=== PATIENT | male | born 1950 | race African-American/Black ===

== ENCOUNTER 2017-03-10 16:21 | Emergency (ER) | payer MEDICARE, MEDICAID ==
[~2017-03-10] VITALS: Ht 172.7 cm; Wt 135.0 kg
[~2017-03-10 16:21] MED LIST: AMLO10TA4 PO; ASPI-1159 PO; ATOR80TA PO; BUDE6HFA IH; CLOP75TA33 PO; EZET10TA PO; FOLI-43 PO; GLIM1TAB2 PO; GLIM2TAB2 PO; GLYB2.5T4 PO; INSU100C11 SQ; INSU3INS6 SUBCUT; METF500T4 PO; METO-293 PO; OLOP2.5D OP; OMEP20TA80 PO; POTA20PA15 PO; SITA100T6 PO; TRAM50TA3 PO; TRAV5DRO4 OP
[2017-03-10 18:30] LABS: CARBON DIOXIDE 23 mEq/L (21-32); CHLORIDE 111 mEq/L (98-107); TROPONIN I 0.05 ng/mL (0.00-0.04)
[2017-03-10] MEDS ORDERED: MORPHINE SULFATE 10 MG/ML CPJ IM ONE (18:30)
[2017-03-10] MEDS ORDERED: ONDANSETRON 4MG ODT PO ONE (18:30)
[2017-03-10 18:45] LABS: BASOPHILS % 0.5 % (0.0-2.0); EOSINOPHILS % 3.5 % (0.0-5.0); HEMATOCRIT. 33.6 % (42.0-52.0); HEMOGLOBIN. 11.3 g/dL (14.0-18.0); MEAN CORPUSCULAR HEMOGLOBIN 29.5 pg (28.0-32.0); MEAN CORPUSCULAR VOLUME 87.7 fL (80.0-94.0); MEAN PLATELET VOLUME 8.5 fl (7.4-10.4); MONOCYTES % 7.2 % (2.0-8.0); NEUTROPHILS % 51.8 % (40.0-76.0); PLATELET 159 x1000/uL (130-400); RED BLOOD CELL COUNT 3.84 mill/uL (4.7-6.1); RED CELL DISTRIBUTION WIDTH 13.9 % (11.6-14.6)
[2017-03-10 18:47] LABS: INR 1.1; PARTIAL THROMBOPLASTIN TIME 27.8 sec (23.4-31.0); PROTHROMBIN TIME 11.1 sec (9.4-11.6)
[2017-03-10] MEDS ORDERED: SODIUM CHLORIDE 0.9% 1,000 ML IV ONE (19:02)
[2017-03-10 22:31] LABS: CLARITY URINE CLEAR (CLEAR); COLOR URINE YELLOW (YELLOW); GLUCOSE URINE NEGATIVE (NEGATIVE); KETONES URINE NEGATIVE (NEGATIVE); LEUKOCYTE ESTERASE URINE NEGATIVE (NEGATIVE); NITRITE URINE NEGATIVE (NEGATIVE); OCCULT BLOOD URINE NEGATIVE (NEGATIVE); PH URINE 5.5 (4.5-8.0); PROTEIN URINE NEGATIVE (NEGATIVE); SPECIFIC GRAVITY URINE 1.015 (1.005-1.030); UROBILINOGEN URINE 0.2 E.U./dL (0.2-1.0)
[2017-03-11 04:40] VITALS: BP 116/66
== END 2017-03-11 04:48 | disposition home or self-care (01) ==
LOC: ER 16:21
DX: R10.9 Unspecified abdominal pain (principal); F17.200 Nicotine dependence, unspecified, uncomplicated; F11.10 Opioid abuse, uncomplicated; J44.9 Chronic obstructive pulmonary disease, unspecified; I10 Essential (primary) hypertension; E11.9 Type 2 diabetes mellitus without complications; H40.9 Unspecified glaucoma; E78.00 Pure hypercholesterolemia, unspecified; Z95.1 Presence of aortocoronary bypass graft; Z95.0 Presence of cardiac pacemaker; Z79.4 Long term (current) use of insulin; Z79.82 Long term (current) use of aspirin
CPT/HCPCS: 36415; 71010; 74176; 80048; 80053; 81003; 82962; 83605; 83690; 84484; 85025; 85610; 85730; 93005; 96360; 96361; 96372; 99285; J2270; J7030; Q0162

== ENCOUNTER 2017-12-28 21:02 | Emergency (ER) | payer MEDICARE, MEDICAID ==
[~2017-12-28] VITALS: Ht 172.7 cm; Wt 140.0 kg
[~2017-12-28 21:02] MED LIST changes: -EZET10TA PO; -METF500T4 PO; +METF500T6 PO; +OMEP20TA2 PO; -OMEP20TA80 PO; +SITA100T11 PO; -SITA100T6 PO; +ZET10 PO
[2017-12-29] MEDS ORDERED: MORPHINE SULFATE 4 MG/ML CPJ (NOT FOR IM USE) IV ONE (01:00)
[2017-12-29 02:14] LABS: CHLORIDE 103 mEq/L (98-107)
[2017-12-29 02:18] LABS: BASOPHILS % 0.6 % (0.0-2.0); EOSINOPHILS % 4.4 % (0.0-5.0); HEMATOCRIT. 38.7 % (42.0-52.0); LYMPHOCYTES % 39.5 % (20.0-50.0); MEAN CORPUSCULAR HEMOGLOBIN 29.9 pg (28.0-32.0); MEAN PLATELET VOLUME 8.8 fl (7.4-10.4); MONOCYTES % 9.1 % (2.0-8.0); NEUTROPHILS % 46.4 % (40.0-76.0); PLATELET 181 x1000/uL (130-400); RED BLOOD CELL COUNT 4.35 mill/uL (4.7-6.1); RED CELL DISTRIBUTION WIDTH 14.3 % (11.6-14.6)
[2017-12-29 02:25] LABS: BETA HYDROXYBUTYRATE 0.1 mMol/L (0.0-0.3)
[2017-12-29 06:52] VITALS: BP 155/69
== END 2017-12-29 06:53 | disposition home or self-care (01) ==
LOC: ER 12-29 02:44
DX: M54.5 Low back pain (principal); E11.65 Type 2 diabetes mellitus with hyperglycemia; F17.210 Nicotine dependence, cigarettes, uncomplicated; Z79.84 Long term (current) use of oral hypoglycemic drugs; Z79.4 Long term (current) use of insulin
CPT/HCPCS: 36415; 80053; 82010; 82962; 85025; 93005; 96374; 99285; J2270

== ENCOUNTER 2018-03-19 06:00 | Inpatient (IN) | payer MEDICARE, MEDICAID ==
[~2018-03-19] VITALS: Ht 172.7 cm; Wt 120.2 kg
[2018-03-19 08:02] LABS: BASOPHILS % 0.6 % (0.0-2.0); CHLORIDE 111 mEq/L (98-107); EOSINOPHILS % 4.4 % (0.0-5.0); HEMATOCRIT. 36.8 % (42.0-52.0); HEMOGLOBIN. 12.5 g/dL (14.0-18.0); LYMPHOCYTES % 29.7 % (20.0-50.0); MEAN CORPUSCULAR HEMOGLOBIN 30.2 pg (28.0-32.0); MEAN CORPUSCULAR VOLUME 88.7 fL (80.0-94.0); MEAN PLATELET VOLUME 8.1 fl (7.4-10.4); MONOCYTES % 8.8 % (2.0-8.0); NEUTROPHILS % 56.5 % (40.0-76.0); PLATELET 201 x1000/uL (130-400); RED BLOOD CELL COUNT 4.15 mill/uL (4.7-6.1); RED CELL DISTRIBUTION WIDTH 14.5 % (11.6-14.6)
[2018-03-19 08:05] LABS: PROTHROMBIN TIME 10.5 sec (9.1-11.1)
[2018-03-19] MEDS ORDERED: ONDANSETRON HCL 4MG/2ML VIAL IV ONE (08:15)
[2018-03-19] MEDS ORDERED: MORPHINE SULFATE 4 MG/ML CPJ (NOT FOR IM USE) IV ONE (08:15)
[2018-03-19] MEDS ORDERED: DIPHENHYDRAMINE 50MG/ML VIAL IV ONE (09:45)
[2018-03-19] MEDS ORDERED: FUROSEMIDE 20MG/2ML VIAL IVP ONE (10:00)
[2018-03-19 11:57] LABS: CLARITY URINE CLEAR (CLEAR); COLOR URINE YELLOW (YELLOW); KETONES URINE NEGATIVE (NEGATIVE); LEUKOCYTE ESTERASE URINE NEGATIVE (NEGATIVE); NITRITE URINE NEGATIVE (NEGATIVE); OCCULT BLOOD URINE NEGATIVE (NEGATIVE); PH URINE 5.5 (4.5-8.0); PROTEIN URINE NEGATIVE (NEGATIVE); SPECIFIC GRAVITY URINE 1.017 (1.005-1.030); UROBILINOGEN URINE 0.2 E.U./dL (0.2-1.0)
[2018-03-19 15:17] VITALS: BP 145/70
[2018-03-19 15:31] VITALS: BP 145/71
[2018-03-19] MEDS ORDERED: DEXTROSE 50% WATER 50ML SYRINGE IV PRN (15:45)
[2018-03-19] MEDS ORDERED: MORPHINE SULFATE 4 MG/ML CPJ (NOT FOR IM USE) IV PRN (15:45)
[2018-03-19] MEDS ORDERED: ONDANSETRON HCL 4MG/2ML VIAL IV PRN (15:45)
[2018-03-19] MEDS ORDERED: HYDROCODONE/ACETAMINOPHEN 5/325MG TABLET PO PRN (15:45)
[2018-03-19] MEDS ORDERED: CETI10CA8 PO (15:46)
[2018-03-19] MEDS ORDERED: PENT400T11 PO (15:46)
[2018-03-19] MEDS: BLOOD SUGAR DIAGNOSTIC STRIP TEST SCH ×2 (16:14→21:31)
[2018-03-19] MEDS ORDERED: ONDANSETRON 4MG ODT PO PRN (16:15)
[2018-03-19] MEDS: INSULIN LISPRO 100 UNITS/ML SUBCUT SCH ×2 (16:59→21:31)
[2018-03-19 20:00] VITALS: BP 110/51
[2018-03-19] MEDS ORDERED: ATORVASTATIN CALCIUM 40MG TABLET PO SCH (21:00)
[2018-03-19] MEDS: ENOXAPARIN 40MG/0.4ML SYR SUBCUT SCH (21:22)
[2018-03-20] VITALS: BP 113/53
[2018-03-20 04:00] VITALS: BP 137/62
[2018-03-20] MEDS: BLOOD SUGAR DIAGNOSTIC STRIP TEST SCH ×2 (06:23→11:33)
[2018-03-20] MEDS: INSULIN LISPRO 100 UNITS/ML SUBCUT SCH ×2 (06:23→13:00)
[2018-03-20 07:30] LABS: BASOPHILS % 0.3 % (0.0-2.0); EOSINOPHILS % 4.7 % (0.0-5.0); HEMATOCRIT. 35.4 % (42.0-52.0); HEMOGLOBIN. 11.8 g/dL (14.0-18.0); LYMPHOCYTES % 42.3 % (20.0-50.0); MEAN CORPUSCULAR HEMOGLOBIN 29.6 pg (28.0-32.0); MEAN CORPUSCULAR VOLUME 88.6 fL (80.0-94.0); MEAN PLATELET VOLUME 8.4 fl (7.4-10.4); MONOCYTES % 10.3 % (2.0-8.0); NEUTROPHILS % 42.4 % (40.0-76.0); PLATELET 188 x1000/uL (130-400); RED BLOOD CELL COUNT 3.99 mill/uL (4.7-6.1); RED CELL DISTRIBUTION WIDTH 14.4 % (11.6-14.6)
[2018-03-20 08:00] VITALS: BP 140/68
[2018-03-20] MEDS: ENOXAPARIN 40MG/0.4ML SYR SUBCUT SCH (08:25)
[2018-03-20] MEDS ORDERED: CLOPIDOGREL 75MG TABLET PO SCH (09:00)
[2018-03-20] MEDS ORDERED: ASPIRIN 81MG TABLET PO SCH (09:00)
[2018-03-20 09:15] LABS: CHLORIDE 108 mEq/L (98-107)
[2018-03-20 12:00] VITALS: BP 130/65
[2018-03-20 14:04] VITALS: BP 121/61
[2018-03-20] MEDS ORDERED: AMLODIPINE 2.5MG TABLET PO SCH (21:00)
== END 2018-03-20 15:45 | disposition home or self-care (01) | DRG 291 ==
LOC: ER 06:00 → EDBEDREQ 09:58 → 8WST 13:11 → EDBEDREQ 13:12 → ENRESERV 14:01 → 8WST 15:11
PROVIDERS: ADMIT Family Medicine; ATTEND Internal Medicine
PROC: 5A09357 Assistance with Respiratory Ventilation, Less than 24 Consecutive Hours, Continuous Positive Airway Pressure (ICD-10-PCS; principal; 2018-03-20)
DX: I13.0 Hypertensive heart and chronic kidney disease with heart failure and stage 1 through stage 4 chronic kidney disease, or unspecified chronic kidney disease (principal); I50.41 Acute combined systolic (congestive) and diastolic (congestive) heart failure; Z68.41 Body mass index [BMI] 40.0-44.9, adult; E11.51 Type 2 diabetes mellitus with diabetic peripheral angiopathy without gangrene; E78.00 Pure hypercholesterolemia, unspecified; E78.5 Hyperlipidemia, unspecified; F17.210 Nicotine dependence, cigarettes, uncomplicated; G47.33 Obstructive sleep apnea (adult) (pediatric); H40.9 Unspecified glaucoma; J44.9 Chronic obstructive pulmonary disease, unspecified; I49.5 Sick sinus syndrome; M19.90 Unspecified osteoarthritis, unspecified site; N18.9 Chronic kidney disease, unspecified; E66.01 Morbid (severe) obesity due to excess calories; D64.9 Anemia, unspecified; I70.201 Unspecified atherosclerosis of native arteries of extremities, right leg; E11.22 Type 2 diabetes mellitus with diabetic chronic kidney disease; E87.8 Other disorders of electrolyte and fluid balance, not elsewhere classified; Z96.649 Presence of unspecified artificial hip joint; Z96.659 Presence of unspecified artificial knee joint; Z79.84 Long term (current) use of oral hypoglycemic drugs; Z79.82 Long term (current) use of aspirin; Z79.4 Long term (current) use of insulin; Z79.899 Other long term (current) drug therapy; Z95.820 Peripheral vascular angioplasty status with implants and grafts; Z95.0 Presence of cardiac pacemaker; Z79.02 Long term (current) use of antithrombotics/antiplatelets; Z91.048 Other nonmedicinal substance allergy status
CPT/HCPCS: 36415; 71045; 80048; 80053; 81003; 82962; 83880; 84484; 85025; 85610; 85730; 93005; 93306; 93923; 93970; 96374; 96375; 99285; J1200; J1650; J1815; J1940; J2270; J2405

== ENCOUNTER 2018-04-26 10:24 | Day surgery (SDC) | payer MEDICARE, MEDICAID ==
[~2018-04-26 10:24] MED LIST changes: +CETI10CA8 PO; +METF-414 PO; -METF500T6 PO; +PENT400T11 PO
[2018-04-26 12:35] LABS: CHLORIDE 110 mEq/L (98-107)
[2018-04-26] MEDS ORDERED: LIDOCAINE HCL 1% 20ML VIAL (Pyxis) INJ ONE (12:50)
[2018-04-26] MEDS ORDERED: IODIXANOL 320MG/ML 100 ML BOTTLE IV ONE (12:50)
[2018-04-26] MEDS ORDERED: HEPARIN SODIUM 1,000 UNIT/1ML VIAL IV ONE (13:02)
[2018-04-26] MEDS ORDERED: MIDAZOLAM HCL 2 MG/2 ML VIAL ONE (13:08)
[2018-04-26] MEDS ORDERED: FENTANYL CITRATE/PF 50MCG/ML 2ML VIAL ONE (13:08)
[2018-04-26] MEDS ORDERED: ACETAMINOPHEN 325MG TABLET PO PRN (13:45)
[2018-04-26] MEDS ORDERED: ONDANSETRON HCL 4MG/2ML INJ IV PRN (13:45)
== END 2018-04-26 17:00 | disposition home or self-care (01) ==
LOC: CARD 10:24
PROVIDERS: ATTEND Specialist
DX: I25.10 Atherosclerotic heart disease of native coronary artery without angina pectoris (principal); J44.9 Chronic obstructive pulmonary disease, unspecified; E78.5 Hyperlipidemia, unspecified; E66.01 Morbid (severe) obesity due to excess calories; F17.210 Nicotine dependence, cigarettes, uncomplicated; G47.33 Obstructive sleep apnea (adult) (pediatric); I13.0 Hypertensive heart and chronic kidney disease with heart failure and stage 1 through stage 4 chronic kidney disease, or unspecified chronic kidney disease; M19.90 Unspecified osteoarthritis, unspecified site; E11.22 Type 2 diabetes mellitus with diabetic chronic kidney disease; N18.9 Chronic kidney disease, unspecified; I50.9 Heart failure, unspecified; Z68.41 Body mass index [BMI] 40.0-44.9, adult; Z91.048 Other nonmedicinal substance allergy status; Z95.0 Presence of cardiac pacemaker; Z96.659 Presence of unspecified artificial knee joint; Z79.899 Other long term (current) drug therapy; Z79.4 Long term (current) use of insulin; Z79.02 Long term (current) use of antithrombotics/antiplatelets; Z79.84 Long term (current) use of oral hypoglycemic drugs; Z79.82 Long term (current) use of aspirin; Z96.649 Presence of unspecified artificial hip joint
CPT/HCPCS: 36415; 80048; 93458; 99152; 99153; C1769; C1893; J1644; J2250; J3010; J3490; Q9967

== ENCOUNTER 2018-05-14 10:11 | Inpatient (IN) | payer MEDICARE, MEDICAID ==
[~2018-05-14] VITALS: Ht 172.7 cm; Wt 139.7 kg
[2018-05-14] MEDS ORDERED: ONDANSETRON HCL 4MG/2ML INJ IV STA (10:33)
[2018-05-14] MEDS ORDERED: MORPHINE SULFATE 4 MG/ML CPJ (NOT FOR IM USE) IV STA (10:33)
[2018-05-14] MEDS ORDERED: ASPIRIN 81MG TABLET PO ONE (10:45)
[2018-05-14] MEDS ORDERED: NITROGLYCERIN OINT 1GM/INCH UDPKT TD ONE (10:45)
[2018-05-14 10:53] LABS: BASOPHILS % 0.5 % (0.0-2.0); HEMATOCRIT. 38.3 % (42.0-52.0); HEMOGLOBIN. 12.5 g/dL (14.0-18.0); LYMPHOCYTES % 24.7 % (20.0-50.0); MEAN CORPUSCULAR HEMOGLOBIN 29.3 pg (28.0-32.0); MEAN CORPUSCULAR VOLUME 89.2 fL (80.0-94.0); MEAN PLATELET VOLUME 7.5 fl (7.4-10.4); MONOCYTES % 7.5 % (2.0-8.0); NEUTROPHILS % 63.3 % (40.0-76.0); PLATELET 175 x1000/uL (130-400); RED BLOOD CELL COUNT 4.29 mill/uL (4.7-6.1); RED CELL DISTRIBUTION WIDTH 14.8 % (11.6-14.6)
[2018-05-14 11:03] LABS: CHLORIDE 108 mEq/L (98-107)
[2018-05-14 11:12] LABS: D-DIMER 15.31 mg/L FEU (<0.50); PARTIAL THROMBOPLASTIN TIME 27.2 sec (23.4-31.0); PROTHROMBIN TIME 10.5 sec (9.1-11.1)
[2018-05-14 14:11] LABS: CLARITY URINE CLEAR (CLEAR); COLOR URINE YELLOW (YELLOW); KETONES URINE NEGATIVE (NEGATIVE); LEUKOCYTE ESTERASE URINE NEGATIVE (NEGATIVE); NITRITE URINE NEGATIVE (NEGATIVE); OCCULT BLOOD URINE NEGATIVE (NEGATIVE); PROTEIN URINE NEGATIVE (NEGATIVE); SPECIFIC GRAVITY URINE 1.009 (1.005-1.030); UROBILINOGEN URINE 0.2 E.U./dL (0.2-1.0)
[2018-05-14 14:29] LABS: *AMPHETAMINES SCREEN URINE NEGATIVE (NEGATIVE); *BARBITURATES SCREEN URINE NEGATIVE (NEGATIVE); *BENZODIAZEPINES SCREEN URINE NEGATIVE (NEGATIVE); *COCAINE SCREEN URINE PRESUMTIVE POSITIVE (NEGATIVE); CANNABINOID URINE SCREEN NEGATIVE (NEGATIVE); METHADONE URINE SCREEN NEGATIVE (NEGATIVE); OPIATES URINE SCREEN PRESUMTIVE POSITIVE (NEGATIVE); PHENCYCLIDINE URINE SCREEN NEGATIVE (NEGATIVE)
[2018-05-14] MEDS: MORPHINE SULFATE 4 MG/ML CPJ (NOT FOR IM USE) IV PRN ×2 (16:05→21:10)
[2018-05-14] MEDS ORDERED: DEXTROSE 50% WATER 50ML SYRINGE IV PRN (16:15)
[2018-05-14] MEDS ORDERED: ONDANSETRON HCL 4MG/2ML INJ IV PRN (16:15)
[2018-05-14] MEDS ORDERED: CLONIDINE 0.1MG TABLET PO PRN (16:15)
[2018-05-14 17:43] LABS: CREATINE KINASE 120 IU/L (39-308); HDL CHOLESTEROL 45 mg/dL (40-59); LDL CHOLESTEROL 154 mg/dL (5-100)
[2018-05-14 17:48] LABS: CREATINE KINASE MB FRACTION 1.4 ng/mL (0.5-3.6)
[2018-05-14 20:00] VITALS: BP 121/81
[2018-05-14 22:00] VITALS: BP 121/81
[2018-05-14] MEDS: BLOOD SUGAR DIAGNOSTIC STRIP TEST SCH (22:00)
[2018-05-14] MEDS: NITROGLYCERIN OINT 1GM/INCH UDPKT TD SCH (22:19)
[2018-05-15] VITALS: BP 122/61
[2018-05-15] MEDS: ENOXAPARIN 150MG/ML SYR SUBCUT SCH ×3 (00:19→20:58)
[2018-05-15] MEDS: ATORVASTATIN CALCIUM 40MG TABLET PO SCH ×2 (00:21→20:57)
[2018-05-15] MEDS: INSULIN LISPRO 100 UNITS/ML SUBCUT SCH ×5 (00:42→21:04)
[2018-05-15] MEDS: CLOPIDOGREL 75MG TABLET PO SCH ×2 (00:48→08:16)
[2018-05-15] MEDS: MORPHINE SULFATE 4 MG/ML CPJ (NOT FOR IM USE) IV PRN ×4 (01:29→20:06)
[2018-05-15] MEDS ORDERED: SACU1TAB7 MT (01:36)
[2018-05-15] MEDS ORDERED: UMEC62.5 INH (01:36)
[2018-05-15] MEDS ORDERED: ALBU18HF2 IH (01:36)
[2018-05-15] MEDS ORDERED: CARV6.2548 MT (01:36)
[2018-05-15] MEDS ORDERED: FURO40TA5 MT (01:36)
[2018-05-15] MEDS ORDERED: FLUT15.88 BOTHNSTRLS (01:36)
[2018-05-15] MEDS ORDERED: IPRATROPIUM/ALBUTEROL 0.5-3(2.5)MG/3ML NEB HHN PRN (02:00)
[2018-05-15 04:00] VITALS: BP 108/71
[2018-05-15] MEDS: NITROGLYCERIN OINT 1GM/INCH UDPKT TD SCH ×3 (05:14→20:57)
[2018-05-15] MEDS: BLOOD SUGAR DIAGNOSTIC STRIP TEST SCH ×4 (05:20→20:58)
[2018-05-15 07:04] LABS: BASOPHILS % 0.4 % (0.0-2.0); EOSINOPHILS % 2.5 % (0.0-5.0); HEMATOCRIT. 35.3 % (42.0-52.0); HEMOGLOBIN. 11.6 g/dL (14.0-18.0); LYMPHOCYTES % 26.6 % (20.0-50.0); MEAN CORPUSCULAR HEMOGLOBIN 28.8 pg (28.0-32.0); MEAN CORPUSCULAR VOLUME 88.1 fL (80.0-94.0); MEAN PLATELET VOLUME 8.5 fl (7.4-10.4); MONOCYTES % 9.5 % (2.0-8.0); PLATELET 180 x1000/uL (130-400); RED BLOOD CELL COUNT 4.01 mill/uL (4.7-6.1); RED CELL DISTRIBUTION WIDTH 14.5 % (11.6-14.6)
[2018-05-15 08:00] VITALS: BP 103/58
[2018-05-15] MEDS: ASPIRIN 81MG TABLET PO SCH (08:16)
[2018-05-15] MEDS: HYDROCODONE/ACETAMINOPHEN 5/325MG TABLET PO PRN (08:18)
[2018-05-15 12:00] VITALS: BP 99/55
[2018-05-15 16:00] VITALS: BP 117/70
[2018-05-15 20:00] VITALS: BP 117/75
[2018-05-16] VITALS: BP 135/74
[2018-05-16] MEDS: MORPHINE SULFATE 4 MG/ML CPJ (NOT FOR IM USE) IV PRN (01:13)
[2018-05-16 04:00] VITALS: BP 111/69
[2018-05-16] MEDS: BLOOD SUGAR DIAGNOSTIC STRIP TEST SCH ×2 (05:56→12:46)
[2018-05-16] MEDS: NITROGLYCERIN OINT 1GM/INCH UDPKT TD SCH ×2 (05:57→14:52)
[2018-05-16] MEDS: INSULIN LISPRO 100 UNITS/ML SUBCUT SCH ×2 (05:57→12:59)
[2018-05-16 06:57] LABS: BASOPHILS % 0.3 % (0.0-2.0); EOSINOPHILS % 2.7 % (0.0-5.0); HEMATOCRIT. 35.6 % (42.0-52.0); HEMOGLOBIN. 11.9 g/dL (14.0-18.0); LYMPHOCYTES % 28.8 % (20.0-50.0); MEAN CORPUSCULAR HEMOGLOBIN 29.4 pg (28.0-32.0); MEAN CORPUSCULAR VOLUME 88.1 fL (80.0-94.0); MEAN PLATELET VOLUME 8.4 fl (7.4-10.4); MONOCYTES % 11.8 % (2.0-8.0); NEUTROPHILS % 56.4 % (40.0-76.0); PLATELET 191 x1000/uL (130-400); RED BLOOD CELL COUNT 4.04 mill/uL (4.7-6.1); RED CELL DISTRIBUTION WIDTH 14.4 % (11.6-14.6)
[2018-05-16 07:12] LABS: CHLORIDE 105 mEq/L (98-107)
[2018-05-16 08:00] VITALS: BP_SYST 125; BP_SYST 128; BP_DIAS 64; BP_DIAS 74
[2018-05-16] MEDS: CLOPIDOGREL 75MG TABLET PO SCH (10:24)
[2018-05-16] MEDS: ASPIRIN 81MG TABLET PO SCH (10:24)
[2018-05-16] MEDS: ENOXAPARIN 150MG/ML SYR SUBCUT SCH (10:26)
[2018-05-16] MEDS: HYDROCODONE/ACETAMINOPHEN 5/325MG TABLET PO PRN (10:35)
[2018-05-16 15:36] VITALS: BP 125/64
== END 2018-05-16 16:30 | disposition home or self-care (01) | DRG 206 ==
LOC: ER 10:54 → 5WST 12:37 → EDBEDREQ 14:56 → ENRESERV 21:04 → EDBEDREQ 21:56
PROVIDERS: ADMIT Internal Medicine; ATTEND Internal Medicine
DX: M94.0 Chondrocostal junction syndrome [Tietze] (principal); I82.431 Acute embolism and thrombosis of right popliteal vein; I13.0 Hypertensive heart and chronic kidney disease with heart failure and stage 1 through stage 4 chronic kidney disease, or unspecified chronic kidney disease; E44.1 Mild protein-calorie malnutrition; Z68.42 Body mass index [BMI] 45.0-49.9, adult; I42.9 Cardiomyopathy, unspecified; I50.22 Chronic systolic (congestive) heart failure; I82.411 Acute embolism and thrombosis of right femoral vein; E11.22 Type 2 diabetes mellitus with diabetic chronic kidney disease; E11.51 Type 2 diabetes mellitus with diabetic peripheral angiopathy without gangrene; E66.09 Other obesity due to excess calories; E78.00 Pure hypercholesterolemia, unspecified; E78.5 Hyperlipidemia, unspecified; F14.90 Cocaine use, unspecified, uncomplicated; F17.210 Nicotine dependence, cigarettes, uncomplicated; H40.9 Unspecified glaucoma; I25.10 Atherosclerotic heart disease of native coronary artery without angina pectoris; I27.20 Pulmonary hypertension, unspecified; Z96.649 Presence of unspecified artificial hip joint; Z96.659 Presence of unspecified artificial knee joint; J44.9 Chronic obstructive pulmonary disease, unspecified; E87.8 Other disorders of electrolyte and fluid balance, not elsewhere classified; N18.3 Chronic kidney disease, stage 3 (moderate); Z79.02 Long term (current) use of antithrombotics/antiplatelets; Z79.4 Long term (current) use of insulin; Z95.0 Presence of cardiac pacemaker; Z98.49 Cataract extraction status, unspecified eye; Z79.899 Other long term (current) drug therapy; Z79.82 Long term (current) use of aspirin; Z91.048 Other nonmedicinal substance allergy status
CPT/HCPCS: 36415; 71045; 78580; 80048; 80061; 80305; 82550; 82553; 82962; 83880; 84443; 84484; 85379; 93005; 93306; 93970; 94640; 96374; 96375; 99285; J1650; J1815; J2270; J2405; J7620

== ENCOUNTER 2018-07-17 08:52 | Emergency (ER) | payer MEDICARE, MEDICAID ==
[~2018-07-17] VITALS: Ht 172.7 cm; Wt 150.0 kg
[~2018-07-17 08:52] MED LIST changes: +ALBU18HF2 IH; +CARV6.2548 MT; +FLUT15.88 BOTHNSTRLS; +FURO40TA5 MT; -GLIM1TAB2 PO; -METF-414 PO; +SACU1TAB7 MT; +UMEC62.5 INH
[2018-07-17] MEDS ORDERED: IBUPROFEN 400MG TABLET PO ONE (09:45)
[2018-07-17 10:41] LABS: BASOPHILS % 0.4 % (0.0-2.0); EOSINOPHILS % 1.5 % (0.0-5.0); HEMATOCRIT. 36.2 % (42.0-52.0); HEMOGLOBIN. 11.8 g/dL (14.0-18.0); MEAN CORPUSCULAR HEMOGLOBIN 28.1 pg (28.0-32.0); MEAN CORPUSCULAR VOLUME 86.3 fL (80.0-94.0); MONOCYTES % 8.5 % (2.0-8.0); NEUTROPHILS % 68.6 % (40.0-76.0); PLATELET 316 x1000/uL (130-400); RED BLOOD CELL COUNT 4.19 mill/uL (4.7-6.1); RED CELL DISTRIBUTION WIDTH 15.9 % (11.6-14.6)
[2018-07-17 10:45] LABS: CLARITY URINE CLOUDY (CLEAR); COLOR URINE YELLOW (YELLOW); KETONES URINE NEGATIVE (NEGATIVE); LEUKOCYTE ESTERASE URINE 3+ (NEGATIVE); NITRITE URINE POSITIVE (NEGATIVE); OCCULT BLOOD URINE 2+ (NEGATIVE); PROTEIN URINE NEGATIVE (NEGATIVE); SPECIFIC GRAVITY URINE 1.008 (1.005-1.030); UROBILINOGEN URINE 0.2 E.U./dL (0.2-1.0)
[2018-07-17 10:46] LABS: CHLORIDE 107 mEq/L (98-107)
[2018-07-17] MEDS ORDERED: VISCOUS LIDOCAINE 2% 15 ML UDC PO STA (11:11)
[2018-07-17] MEDS ORDERED: MAGNESIUM/ALUMINUM HYDROXIDE/SIMETHICONE 30ML UDC PO STA (11:11)
[2018-07-17] MEDS ORDERED: CEFTRIAXONE 1 G PREMIX 50 ML IV ONE (11:15)
[2018-07-17 11:48] VITALS: BP 94/57
== END 2018-07-17 12:00 | disposition home or self-care (01) ==
LOC: ER 09:51
DX: N45.3 Epididymo-orchitis (principal); N30.90 Cystitis, unspecified without hematuria; D29.32 Benign neoplasm of left epididymis; N28.9 Disorder of kidney and ureter, unspecified; E87.70 Fluid overload, unspecified; D64.9 Anemia, unspecified; Z95.0 Presence of cardiac pacemaker
CPT/HCPCS: 36415; 71045; 76870; 80053; 81003; 83880; 84484; 85025; 87077; 87086; 87186; 87804; 93976; 96365; 99284; J0696

== ENCOUNTER 2018-07-19 15:20 | Inpatient (IN) | payer MEDICARE, MEDICAID ==
[~2018-07-19] VITALS: Ht 172.7 cm; Wt 131.1 kg
[2018-07-19] VITALS: BP 109/61
[2018-07-19] MEDS ORDERED: ACETAMINOPHEN 325MG TABLET PO PRN (16:00)
[2018-07-19] MEDS ORDERED: DEXTROSE 50% WATER 50ML SYRINGE IV PRN ×2 (16:00→18:00)
[2018-07-19] MEDS ORDERED: TRAMADOL 50MG TABLET PO PRN (16:00)
[2018-07-19 16:46] VITALS: BP 139/79
[2018-07-19 16:51] LABS: CLARITY URINE CLOUDY (CLEAR); COLOR URINE YELLOW (YELLOW); KETONES URINE NEGATIVE (NEGATIVE); LEUKOCYTE ESTERASE URINE 2+ (NEGATIVE); NITRITE URINE NEGATIVE (NEGATIVE); OCCULT BLOOD URINE 1+ (NEGATIVE); PH URINE 5.5 (4.5-8.0); PROTEIN URINE NEGATIVE (NEGATIVE); SPECIFIC GRAVITY URINE 1.014 (1.005-1.030); UROBILINOGEN URINE 0.2 E.U./dL (0.2-1.0)
[2018-07-19] MEDS ORDERED: INSULIN LISPRO 100 UNITS/ML SUBCUT SCH ×2 (17:40→18:15)
[2018-07-19] MEDS: BLOOD SUGAR DIAGNOSTIC STRIP TEST SCH ×2 (18:08→20:40)
[2018-07-19] MEDS: GLYBURIDE 2.5MG TABLET PO SCH (18:11)
[2018-07-19] MEDS ORDERED: LEVOFLOXACIN 500MG PREMIX 100 ML IV NR (18:30)
[2018-07-19] MEDS ORDERED: INFLUENZA VIRUS VACCINE(AFLURIA) 0.5ML SYR IM ONE (18:30)
[2018-07-19] MEDS: HYDROCODONE/ACETAMINOPHEN 5/325MG TABLET PO PRN (19:05)
[2018-07-19 20:00] VITALS: BP 129/68
[2018-07-19] MEDS ORDERED: BLOOD SUGAR DIAGNOSTIC STRIP TEST SCH (21:00)
[2018-07-19 21:11] LABS: BASOPHILS % 0.6 % (0.0-2.0); EOSINOPHILS % 1.8 % (0.0-5.0); HEMATOCRIT. 35.6 % (42.0-52.0); HEMOGLOBIN. 11.6 g/dL (14.0-18.0); LYMPHOCYTES % 25.2 % (20.0-50.0); MEAN CORPUSCULAR HEMOGLOBIN 28.4 pg (28.0-32.0); MEAN CORPUSCULAR VOLUME 87.2 fL (80.0-94.0); MEAN PLATELET VOLUME 7.8 fl (7.4-10.4); MONOCYTES % 10.9 % (2.0-8.0); NEUTROPHILS % 61.5 % (40.0-76.0); PLATELET 316 x1000/uL (130-400); RED BLOOD CELL COUNT 4.09 mill/uL (4.7-6.1); RED CELL DISTRIBUTION WIDTH 16.2 % (11.6-14.6)
[2018-07-19 21:14] LABS: CHLORIDE 100 mEq/L (98-107)
[2018-07-19 21:16] LABS: INR 1.3; PARTIAL THROMBOPLASTIN TIME 37.3 sec (23.4-31.0); PROTHROMBIN TIME 12.7 sec (9.1-11.1)
[2018-07-19] MEDS: INSULIN LISPRO 100 UNITS/ML SUBCUT SCH (21:37)
[2018-07-19] MEDS: ATORVASTATIN CALCIUM 40MG TABLET PO SCH (21:38)
[2018-07-19] MEDS ORDERED: SODIUM POLYSTYRENE SULFONATE 15 G/60 ML BOT PO NR (23:00)
[2018-07-19] MEDS: ENOXAPARIN 40MG/0.4ML SYR SUBCUT SCH (23:33)
[2018-07-20] VITALS: BP 109/61
[2018-07-20 04:00] VITALS: BP 108/55
[2018-07-20] MEDS: BLOOD SUGAR DIAGNOSTIC STRIP TEST SCH ×4 (05:42→20:46)
[2018-07-20] MEDS: INSULIN LISPRO 100 UNITS/ML SUBCUT SCH ×5 (06:33→20:52)
[2018-07-20] MEDS: ASPIRIN 81MG EC TABLET PO SCH (10:30)
[2018-07-20] MEDS: GLYBURIDE 2.5MG TABLET PO SCH ×2 (10:30→17:44)
[2018-07-20] MEDS: ENOXAPARIN 40MG/0.4ML SYR SUBCUT SCH (10:31)
[2018-07-20] MEDS: CLOPIDOGREL 75MG TABLET PO SCH (10:31)
[2018-07-20 12:28] LABS: BASOPHILS % 0.7 % (0.0-2.0); HEMATOCRIT. 34.1 % (42.0-52.0); HEMOGLOBIN. 11.3 g/dL (14.0-18.0); LYMPHOCYTES % 26.1 % (20.0-50.0); MEAN CORPUSCULAR HEMOGLOBIN 28.6 pg (28.0-32.0); MEAN PLATELET VOLUME 8.2 fl (7.4-10.4); MONOCYTES % 7.8 % (2.0-8.0); NEUTROPHILS % 63.4 % (40.0-76.0); PLATELET 324 x1000/uL (130-400); RED BLOOD CELL COUNT 3.96 mill/uL (4.7-6.1); RED CELL DISTRIBUTION WIDTH 16.2 % (11.6-14.6)
[2018-07-20 12:44] LABS: CHLORIDE 102 mEq/L (98-107)
[2018-07-20] MEDS ORDERED: ENOXAPARIN 100MG/ML SYR SUBCUT NR (13:00)
[2018-07-20] MEDS: PANTOPRAZOLE SODIUM 40 MG/VIAL IV SCH (13:16)
[2018-07-20] MEDS: METOCLOPRAMIDE HCL 10MG/2ML VIAL IV SCH ×3 (13:16→23:10)
[2018-07-20] MEDS: HYDROCODONE/ACETAMINOPHEN 5/325MG TABLET PO PRN (13:33)
[2018-07-20 16:00] VITALS: BP 108/55
[2018-07-20 16:35] LABS: T4 FREE 1.33 ng/dL (0.76-1.46)
[2018-07-20] MEDS: METHIMAZOLE 5MG TABLET PO SCH (17:44)
[2018-07-20 18:00] VITALS: BP 108/55
[2018-07-20] MEDS ORDERED: LEVOFLOXACIN 500MG PREMIX 100 ML IV SCH (18:00)
[2018-07-20] MEDS ORDERED: LEVOFLOXACIN 250MG PREMIX 50 ML IV SCH (18:00)
[2018-07-20 20:00] VITALS: BP 114/66
[2018-07-20] MEDS: ATORVASTATIN CALCIUM 40MG TABLET PO SCH (20:47)
[2018-07-20] MEDS ORDERED: INSULIN GLARGINE UD 100 UNITS/ML SYR SUBCUT SCH (22:00)
[2018-07-20] MEDS: ENOXAPARIN 150MG/ML SYR SUBCUT SCH (23:10)
[2018-07-21] VITALS: BP 144/52
[2018-07-21] MEDS: HYDROCODONE/ACETAMINOPHEN 5/325MG TABLET PO PRN ×2 (03:54→09:37)
[2018-07-21 03:55] VITALS: BP 139/79
[2018-07-21] MEDS: BLOOD SUGAR DIAGNOSTIC STRIP TEST SCH ×4 (06:16→21:00)
[2018-07-21] MEDS: METOCLOPRAMIDE HCL 10MG/2ML VIAL IV SCH ×3 (06:23→17:41)
[2018-07-21 06:25] LABS: BASOPHILS % 0.3 % (0.0-2.0); EOSINOPHILS % 2.4 % (0.0-5.0); HEMOGLOBIN. 10.7 g/dL (14.0-18.0); LYMPHOCYTES % 30.7 % (20.0-50.0); MEAN CORPUSCULAR HEMOGLOBIN 28.5 pg (28.0-32.0); MEAN CORPUSCULAR VOLUME 85.2 fL (80.0-94.0); MEAN PLATELET VOLUME 7.9 fl (7.4-10.4); MONOCYTES % 8.1 % (2.0-8.0); NEUTROPHILS % 58.5 % (40.0-76.0); PLATELET 306 x1000/uL (130-400); RED BLOOD CELL COUNT 3.76 mill/uL (4.7-6.1); RED CELL DISTRIBUTION WIDTH 15.9 % (11.6-14.6)
[2018-07-21] MEDS: INSULIN LISPRO 100 UNITS/ML SUBCUT SCH ×7 (06:26→22:08)
[2018-07-21 08:00] VITALS: BP 128/68
[2018-07-21] MEDS: CLOPIDOGREL 75MG TABLET PO SCH (09:35)
[2018-07-21] MEDS: GLYBURIDE 2.5MG TABLET PO SCH (09:35)
[2018-07-21] MEDS: PANTOPRAZOLE SODIUM 40 MG/VIAL IV SCH (09:35)
[2018-07-21] MEDS: ASPIRIN 81MG EC TABLET PO SCH (09:36)
[2018-07-21] MEDS: METHIMAZOLE 5MG TABLET PO SCH ×2 (09:36→17:40)
[2018-07-21] MEDS: SULFAMETHOXAZOLE/TRIMETHOPRIM 800/160MG TABLET PO SCH ×2 (09:36→22:04)
[2018-07-21 12:00] VITALS: BP 134/69
[2018-07-21] MEDS: ENOXAPARIN 150MG/ML SYR SUBCUT SCH (12:31)
[2018-07-21] MEDS: UMECLIDINIUM BROMIDE 1 INH BLST.W.DEV IH SCH (14:39)
[2018-07-21] MEDS: FLUTICASONE/VILANTEROL 200-25 BLST.W.DEV ORI SCH (14:41)
[2018-07-21 16:00] VITALS: BP 128/69
[2018-07-21] MEDS: GLIMEPIRIDE 2MG TABLET PO SCH (17:41)
[2018-07-21] MEDS: ZOLPIDEM TARTRATE 5MG TABLET PO PRN (22:05)
[2018-07-21] MEDS: ATORVASTATIN CALCIUM 40MG TABLET PO SCH (22:05)
[2018-07-21] MEDS: INSULIN GLARGINE UD 100 UNITS/ML SYR SUBCUT SCH (22:09)
[2018-07-22] VITALS: BP 110/54
[2018-07-22] MEDS: METOCLOPRAMIDE HCL 10MG/2ML VIAL IV SCH ×4 (00:11→17:47)
[2018-07-22] MEDS: ENOXAPARIN 150MG/ML SYR SUBCUT SCH ×2 (00:12→12:31)
[2018-07-22 04:00] VITALS: BP 110/56
[2018-07-22] MEDS: INSULIN LISPRO 100 UNITS/ML SUBCUT SCH ×7 (06:19→20:56)
[2018-07-22] MEDS: BLOOD SUGAR DIAGNOSTIC STRIP TEST SCH ×4 (06:24→20:44)
[2018-07-22 07:13] LABS: BASOPHILS % 0.4 % (0.0-2.0); EOSINOPHILS % 3.3 % (0.0-5.0); HEMATOCRIT. 31.5 % (42.0-52.0); HEMOGLOBIN. 10.5 g/dL (14.0-18.0); LYMPHOCYTES % 31.9 % (20.0-50.0); MEAN CORPUSCULAR HEMOGLOBIN 28.7 pg (28.0-32.0); MEAN CORPUSCULAR VOLUME 85.8 fL (80.0-94.0); MEAN PLATELET VOLUME 7.9 fl (7.4-10.4); MONOCYTES % 9.6 % (2.0-8.0); NEUTROPHILS % 54.8 % (40.0-76.0); PLATELET 332 x1000/uL (130-400); RED BLOOD CELL COUNT 3.67 mill/uL (4.7-6.1); RED CELL DISTRIBUTION WIDTH 16.1 % (11.6-14.6)
[2018-07-22 08:00] VITALS: BP 117/70
[2018-07-22] MEDS: GLIMEPIRIDE 2MG TABLET PO SCH ×2 (08:13→17:47)
[2018-07-22] MEDS: METHIMAZOLE 5MG TABLET PO SCH ×2 (08:43→17:47)
[2018-07-22] MEDS: CLOPIDOGREL 75MG TABLET PO SCH (08:43)
[2018-07-22] MEDS: SULFAMETHOXAZOLE/TRIMETHOPRIM 800/160MG TABLET PO SCH ×2 (08:43→20:54)
[2018-07-22] MEDS: ASPIRIN 81MG EC TABLET PO SCH (08:43)
[2018-07-22] MEDS: FAMOTIDINE 20MG/2ML VIAL IV SCH ×2 (08:43→20:54)
[2018-07-22] MEDS: UMECLIDINIUM BROMIDE 1 INH BLST.W.DEV IH SCH (08:48)
[2018-07-22] MEDS: FLUTICASONE/VILANTEROL 200-25 BLST.W.DEV ORI SCH (08:49)
[2018-07-22] MEDS: ONDANSETRON 4MG ODT PO PRN (12:30)
[2018-07-22] MEDS: IBUPROFEN 800MG TABLET PO SCH ×2 (14:49→20:00)
[2018-07-22 20:00] VITALS: BP 97/66
[2018-07-22] MEDS: ATORVASTATIN CALCIUM 40MG TABLET PO SCH (20:54)
[2018-07-22] MEDS: HYDROCODONE/ACETAMINOPHEN 5/325MG TABLET PO PRN (20:55)
[2018-07-22] MEDS: INSULIN GLARGINE UD 100 UNITS/ML SYR SUBCUT SCH (20:56)
[2018-07-23] VITALS: BP 117/62
[2018-07-23] MEDS: METOCLOPRAMIDE HCL 10MG/2ML VIAL IV SCH ×4 (00:48→18:00)
[2018-07-23] MEDS: ENOXAPARIN 150MG/ML SYR SUBCUT SCH ×2 (00:48→12:45)
[2018-07-23] MEDS: IBUPROFEN 800MG TABLET PO SCH ×2 (00:49→08:00)
[2018-07-23] MEDS: ONDANSETRON 4MG ODT PO PRN ×2 (00:52→14:41)
[2018-07-23 04:00] VITALS: BP 112/64
[2018-07-23] MEDS: BLOOD SUGAR DIAGNOSTIC STRIP TEST SCH ×4 (06:16→21:15)
[2018-07-23] MEDS: INSULIN LISPRO 100 UNITS/ML SUBCUT SCH ×6 (06:29→21:33)
[2018-07-23 08:00] VITALS: BP 111/70
[2018-07-23] MEDS: GLIMEPIRIDE 2MG TABLET PO SCH ×2 (08:25→17:43)
[2018-07-23] MEDS: METHIMAZOLE 5MG TABLET PO SCH ×2 (08:26→17:43)
[2018-07-23] MEDS: FAMOTIDINE 20MG/2ML VIAL IV SCH (08:26)
[2018-07-23] MEDS: ASPIRIN 81MG EC TABLET PO SCH (08:26)
[2018-07-23] MEDS: SULFAMETHOXAZOLE/TRIMETHOPRIM 800/160MG TABLET PO SCH ×2 (08:26→21:31)
[2018-07-23] MEDS: FLUTICASONE/VILANTEROL 200-25 BLST.W.DEV ORI SCH (08:26)
[2018-07-23] MEDS: CLOPIDOGREL 75MG TABLET PO SCH (08:26)
[2018-07-23] MEDS: UMECLIDINIUM BROMIDE 1 INH BLST.W.DEV IH SCH (08:27)
[2018-07-23 08:44] LABS: BASOPHILS % 0.5 % (0.0-2.0); EOSINOPHILS % 3.4 % (0.0-5.0); HEMATOCRIT. 32.8 % (42.0-52.0); HEMOGLOBIN. 10.9 g/dL (14.0-18.0); LYMPHOCYTES % 44.3 % (20.0-50.0); MEAN CORPUSCULAR HEMOGLOBIN 28.4 pg (28.0-32.0); MEAN CORPUSCULAR VOLUME 85.4 fL (80.0-94.0); MEAN PLATELET VOLUME 7.8 fl (7.4-10.4); MONOCYTES % 7.8 % (2.0-8.0); PLATELET 321 x1000/uL (130-400); RED BLOOD CELL COUNT 3.84 mill/uL (4.7-6.1); RED CELL DISTRIBUTION WIDTH 15.7 % (11.6-14.6)
[2018-07-23 12:00] VITALS: BP 136/73
[2018-07-23] MEDS: TAMSULOSIN HCL 0.4MG SR CAPSULE PO SCH (12:42)
[2018-07-23] MEDS: CARVEDILOL 6.25 MG TABLET PO SCH ×2 (12:43→21:00)
[2018-07-23 16:00] VITALS: BP 110/63
[2018-07-23 20:00] VITALS: BP 104/60
[2018-07-23 21:23] LABS: CLARITY URINE CLOUDY (CLEAR); COLOR URINE YELLOW (YELLOW); KETONES URINE NEGATIVE (NEGATIVE); LEUKOCYTE ESTERASE URINE 3+ (NEGATIVE); NITRITE URINE NEGATIVE (NEGATIVE); OCCULT BLOOD URINE TRACE (NEGATIVE); PH URINE 5.5 (4.5-8.0); PROTEIN URINE NEGATIVE (NEGATIVE); UROBILINOGEN URINE 0.2 E.U./dL (0.2-1.0)
[2018-07-23] MEDS: ATORVASTATIN CALCIUM 40MG TABLET PO SCH (21:31)
[2018-07-23] MEDS: ZOLPIDEM TARTRATE 5MG TABLET PO PRN (21:31)
[2018-07-23] MEDS: INSULIN GLARGINE UD 100 UNITS/ML SYR SUBCUT SCH (21:33)
[2018-07-24] VITALS: BP 114/66
[2018-07-24 04:00] VITALS: BP 122/58
[2018-07-24] MEDS ORDERED: ENOXAPARIN 120MG/0.8ML SYR SUBCUT SCH (06:00)
[2018-07-24] MEDS: METOCLOPRAMIDE HCL 10MG/2ML VIAL IV SCH ×3 (06:00→12:00)
[2018-07-24] MEDS: INSULIN LISPRO 100 UNITS/ML SUBCUT SCH ×4 (06:35→12:40)
[2018-07-24 07:29] LABS: BASOPHILS % 0.5 % (0.0-2.0); EOSINOPHILS % 3.3 % (0.0-5.0); HEMATOCRIT. 32.7 % (42.0-52.0); HEMOGLOBIN. 10.7 g/dL (14.0-18.0); LYMPHOCYTES % 32.3 % (20.0-50.0); MEAN CORPUSCULAR VOLUME 85.7 fL (80.0-94.0); MEAN PLATELET VOLUME 7.9 fl (7.4-10.4); MONOCYTES % 8.6 % (2.0-8.0); NEUTROPHILS % 55.3 % (40.0-76.0); PLATELET 324 x1000/uL (130-400); RED BLOOD CELL COUNT 3.81 mill/uL (4.7-6.1); RED CELL DISTRIBUTION WIDTH 15.7 % (11.6-14.6)
[2018-07-24 08:00] VITALS: BP 98/54
[2018-07-24] MEDS: CLOPIDOGREL 75MG TABLET PO SCH (08:29)
[2018-07-24] MEDS: SULFAMETHOXAZOLE/TRIMETHOPRIM 800/160MG TABLET PO SCH (08:29)
[2018-07-24] MEDS: GLIMEPIRIDE 2MG TABLET PO SCH (08:29)
[2018-07-24] MEDS: ASPIRIN 81MG EC TABLET PO SCH (08:29)
[2018-07-24] MEDS: METHIMAZOLE 5MG TABLET PO SCH (08:29)
[2018-07-24] MEDS: TAMSULOSIN HCL 0.4MG SR CAPSULE PO SCH (08:29)
[2018-07-24] MEDS: CARVEDILOL 6.25 MG TABLET PO SCH (08:30)
[2018-07-24] MEDS: FLUTICASONE/VILANTEROL 200-25 BLST.W.DEV ORI SCH (08:30)
[2018-07-24] MEDS: UMECLIDINIUM BROMIDE 1 INH BLST.W.DEV IH SCH (08:30)
[2018-07-24] MEDS ORDERED: FAMOTIDINE 20MG/2ML VIAL IV SCH (09:00)
[2018-07-24 09:25] LABS: PHOSPHORUS 4.6 mg/dL (2.5-4.9)
[2018-07-24 12:00] VITALS: BP 106/70
[2018-07-24] MEDS: BLOOD SUGAR DIAGNOSTIC STRIP TEST SCH (12:10)
[2018-07-24 13:38] VITALS: BP 106/70
== END 2018-07-24 15:30 | disposition home health service (06) | DRG 314 ==
LOC: 8WST 15:20
PROVIDERS: ADMIT Specialist; ATTEND Specialist
DX: I95.9 Hypotension, unspecified (principal); I26.99 Other pulmonary embolism without acute cor pulmonale; N17.9 Acute kidney failure, unspecified; N39.0 Urinary tract infection, site not specified; I82.431 Acute embolism and thrombosis of right popliteal vein; E66.2 Morbid (severe) obesity with alveolar hypoventilation; I42.9 Cardiomyopathy, unspecified; N13.8 Other obstructive and reflux uropathy; Z68.41 Body mass index [BMI] 40.0-44.9, adult; I13.0 Hypertensive heart and chronic kidney disease with heart failure and stage 1 through stage 4 chronic kidney disease, or unspecified chronic kidney disease; N45.3 Epididymo-orchitis; N50.89 Other specified disorders of the male genital organs; B35.9 Dermatophytosis, unspecified; B96.20 Unspecified Escherichia coli [E. coli] as the cause of diseases classified elsewhere; D64.9 Anemia, unspecified; E05.90 Thyrotoxicosis, unspecified without thyrotoxic crisis or storm; E11.22 Type 2 diabetes mellitus with diabetic chronic kidney disease; E11.43 Type 2 diabetes mellitus with diabetic autonomic (poly)neuropathy; E11.51 Type 2 diabetes mellitus with diabetic peripheral angiopathy without gangrene; E11.65 Type 2 diabetes mellitus with hyperglycemia; E78.5 Hyperlipidemia, unspecified; E87.5 Hyperkalemia; E88.81 Metabolic syndrome and other insulin resistance; I25.10 Atherosclerotic heart disease of native coronary artery without angina pectoris; I27.20 Pulmonary hypertension, unspecified; J44.9 Chronic obstructive pulmonary disease, unspecified; K21.9 Gastro-esophageal reflux disease without esophagitis; K31.84 Gastroparesis; K76.0 Fatty (change of) liver, not elsewhere classified; N18.3 Chronic kidney disease, stage 3 (moderate); N40.1 Benign prostatic hyperplasia with lower urinary tract symptoms; I50.9 Heart failure, unspecified; Z78.9 Other specified health status; Z79.01 Long term (current) use of anticoagulants; Z79.4 Long term (current) use of insulin; Z82.49 Family history of ischemic heart disease and other diseases of the circulatory system; Z83.3 Family history of diabetes mellitus; Z86.711 Personal history of pulmonary embolism; Z86.718 Personal history of other venous thrombosis and embolism; Z95.0 Presence of cardiac pacemaker; Z91.048 Other nonmedicinal substance allergy status; Z79.899 Other long term (current) drug therapy; Z79.82 Long term (current) use of aspirin
CPT/HCPCS: 36415; 71045; 76770; 76870; 78582; 80048; 80076; 82962; 83036; 83735; 83880; 84100; 84153; 84439; 84443; 84484; 87077; 87186; 87804; 93005; 93970; 93976; 96365; 99284; A9558; C9113; J0696; J1650; J1815; J1956; J2765; J3490; Q0162; G0103

== ENCOUNTER 2018-09-22 18:52 | Inpatient (IN) | payer MEDICARE, OTHER ==
[~2018-09-22] VITALS: Ht 172.7 cm; Wt 129.7 kg
[2018-09-23 01:22] LABS: BASOPHILS % 0.6 % (0.0-2.0); EOSINOPHILS % 3.4 % (0.0-5.0); HEMATOCRIT. 33.1 % (42.0-52.0); HEMOGLOBIN. 11.1 g/dL (14.0-18.0); LYMPHOCYTES % 31.9 % (20.0-50.0); MEAN CORPUSCULAR HEMOGLOBIN 29.4 pg (28.0-32.0); MEAN CORPUSCULAR VOLUME 87.5 fL (80.0-94.0); MEAN PLATELET VOLUME 7.2 fl (7.4-10.4); MONOCYTES % 9.7 % (2.0-8.0); NEUTROPHILS % 54.4 % (40.0-76.0); PLATELET 300 x1000/uL (130-400); RED BLOOD CELL COUNT 3.78 mill/uL (4.7-6.1); RED CELL DISTRIBUTION WIDTH 15.9 % (11.6-14.6)
[2018-09-23 01:30] LABS: CHLORIDE 111 mEq/L (98-107)
[2018-09-23 01:34] LABS: ETHANOL BLOOD < 10 mg/dL
[2018-09-23] MEDS ORDERED: FUROSEMIDE 20MG/2ML VIAL IVP ONE (02:00)
[2018-09-23 06:32] LABS: CLARITY URINE CLOUDY (CLEAR); COLOR URINE YELLOW (YELLOW); KETONES URINE NEGATIVE (NEGATIVE); LEUKOCYTE ESTERASE URINE 3+ (NEGATIVE); NITRITE URINE POSITIVE (NEGATIVE); OCCULT BLOOD URINE 1+ (NEGATIVE); PROTEIN URINE NEGATIVE (NEGATIVE); SPECIFIC GRAVITY URINE 1.007 (1.005-1.030); UROBILINOGEN URINE 0.2 E.U./dL (0.2-1.0)
[2018-09-23 06:50] LABS: *AMPHETAMINES SCREEN URINE NEGATIVE (NEGATIVE); *BARBITURATES SCREEN URINE NEGATIVE (NEGATIVE); *BENZODIAZEPINES SCREEN URINE NEGATIVE (NEGATIVE); *COCAINE SCREEN URINE PRESUMTIVE POSITIVE (NEGATIVE); METHADONE URINE SCREEN NEGATIVE (NEGATIVE); OPIATES URINE SCREEN NEGATIVE (NEGATIVE)
[2018-09-23 06:51] LABS: CANNABINOID URINE SCREEN NEGATIVE (NEGATIVE); PHENCYCLIDINE URINE SCREEN NEGATIVE (NEGATIVE)
[2018-09-23] MEDS ORDERED: GUAIFENESIN 200MG/10ML SUGAR FREE UDC PO PRN (08:00)
[2018-09-23] MEDS ORDERED: ACETAMINOPHEN 650MG/20.3ML UDC GT PRN (08:00)
[2018-09-23] MEDS ORDERED: DEXTROSE 50% WATER 50ML SYRINGE IV PRN (08:00)
[2018-09-23] MEDS ORDERED: NA PHOS,M-B/NA PHOS,DI-BA ENEMA 118ML PR PRN (08:00)
[2018-09-23] MEDS ORDERED: HYDROCODONE/ACETAMINOPHEN 10/325MG TABLET PO PRN (08:00)
[2018-09-23] MEDS ORDERED: ENOXAPARIN 40MG/0.4ML SYR SUBCUT SCH (08:00)
[2018-09-23] MEDS ORDERED: ONDANSETRON HCL 4MG/2ML INJ IV PRN (08:00)
[2018-09-23] MEDS ORDERED: CLONIDINE 0.1MG TABLET PO PRN (08:00)
[2018-09-23] MEDS ORDERED: ACETAMINOPHEN 325MG TABLET PO PRN (08:00)
[2018-09-23] MEDS ORDERED: MAGNESIUM/ALUMINUM HYDROXIDE/SIMETHICONE 30ML UDC PO PRN (08:00)
[2018-09-23] MEDS ORDERED: DOCUSATE SODIUM 100MG CAPSULE PO PRN (08:00)
[2018-09-23] MEDS ORDERED: IPRATROPIUM/ALBUTEROL 0.5-3(2.5)MG/3ML NEB INH PRN (08:00)
[2018-09-23] MEDS ORDERED: ACETAMINOPHEN 650MG SUPP PR PRN (08:00)
[2018-09-23] MEDS: BLOOD SUGAR DIAGNOSTIC STRIP TEST SCH ×4 (08:34→22:08)
[2018-09-23] MEDS: HYDROCODONE/ACETAMINOPHEN 5/325MG TABLET PO PRN ×2 (08:36→19:16)
[2018-09-23 12:00] VITALS: BP 115/50
[2018-09-23] MEDS: ENOXAPARIN 40MG/0.4ML SYR SUBCUT SCH ×2 (12:31→22:07)
[2018-09-23 12:33] VITALS: BP 133/58
[2018-09-23] MEDS: INSULIN LISPRO 100 UNITS/ML SUBCUT SCH ×3 (13:58→22:45)
[2018-09-23] MEDS: SODIUM CHLORIDE 0.9% INJ 3ML FLUSH IVF SCH ×2 (14:00→22:08)
[2018-09-23] MEDS: CARVEDILOL 6.25 MG TABLET PO SCH ×2 (14:01→23:00)
[2018-09-23] MEDS: ASPIRIN 81MG TABLET PO SCH (14:01)
[2018-09-23] MEDS ORDERED: ZET10 MT (14:07)
[2018-09-23 16:00] VITALS: BP 132/73
[2018-09-23 16:39] LABS: CREATINE KINASE MB FRACTION 1.6 ng/mL (0.5-3.6)
[2018-09-23] MEDS: FUROSEMIDE 40MG/4ML VIAL IVP SCH (17:55)
[2018-09-23 20:00] VITALS: BP 109/40
[2018-09-24] VITALS: BP 98/45
[2018-09-24 00:37] LABS: CREATINE KINASE 149 IU/L (39-308)
[2018-09-24 00:39] LABS: CREATINE KINASE MB FRACTION 1.1 ng/mL (0.5-3.6)
[2018-09-24] MEDS: DIPHENHYDRAMINE 50MG/ML VIAL IV PRN (05:25)
[2018-09-24] MEDS: BLOOD SUGAR DIAGNOSTIC STRIP TEST SCH ×4 (06:45→20:30)
[2018-09-24] MEDS: SODIUM CHLORIDE 0.9% INJ 3ML FLUSH IVF SCH ×3 (06:46→21:10)
[2018-09-24 07:01] LABS: BASOPHILS % 0.5 % (0.0-2.0); HEMATOCRIT. 31.8 % (42.0-52.0); HEMOGLOBIN. 10.4 g/dL (14.0-18.0); LYMPHOCYTES % 32.5 % (20.0-50.0); MEAN CORPUSCULAR HEMOGLOBIN 28.9 pg (28.0-32.0); MEAN PLATELET VOLUME 7.5 fl (7.4-10.4); MONOCYTES % 11.2 % (2.0-8.0); NEUTROPHILS % 52.8 % (40.0-76.0); PLATELET 270 x1000/uL (130-400); RED BLOOD CELL COUNT 3.61 mill/uL (4.7-6.1)
[2018-09-24 07:37] LABS: CHLORIDE 110 mEq/L (98-107)
[2018-09-24 07:46] LABS: LDL CHOLESTEROL 126 mg/dL (5-100)
[2018-09-24 07:49] LABS: HDL CHOLESTEROL 30 mg/dL (40-59)
[2018-09-24 08:00] VITALS: BP 122/68
[2018-09-24] MEDS: FUROSEMIDE 40MG/4ML VIAL IVP SCH ×2 (09:11→17:16)
[2018-09-24] MEDS: ASPIRIN 81MG TABLET PO SCH (09:11)
[2018-09-24] MEDS: INSULIN LISPRO 100 UNITS/ML SUBCUT SCH ×4 (09:12→21:09)
[2018-09-24] MEDS: CARVEDILOL 6.25 MG TABLET PO SCH ×2 (09:13→21:10)
[2018-09-24] MEDS: ENOXAPARIN 40MG/0.4ML SYR SUBCUT SCH (09:14)
[2018-09-24] MEDS: HYDROCODONE/ACETAMINOPHEN 5/325MG TABLET PO PRN (09:44)
[2018-09-24 12:00] VITALS: BP 99/39
[2018-09-24] MEDS ORDERED: CEFTRIAXONE 1 G PREMIX 50 ML IV SCH (13:00)
[2018-09-24] MEDS ORDERED: MEDICATION NOT ON FORMULARY EA (Aspirin (Aspirin Low Dose) 81 TAB) PO SCH (13:00)
[2018-09-24] MEDS ORDERED: GLIMEPIRIDE 2MG TABLET PO SCH (13:00)
[2018-09-24] MEDS ORDERED: MEDICATION NOT ON FORMULARY EA (Atorvastatin Calcium (Lipitor) 1 TAB) PO SCH (13:00)
[2018-09-24] MEDS: EZETIMIBE 10MG TABLET PO SCH (14:20)
[2018-09-24] MEDS: CEFTRIAXONE 1,000 MG in DEXTROSE 5% WATER 50 ML IV SCH (14:21)
[2018-09-24 16:00] VITALS: BP 110/74
[2018-09-24] MEDS: GLYBURIDE 2.5MG TABLET PO SCH (18:03)
[2018-09-24 20:00] VITALS: BP 138/65
[2018-09-24] MEDS: ENOXAPARIN 30MG/0.3ML SYR SUBCUT SCH (21:10)
[2018-09-24] MEDS: ATORVASTATIN CALCIUM 40MG TABLET PO SCH (21:10)
[2018-09-25] VITALS: BP 127/62
[2018-09-25 04:00] VITALS: BP 129/64
[2018-09-25] MEDS: BLOOD SUGAR DIAGNOSTIC STRIP TEST SCH ×4 (06:32→21:21)
[2018-09-25] MEDS: SODIUM CHLORIDE 0.9% INJ 3ML FLUSH IVF SCH ×3 (06:32→21:31)
[2018-09-25 08:00] VITALS: BP 131/51
[2018-09-25] MEDS: ASPIRIN 81MG TABLET PO SCH (08:35)
[2018-09-25] MEDS: ENOXAPARIN 30MG/0.3ML SYR SUBCUT SCH ×2 (08:35→21:26)
[2018-09-25] MEDS: EZETIMIBE 10MG TABLET PO SCH (08:35)
[2018-09-25] MEDS: FUROSEMIDE 40MG/4ML VIAL IVP SCH ×2 (08:36→17:21)
[2018-09-25] MEDS: CARVEDILOL 6.25 MG TABLET PO SCH ×2 (08:36→21:26)
[2018-09-25] MEDS: GLYBURIDE 2.5MG TABLET PO SCH ×2 (08:36→17:34)
[2018-09-25] MEDS: INSULIN LISPRO 100 UNITS/ML SUBCUT SCH ×4 (08:42→21:31)
[2018-09-25] MEDS: UMECLIDINIUM BROMIDE 1 INH BLST.W.DEV IH SCH (09:45)
[2018-09-25] MEDS ORDERED: ALBUTEROL (0.083%) 2.5MG/3ML NEB HHN PRN (09:45)
[2018-09-25] MEDS: FLUTICASONE/VILANTEROL 200-25 BLST.W.DEV ORI SCH (09:45)
[2018-09-25 12:00] VITALS: BP 101/47
[2018-09-25] MEDS: CEFTRIAXONE 1,000 MG in DEXTROSE 5% WATER 50 ML IV SCH (14:03)
[2018-09-25 16:00] VITALS: BP 108/45
[2018-09-25 20:00] VITALS: BP 128/54
[2018-09-25] MEDS: ATORVASTATIN CALCIUM 40MG TABLET PO SCH (21:26)
[2018-09-26] VITALS: BP 116/55
[2018-09-26 04:00] VITALS: BP 100/49
[2018-09-26 05:50] LABS: BASOPHILS % 0.8 % (0.0-2.0); EOSINOPHILS % 4.2 % (0.0-5.0); HEMATOCRIT. 32.7 % (42.0-52.0); HEMOGLOBIN. 11.1 g/dL (14.0-18.0); LYMPHOCYTES % 33.6 % (20.0-50.0); MEAN CORPUSCULAR HEMOGLOBIN 29.4 pg (28.0-32.0); MEAN PLATELET VOLUME 7.4 fl (7.4-10.4); MONOCYTES % 9.6 % (2.0-8.0); NEUTROPHILS % 51.8 % (40.0-76.0); PLATELET 297 x1000/uL (130-400); RED BLOOD CELL COUNT 3.76 mill/uL (4.7-6.1); RED CELL DISTRIBUTION WIDTH 15.3 % (11.6-14.6)
[2018-09-26] MEDS: SODIUM CHLORIDE 0.9% INJ 3ML FLUSH IVF SCH ×2 (06:59→14:16)
[2018-09-26] MEDS: BLOOD SUGAR DIAGNOSTIC STRIP TEST SCH ×2 (06:59→12:39)
[2018-09-26 08:00] VITALS: BP 140/76
[2018-09-26] MEDS: GLYBURIDE 2.5MG TABLET PO SCH (08:12)
[2018-09-26] MEDS: FUROSEMIDE 40MG/4ML VIAL IVP SCH (08:13)
[2018-09-26] MEDS: EZETIMIBE 10MG TABLET PO SCH (08:13)
[2018-09-26] MEDS: ENOXAPARIN 30MG/0.3ML SYR SUBCUT SCH (08:13)
[2018-09-26] MEDS: CARVEDILOL 6.25 MG TABLET PO SCH (08:14)
[2018-09-26] MEDS: FLUTICASONE/VILANTEROL 200-25 BLST.W.DEV ORI SCH (08:14)
[2018-09-26] MEDS: DIPHENHYDRAMINE 50MG/ML VIAL IV PRN (08:14)
[2018-09-26] MEDS: ASPIRIN 81MG TABLET PO SCH (08:14)
[2018-09-26] MEDS: INSULIN LISPRO 100 UNITS/ML SUBCUT SCH ×2 (08:22→12:44)
[2018-09-26] MEDS: UMECLIDINIUM BROMIDE 1 INH BLST.W.DEV IH SCH (09:00)
[2018-09-26] MEDS ORDERED: UMECLIDINIUM BROMIDE 1 INH BLST.W.DEV IH SCH (09:00)
[2018-09-26 09:07] LABS: CHLORIDE 104 mEq/L (98-107)
[2018-09-26 12:00] VITALS: BP 108/47
[2018-09-26] MEDS: CEFTRIAXONE 1,000 MG in DEXTROSE 5% WATER 50 ML IV SCH (14:16)
[2018-09-26 14:18] VITALS: BP 117/57
== END 2018-09-26 16:55 | disposition home or self-care (01) | DRG 682 ==
LOC: ER 18:52 → 7WST 09-23 03:05 → EDBEDREQ 09-23 03:43 → EDBEDREQTM 09-23 03:43 → ENRESERV 09-23 07:07
PROVIDERS: ADMIT Family Medicine; ATTEND Family Medicine
PROC: 4B02XSZ Measurement of Cardiac Pacemaker, External Approach (ICD-10-PCS; principal; 2018-09-25)
DX: N17.9 Acute kidney failure, unspecified (principal); J96.01 Acute respiratory failure with hypoxia; I50.23 Acute on chronic systolic (congestive) heart failure; J44.1 Chronic obstructive pulmonary disease with (acute) exacerbation; E44.1 Mild protein-calorie malnutrition; Z68.41 Body mass index [BMI] 40.0-44.9, adult; I42.0 Dilated cardiomyopathy; I11.0 Hypertensive heart disease with heart failure; E78.5 Hyperlipidemia, unspecified; E66.9 Obesity, unspecified; E11.51 Type 2 diabetes mellitus with diabetic peripheral angiopathy without gangrene; E78.00 Pure hypercholesterolemia, unspecified; F17.200 Nicotine dependence, unspecified, uncomplicated; F41.9 Anxiety disorder, unspecified; G47.33 Obstructive sleep apnea (adult) (pediatric); H40.9 Unspecified glaucoma; I25.10 Atherosclerotic heart disease of native coronary artery without angina pectoris; M19.90 Unspecified osteoarthritis, unspecified site; F14.10 Cocaine abuse, uncomplicated; Z96.641 Presence of right artificial hip joint; Z96.659 Presence of unspecified artificial knee joint; Z79.4 Long term (current) use of insulin; Z91.14 Patient's other noncompliance with medication regimen; Z95.0 Presence of cardiac pacemaker
CPT/HCPCS: 36415; 71045; 73502; 80048; 80061; 80305; 80320; 82550; 82553; 82962; 83880; 84484; 87077; 87186; 93005; 96374; 99285; J0696; J1200; J1650; J1815; J1940; J7050; J7060; G0480

== ENCOUNTER 2018-12-13 19:55 | Inpatient (IN) | payer MEDICARE, MEDICAID ==
[~2018-12-13] VITALS: Ht 175.3 cm; Wt 131.5 kg
[2018-12-13 19:55] VITALS: BP 136/60
[~2018-12-13 19:55] MED LIST changes: +APIX2.5T PO; -ATOR80TA PO; -CETI10CA8 PO; -CLOP75TA33 PO; +DEXL60CA3 PO; +DOCU-150 MT; +EZET10TA26 PO; -GLYB2.5T4 PO; +INSNOV SUBCUT; -INSU3INS6 SUBCUT; +LIRA0.6P2 SQ; -METO-293 PO; +NEPA1.7D BOTHEYE; -OLOP2.5D OP; -OMEP20TA2 PO; -PENT400T11 PO; +POTA10CA42 MT; -POTA20PA15 PO; +TAMS0.4C31 PO; +TAP5 PO; -TRAM50TA3 PO; -TRAV5DRO4 OP; -UMEC62.5 INH; -ZET10 PO
[2018-12-13 20:00] VITALS: BP 136/60
[2018-12-13] MEDS ORDERED: DIPHENHYDRAMINE 50MG/ML VIAL IV PRN (22:15)
[2018-12-13] MEDS ORDERED: ACETAMINOPHEN 650MG SUPP PR PRN (22:15)
[2018-12-13] MEDS ORDERED: DOCUSATE SODIUM 100MG CAPSULE PO PRN (22:15)
[2018-12-13] MEDS ORDERED: CLONIDINE 0.1MG TABLET PO PRN (22:15)
[2018-12-13] MEDS ORDERED: INSULIN GLARGINE UD 100 UNITS/ML SYR SUBCUT SCH (22:15)
[2018-12-13] MEDS ORDERED: GUAIFENESIN 200MG/10ML SUGAR FREE UDC PO PRN (22:15)
[2018-12-13] MEDS ORDERED: IPRATROPIUM/ALBUTEROL 0.5-3(2.5)MG/3ML NEB HHN PRN (22:15)
[2018-12-13] MEDS ORDERED: DEXTROSE 50% WATER 50ML SYRINGE IV PRN (22:15)
[2018-12-13] MEDS ORDERED: ONDANSETRON HCL 4MG/2ML INJ IV PRN (22:15)
[2018-12-13] MEDS: GABAPENTIN 100MG CAPSULE PO SCH (23:04)
[2018-12-13] MEDS: BLOOD SUGAR DIAGNOSTIC STRIP TEST SCH (23:07)
[2018-12-13] MEDS: INSULIN LISPRO 100 UNITS/ML SUBCUT SCH (23:32)
[2018-12-14] MEDS: INSULIN GLARGINE UD 100 UNITS/ML SYR SUBCUT SCH ×3 (00:03→23:19)
[2018-12-14] MEDS: GABAPENTIN 100MG CAPSULE PO SCH ×3 (06:12→23:15)
[2018-12-14] MEDS: BLOOD SUGAR DIAGNOSTIC STRIP TEST SCH ×4 (06:14→21:00)
[2018-12-14] MEDS: INSULIN LISPRO 100 UNITS/ML SUBCUT SCH ×7 (06:30→20:41)
[2018-12-14] MEDS ORDERED: OMEPRAZOLE 20MG CAPSULE EXTENDED RELEASE PO SCH (07:00)
[2018-12-14 07:21] LABS: BASOPHILS % 0.7 % (0.0-2.0); EOSINOPHILS % 1.8 % (0.0-5.0); HEMATOCRIT. 25.7 % (42.0-52.0); HEMOGLOBIN. 8.6 g/dL (14.0-18.0); LYMPHOCYTES % 21.7 % (20.0-50.0); MEAN CORPUSCULAR HEMOGLOBIN 28.1 pg (28.0-32.0); MEAN CORPUSCULAR VOLUME 83.9 fL (80.0-94.0); MEAN PLATELET VOLUME 8.3 fl (7.4-10.4); MONOCYTES % 12.4 % (2.0-8.0); NEUTROPHILS % 63.4 % (40.0-76.0); PLATELET 358 x1000/uL (130-400); RED BLOOD CELL COUNT 3.06 mill/uL (4.7-6.1); RED CELL DISTRIBUTION WIDTH 15.5 % (11.6-14.6)
[2018-12-14 08:00] VITALS: BP 119/64
[2018-12-14 08:08] LABS: CHLORIDE 114 mEq/L (98-107)
[2018-12-14] MEDS: TAMSULOSIN HCL 0.4MG SR CAPSULE PO SCH (08:42)
[2018-12-14] MEDS: MIDODRINE HCL 5MG TABLET PO SCH ×3 (08:42→17:50)
[2018-12-14] MEDS: LEVOFLOXACIN 250MG TABLET PO SCH (10:26)
[2018-12-14] MEDS: METOCLOPRAMIDE HCL 5MG TABLET PO SCH ×3 (11:48→23:15)
[2018-12-14] MEDS: OMEPRAZOLE 20MG CAPSULE EXTENDED RELEASE PO SCH (17:44)
[2018-12-14] MEDS: ACETAMINOPHEN 325MG TABLET PO PRN (18:04)
[2018-12-14 20:00] VITALS: BP 142/62
[2018-12-15] MEDS: GABAPENTIN 100MG CAPSULE PO SCH ×3 (06:29→21:58)
[2018-12-15] MEDS: METOCLOPRAMIDE HCL 5MG TABLET PO SCH ×4 (06:29→23:08)
[2018-12-15] MEDS: BLOOD SUGAR DIAGNOSTIC STRIP TEST SCH ×4 (06:30→21:35)
[2018-12-15] MEDS: INSULIN LISPRO 100 UNITS/ML SUBCUT SCH ×7 (06:36→21:58)
[2018-12-15 08:00] VITALS: BP 131/70
[2018-12-15] MEDS: TAMSULOSIN HCL 0.4MG SR CAPSULE PO SCH (09:07)
[2018-12-15] MEDS: OMEPRAZOLE 20MG CAPSULE EXTENDED RELEASE PO SCH ×2 (09:07→17:00)
[2018-12-15] MEDS: MIDODRINE HCL 5MG TABLET PO SCH ×3 (09:07→17:00)
[2018-12-15] MEDS: LEVOFLOXACIN 250MG TABLET PO SCH (10:35)
[2018-12-15] MEDS: INSULIN GLARGINE UD 100 UNITS/ML SYR SUBCUT SCH ×2 (11:08→21:57)
[2018-12-15] MEDS ORDERED: BISACODYL 5MG TABLET PO PRN (13:15)
[2018-12-15 16:19] LABS: CLARITY URINE CLOUDY (CLEAR); COLOR URINE YELLOW (YELLOW); KETONES URINE NEGATIVE (NEGATIVE); LEUKOCYTE ESTERASE URINE 2+ (NEGATIVE); NITRITE URINE NEGATIVE (NEGATIVE); OCCULT BLOOD URINE 1+ (NEGATIVE); PH URINE 5.5 (4.5-8.0); PROTEIN URINE TRACE (NEGATIVE); SPECIFIC GRAVITY URINE 1.013 (1.005-1.030); UROBILINOGEN URINE 0.2 E.U./dL (0.2-1.0)
[2018-12-15 20:00] VITALS: BP 123/58
[2018-12-15] MEDS ORDERED: LACTULOSE 20G/30ML UDC PO PRN (21:00)
[2018-12-15 21:43] LABS: BASOPHILS % 0.6 % (0.0-2.0); EOSINOPHILS % 1.2 % (0.0-5.0); HEMATOCRIT. 24.5 % (42.0-52.0); HEMOGLOBIN. 8.3 g/dL (14.0-18.0); LYMPHOCYTES % 22.6 % (20.0-50.0); MEAN CORPUSCULAR HEMOGLOBIN 28.7 pg (28.0-32.0); MEAN CORPUSCULAR VOLUME 84.9 fL (80.0-94.0); MEAN PLATELET VOLUME 7.6 fl (7.4-10.4); MONOCYTES % 9.2 % (2.0-8.0); NEUTROPHILS % 66.4 % (40.0-76.0); PLATELET 346 x1000/uL (130-400); RED BLOOD CELL COUNT 2.89 mill/uL (4.7-6.1); RED CELL DISTRIBUTION WIDTH 15.8 % (11.6-14.6)
[2018-12-15 21:45] LABS: CHLORIDE 109 mEq/L (98-107)
[2018-12-16] MEDS: BLOOD SUGAR DIAGNOSTIC STRIP TEST SCH ×4 (06:38→21:08)
[2018-12-16] MEDS: GABAPENTIN 100MG CAPSULE PO SCH ×3 (06:38→21:08)
[2018-12-16] MEDS: METOCLOPRAMIDE HCL 5MG TABLET PO SCH ×4 (06:38→23:02)
[2018-12-16 06:45] LABS: BASOPHILS % 0.2 % (0.0-2.0); EOSINOPHILS % 1.2 % (0.0-5.0); LYMPHOCYTES % 23.4 % (20.0-50.0); MEAN CORPUSCULAR HEMOGLOBIN 28.1 pg (28.0-32.0); MEAN CORPUSCULAR VOLUME 84.3 fL (80.0-94.0); MEAN PLATELET VOLUME 7.8 fl (7.4-10.4); MONOCYTES % 8.3 % (2.0-8.0); NEUTROPHILS % 66.9 % (40.0-76.0); PLATELET 346 x1000/uL (130-400); RED BLOOD CELL COUNT 2.85 mill/uL (4.7-6.1); RED CELL DISTRIBUTION WIDTH 15.5 % (11.6-14.6)
[2018-12-16] MEDS: INSULIN LISPRO 100 UNITS/ML SUBCUT SCH ×6 (07:25→17:00)
[2018-12-16 08:42] VITALS: BP 131/73
[2018-12-16] MEDS: TAMSULOSIN HCL 0.4MG SR CAPSULE PO SCH (08:52)
[2018-12-16] MEDS: MIDODRINE HCL 5MG TABLET PO SCH ×3 (08:53→17:57)
[2018-12-16] MEDS: OMEPRAZOLE 20MG CAPSULE EXTENDED RELEASE PO SCH (08:53)
[2018-12-16] MEDS: LEVOFLOXACIN 250MG TABLET PO SCH (10:51)
[2018-12-16] MEDS: INSULIN GLARGINE UD 100 UNITS/ML SYR SUBCUT SCH ×2 (10:54→21:16)
[2018-12-16 13:00] VITALS: BP 127/69
[2018-12-16] MEDS: ACETAMINOPHEN 325MG TABLET PO PRN (14:24)
[2018-12-16] MEDS ORDERED: HYDROCODONE/ACETAMINOPHEN 5/325MG TABLET PO PRN (15:15)
[2018-12-16] MEDS ORDERED: INSULIN LISPRO 100 UNITS/ML SUBCUT NR (17:45)
[2018-12-16 20:00] VITALS: BP 138/75
[2018-12-16] MEDS: FAMOTIDINE 20MG TABLET PO SCH (21:08)
[2018-12-17] MEDS: GABAPENTIN 100MG CAPSULE PO SCH ×3 (05:34→21:30)
[2018-12-17] MEDS: METOCLOPRAMIDE HCL 5MG TABLET PO SCH ×4 (05:34→23:11)
[2018-12-17] MEDS: BLOOD SUGAR DIAGNOSTIC STRIP TEST SCH ×4 (06:42→21:29)
[2018-12-17] MEDS: INSULIN LISPRO 100 UNITS/ML SUBCUT SCH ×6 (06:46→16:38)
[2018-12-17] MEDS ORDERED: INSULIN LISPRO 100 UNITS/ML SUBCUT SCH (07:00)
[2018-12-17 07:27] LABS: BASOPHILS % 0.4 % (0.0-2.0); EOSINOPHILS % 1.2 % (0.0-5.0); HEMATOCRIT. 26.3 % (42.0-52.0); HEMOGLOBIN. 8.8 g/dL (14.0-18.0); LYMPHOCYTES % 22.4 % (20.0-50.0); MEAN CORPUSCULAR HEMOGLOBIN 28.7 pg (28.0-32.0); MEAN PLATELET VOLUME 7.9 fl (7.4-10.4); MONOCYTES % 8.4 % (2.0-8.0); NEUTROPHILS % 67.6 % (40.0-76.0); PLATELET 367 x1000/uL (130-400); RED BLOOD CELL COUNT 3.06 mill/uL (4.7-6.1); RED CELL DISTRIBUTION WIDTH 15.9 % (11.6-14.6)
[2018-12-17 07:39] LABS: T4 FREE 1.31 ng/dL (0.76-1.46)
[2018-12-17 08:13] VITALS: BP 125/69
[2018-12-17] MEDS: MIDODRINE HCL 5MG TABLET PO SCH ×3 (08:33→16:35)
[2018-12-17] MEDS: FAMOTIDINE 20MG TABLET PO SCH ×2 (08:33→21:29)
[2018-12-17] MEDS: TAMSULOSIN HCL 0.4MG SR CAPSULE PO SCH (08:33)
[2018-12-17] MEDS: LEVOFLOXACIN 250MG TABLET PO SCH (10:35)
[2018-12-17] MEDS: INSULIN GLARGINE UD 100 UNITS/ML SYR SUBCUT SCH ×2 (10:39→21:33)
[2018-12-17 15:47] LABS: CLARITY URINE CLEAR (CLEAR); COLOR URINE YELLOW (YELLOW); KETONES URINE NEGATIVE (NEGATIVE); LEUKOCYTE ESTERASE URINE 3+ (NEGATIVE); NITRITE URINE NEGATIVE (NEGATIVE); OCCULT BLOOD URINE TRACE (NEGATIVE); PH URINE 5.5 (4.5-8.0); PROTEIN URINE NEGATIVE (NEGATIVE); SPECIFIC GRAVITY URINE 1.008 (1.005-1.030); UROBILINOGEN URINE 0.2 E.U./dL (0.2-1.0)
[2018-12-17 20:00] VITALS: BP 136/68
[2018-12-17] MEDS: ACETAMINOPHEN 325MG TABLET PO PRN (21:30)
[2018-12-18] MEDS: GABAPENTIN 100MG CAPSULE PO SCH ×2 (05:19→13:15)
[2018-12-18] MEDS: METOCLOPRAMIDE HCL 5MG TABLET PO SCH ×2 (05:19→11:30)
[2018-12-18] MEDS: BLOOD SUGAR DIAGNOSTIC STRIP TEST SCH ×2 (06:11→12:07)
[2018-12-18] MEDS: INSULIN LISPRO 100 UNITS/ML SUBCUT SCH ×4 (06:11→13:26)
[2018-12-18 07:37] LABS: BASOPHILS % 0.7 % (0.0-2.0); EOSINOPHILS % 1.4 % (0.0-5.0); HEMOGLOBIN. 7.9 g/dL (14.0-18.0); LYMPHOCYTES % 26.8 % (20.0-50.0); MEAN CORPUSCULAR VOLUME 84.8 fL (80.0-94.0); MEAN PLATELET VOLUME 7.7 fl (7.4-10.4); MONOCYTES % 8.2 % (2.0-8.0); NEUTROPHILS % 62.9 % (40.0-76.0); PLATELET 324 x1000/uL (130-400); RED BLOOD CELL COUNT 2.71 mill/uL (4.7-6.1); RED CELL DISTRIBUTION WIDTH 15.5 % (11.6-14.6)
[2018-12-18 08:56] VITALS: BP 122/64
[2018-12-18] MEDS ORDERED: EZ-HD SUSPENSION(BARIUM SULFATE 340GM) PO ONE (09:22)
[2018-12-18] MEDS ORDERED: BARIUM SULFATE 176 GM SUSP.RECON ONE (09:23)
[2018-12-18] MEDS ORDERED: SIMETHICONE/SOD BICARB/CIT AC 1 EACH GRAN.EF.PK ONE (09:24)
[2018-12-18] MEDS: INSULIN GLARGINE UD 100 UNITS/ML SYR SUBCUT SCH (10:30)
[2018-12-18] MEDS: TAMSULOSIN HCL 0.4MG SR CAPSULE PO SCH (11:03)
[2018-12-18] MEDS: MIDODRINE HCL 5MG TABLET PO SCH ×2 (11:04→13:16)
[2018-12-18] MEDS: LEVOFLOXACIN 250MG TABLET PO SCH (11:05)
[2018-12-18] MEDS: FAMOTIDINE 20MG TABLET PO SCH (11:05)
[2018-12-18 16:00] VITALS: BP 122/71
== END 2018-12-18 17:15 | disposition home health service (06) | DRG 637 ==
PROVIDERS: ADMIT Psychiatry & Neurology Neurology; ATTEND Family Medicine
DX: E10.10 Type 1 diabetes mellitus with ketoacidosis without coma (principal); A41.9 Sepsis, unspecified organism; N17.9 Acute kidney failure, unspecified; I13.0 Hypertensive heart and chronic kidney disease with heart failure and stage 1 through stage 4 chronic kidney disease, or unspecified chronic kidney disease; I42.9 Cardiomyopathy, unspecified; I82.511 Chronic embolism and thrombosis of right femoral vein; E46 Unspecified protein-calorie malnutrition; I82.531 Chronic embolism and thrombosis of right popliteal vein; N39.0 Urinary tract infection, site not specified; Z68.41 Body mass index [BMI] 40.0-44.9, adult; R53.81 Other malaise; G89.4 Chronic pain syndrome; N18.3 Chronic kidney disease, stage 3 (moderate); E87.5 Hyperkalemia; E83.39 Other disorders of phosphorus metabolism; I50.9 Heart failure, unspecified; E78.5 Hyperlipidemia, unspecified; E10.22 Type 1 diabetes mellitus with diabetic chronic kidney disease; E10.51 Type 1 diabetes mellitus with diabetic peripheral angiopathy without gangrene; I27.22 Pulmonary hypertension due to left heart disease; J44.9 Chronic obstructive pulmonary disease, unspecified; F14.10 Cocaine abuse, uncomplicated; D63.8 Anemia in other chronic diseases classified elsewhere; F10.10 Alcohol abuse, uncomplicated; Y90.9 Presence of alcohol in blood, level not specified; I25.10 Atherosclerotic heart disease of native coronary artery without angina pectoris; K21.9 Gastro-esophageal reflux disease without esophagitis; F41.9 Anxiety disorder, unspecified; M19.90 Unspecified osteoarthritis, unspecified site; M79.604 Pain in right leg; M54.5 Low back pain; B96.20 Unspecified Escherichia coli [E. coli] as the cause of diseases classified elsewhere; E10.43 Type 1 diabetes mellitus with diabetic autonomic (poly)neuropathy; K31.84 Gastroparesis; Z96.653 Presence of artificial knee joint, bilateral; I95.9 Hypotension, unspecified; E66.01 Morbid (severe) obesity due to excess calories; E78.00 Pure hypercholesterolemia, unspecified; G47.33 Obstructive sleep apnea (adult) (pediatric); K22.8 Other specified diseases of esophagus; K76.0 Fatty (change of) liver, not elsewhere classified; M51.9 Unspecified thoracic, thoracolumbar and lumbosacral intervertebral disc disorder; N40.1 Benign prostatic hyperplasia with lower urinary tract symptoms; R33.8 Other retention of urine; Z79.4 Long term (current) use of insulin; Z79.51 Long term (current) use of inhaled steroids; Z95.0 Presence of cardiac pacemaker; Z79.01 Long term (current) use of anticoagulants; Z91.048 Other nonmedicinal substance allergy status; Z79.899 Other long term (current) drug therapy; Z82.49 Family history of ischemic heart disease and other diseases of the circulatory system; Z82.1 Family history of blindness and visual loss; Z87.891 Personal history of nicotine dependence; Z91.81 History of falling; Z87.440 Personal history of urinary (tract) infections; Z83.3 Family history of diabetes mellitus
CPT/HCPCS: 36415; 72131; 74018; 74220; 80048; 82270; 82533; 82962; 84439; 84443; 97110; 97116; 97162; 97166; 97530; 97535; C1893; J1200; J1815; J7517; J8597

== ENCOUNTER 2019-10-08 12:15 | Inpatient (IN) | payer MEDICARE, MEDICAID ==
[~2019-10-08] VITALS: Ht 172.7 cm; Wt 134.7 kg
[~2019-10-08 12:15] MED LIST changes: -AMLO10TA4 PO; -ASPI-1159 PO; +ASPI-1497 PO; +FLUT15.844 BOTHNSTRLS; -FLUT15.88 BOTHNSTRLS; -GLIM2TAB2 PO; +GLIM2TAB30 PO; -INSNOV SUBCUT; -INSU100C11 SQ; -TAMS0.4C31 PO
[2019-10-08] MEDS ORDERED: ALBUTEROL (0.083%) 2.5MG/3ML NEB HHN STA (12:49)
[2019-10-08 13:08] LABS: BASOPHILS % 0.6 % (0.0-2.0); EOSINOPHILS % 7.3 % (0.0-5.0); HEMATOCRIT. 38.8 % (42.0-52.0); HEMOGLOBIN. 12.9 g/dL (14.0-18.0); LYMPHOCYTES % 37.1 % (20.0-50.0); MEAN CORPUSCULAR HEMOGLOBIN 30.8 pg (28.0-32.0); MEAN CORPUSCULAR VOLUME 92.6 fL (80.0-94.0); MEAN PLATELET VOLUME 7.4 fl (7.4-10.4); MONOCYTES % 7.6 % (2.0-8.0); NEUTROPHILS % 47.4 % (40.0-76.0); PLATELET 206 x1000/uL (130-400); RED BLOOD CELL COUNT 4.19 mill/uL (4.7-6.1); RED CELL DISTRIBUTION WIDTH 15.5 % (11.6-14.6)
[2019-10-08 13:14] LABS: CHLORIDE 113 mEq/L (98-107)
[2019-10-08] MEDS ORDERED: IPRATROPIUM/ALBUTEROL 0.5-3(2.5)MG/3ML NEB NEB PRN (14:15)
[2019-10-08] MEDS ORDERED: CARVEDILOL 6.25 MG TABLET PO SCH (14:15)
[2019-10-08] MEDS ORDERED: ACETAMINOPHEN 325MG TABLET PO PRN (14:15)
[2019-10-08] MEDS ORDERED: ONDANSETRON HCL 4MG/2ML INJ IV PRN (14:15)
[2019-10-08] MEDS ORDERED: CLONIDINE 0.1MG TABLET PO PRN (14:15)
[2019-10-08] MEDS ORDERED: MAGNESIUM/ALUMINUM HYDROXIDE/SIMETHICONE 30ML UDC PO PRN (14:15)
[2019-10-08] MEDS ORDERED: DOCUSATE SODIUM 100MG CAPSULE PO PRN (14:15)
[2019-10-08] MEDS ORDERED: GUAIFENESIN 200MG/10ML SUGAR FREE UDC PO PRN (14:15)
[2019-10-08] MEDS ORDERED: HYDROCODONE/ACETAMINOPHEN 5/325MG TABLET PO PRN (14:15)
[2019-10-08] MEDS: FUROSEMIDE 40MG TABLET PO SCH (15:27)
[2019-10-08 15:48] LABS: *BARBITURATES SCREEN URINE NEGATIVE (NEGATIVE); *BENZODIAZEPINES SCREEN URINE NEGATIVE (NEGATIVE); *COCAINE SCREEN URINE PRESUMTIVE POSITIVE (NEGATIVE)
[2019-10-08 15:49] LABS: *AMPHETAMINES SCREEN URINE NEGATIVE (NEGATIVE); CANNABINOID URINE SCREEN NEGATIVE (NEGATIVE); METHADONE URINE SCREEN NEGATIVE (NEGATIVE); OPIATES URINE SCREEN PRESUMTIVE POSITIVE (NEGATIVE); PHENCYCLIDINE URINE SCREEN NEGATIVE (NEGATIVE)
[2019-10-08] MEDS: MORPHINE SULFATE 2 MG/ML CPJ (NOT FOR IM USE) IV PRN (16:01)
[2019-10-08 16:20] VITALS: BP 136/65
[2019-10-08] MEDS ORDERED: DEXTROSE 50% WATER 50ML SYRINGE IV PRN (16:45)
[2019-10-08] MEDS ORDERED: BLOOD SUGAR DIAGNOSTIC STRIP TEST SCH (17:00)
[2019-10-08] MEDS ORDERED: APIXABAN 2.5 MG TABLET PO SCH (17:00)
[2019-10-08] MEDS: APIXABAN 5 MG TABLET PO SCH (17:05)
[2019-10-08] MEDS: CARVEDILOL 6.25 MG TABLET PO SCH (17:05)
[2019-10-08] MEDS: GLIMEPIRIDE 2MG TABLET PO SCH (17:05)
[2019-10-08] MEDS ORDERED: INSULIN LISPRO 100 UNITS/ML SUBCUT SCH (17:23)
[2019-10-08 20:00] VITALS: BP 127/52
[2019-10-08] MEDS: BLOOD SUGAR DIAGNOSTIC STRIP TEST SCH (21:00)
[2019-10-08] MEDS: INSULIN LISPRO 100 UNITS/ML SUBCUT SCH (21:00)
[2019-10-08] MEDS: AMLODIPINE 5MG TABLET PO SCH (21:35)
[2019-10-09 00:07] LABS: CREATINE KINASE MB FRACTION 1.4 ng/mL (0.5-3.6)
[2019-10-09] MEDS: MORPHINE SULFATE 2 MG/ML CPJ (NOT FOR IM USE) IV PRN ×2 (00:38→06:12)
[2019-10-09 04:00] VITALS: BP 140/62
[2019-10-09] MEDS: GLIMEPIRIDE 2MG TABLET PO SCH ×2 (06:11→17:16)
[2019-10-09 06:20] LABS: CHLORIDE 113 mEq/L (98-107)
[2019-10-09] MEDS: INSULIN LISPRO 100 UNITS/ML SUBCUT SCH ×4 (06:20→21:00)
[2019-10-09] MEDS: BLOOD SUGAR DIAGNOSTIC STRIP TEST SCH ×4 (06:20→21:38)
[2019-10-09 06:21] LABS: BASOPHILS % 0.6 % (0.0-2.0); EOSINOPHILS % 9.7 % (0.0-5.0); HEMATOCRIT. 37.2 % (42.0-52.0); HEMOGLOBIN. 12.6 g/dL (14.0-18.0); LYMPHOCYTES % 45.2 % (20.0-50.0); MEAN CORPUSCULAR HEMOGLOBIN 31.1 pg (28.0-32.0); MEAN PLATELET VOLUME 7.9 fl (7.4-10.4); NEUTROPHILS % 39.5 % (40.0-76.0); PLATELET 221 x1000/uL (130-400); RED BLOOD CELL COUNT 4.04 mill/uL (4.7-6.1); RED CELL DISTRIBUTION WIDTH 15.5 % (11.6-14.6)
[2019-10-09 06:33] LABS: LDL CHOLESTEROL 102 mg/dL (5-100)
[2019-10-09 06:34] LABS: CREATINE KINASE 86 IU/L (39-308)
[2019-10-09 06:35] LABS: CREATINE KINASE MB FRACTION 1.1 ng/mL (0.5-3.6); HDL CHOLESTEROL 34 mg/dL (40-59)
[2019-10-09 06:36] LABS: T4 FREE 0.92 ng/dL (0.76-1.46)
[2019-10-09 08:00] VITALS: BP 122/80
[2019-10-09] MEDS: APIXABAN 5 MG TABLET PO SCH ×2 (08:32→17:16)
[2019-10-09] MEDS: FUROSEMIDE 40MG TABLET PO SCH (08:33)
[2019-10-09] MEDS: METHIMAZOLE 5MG TABLET PO SCH (08:33)
[2019-10-09] MEDS: AMLODIPINE 5MG TABLET PO SCH ×2 (08:33→21:37)
[2019-10-09] MEDS: CARVEDILOL 6.25 MG TABLET PO SCH ×2 (08:33→17:16)
[2019-10-09] MEDS ORDERED: KETOROLAC 15MG/ML VIAL IV PRN (10:15)
[2019-10-09] MEDS ORDERED: MEDICATION NOT ON FORMULARY EA (Dexlansoprazole (Dexilant) 1 CAP) PO SCH (10:45)
[2019-10-09] MEDS: PANTOPRAZOLE 40MG DR TABLET PO SCH (11:57)
[2019-10-09 12:00] VITALS: BP 117/60
[2019-10-09 16:00] VITALS: BP 120/71
[2019-10-09] MEDS: FUROSEMIDE 40MG/4ML VIAL IVP SCH (17:16)
[2019-10-09 20:00] VITALS: BP 140/75
[2019-10-10] VITALS: BP 108/65
[2019-10-10 04:00] VITALS: BP 112/64
[2019-10-10] MEDS: MORPHINE SULFATE 2 MG/ML CPJ (NOT FOR IM USE) IV PRN (05:15)
[2019-10-10] MEDS: BLOOD SUGAR DIAGNOSTIC STRIP TEST SCH ×2 (06:45→11:49)
[2019-10-10] MEDS: INSULIN LISPRO 100 UNITS/ML SUBCUT SCH ×2 (07:15→11:49)
[2019-10-10] MEDS: PANTOPRAZOLE 40MG DR TABLET PO SCH (07:54)
[2019-10-10] MEDS: GLIMEPIRIDE 2MG TABLET PO SCH (07:55)
[2019-10-10] MEDS: FUROSEMIDE 40MG/4ML VIAL IVP SCH (07:56)
[2019-10-10 08:00] VITALS: BP 119/62
[2019-10-10] MEDS: METHIMAZOLE 5MG TABLET PO SCH (08:56)
[2019-10-10] MEDS: APIXABAN 5 MG TABLET PO SCH (08:56)
[2019-10-10] MEDS: AMLODIPINE 5MG TABLET PO SCH (08:56)
[2019-10-10] MEDS: CARVEDILOL 6.25 MG TABLET PO SCH (08:56)
[2019-10-10] MEDS ORDERED: HYDR-3281 MT (11:19)
[2019-10-10 11:59] VITALS: BP 119/52
[2019-10-10 12:00] VITALS: BP 129/68
[2019-10-10] MEDS ORDERED: METOLAZONE 2.5MG TABLET PO SCH (17:00)
== END 2019-10-10 13:00 | disposition home or self-care (01) | DRG 205 ==
LOC: ER 12:15 → 5WST 14:04 → ENRESERV 15:31
PROVIDERS: ADMIT Hospitalist; ATTEND Hospitalist
DX: M94.0 Chondrocostal junction syndrome [Tietze] (principal); I50.33 Acute on chronic diastolic (congestive) heart failure; D68.59 Other primary thrombophilia; Z68.42 Body mass index [BMI] 45.0-49.9, adult; I13.0 Hypertensive heart and chronic kidney disease with heart failure and stage 1 through stage 4 chronic kidney disease, or unspecified chronic kidney disease; I42.0 Dilated cardiomyopathy; R07.89 Other chest pain; E87.5 Hyperkalemia; E11.22 Type 2 diabetes mellitus with diabetic chronic kidney disease; Z79.4 Long term (current) use of insulin; J44.9 Chronic obstructive pulmonary disease, unspecified; F14.10 Cocaine abuse, uncomplicated; N18.9 Chronic kidney disease, unspecified; D63.8 Anemia in other chronic diseases classified elsewhere; E66.09 Other obesity due to excess calories; E78.5 Hyperlipidemia, unspecified; F17.210 Nicotine dependence, cigarettes, uncomplicated; G47.33 Obstructive sleep apnea (adult) (pediatric); I27.20 Pulmonary hypertension, unspecified; I50.9 Heart failure, unspecified; Z79.01 Long term (current) use of anticoagulants; Z86.718 Personal history of other venous thrombosis and embolism; Z95.0 Presence of cardiac pacemaker; Z96.649 Presence of unspecified artificial hip joint; Z96.651 Presence of right artificial knee joint; I49.5 Sick sinus syndrome
CPT/HCPCS: 36415; 71045; 80053; 80061; 80305; 82550; 82553; 82962; 83880; 84439; 84443; 84484; 85025; 93005; 93306; 93970; 94640; 99285; J1815; J1940; J2270

== ENCOUNTER 2019-10-10 13:21 | Emergency (ER) | payer MEDICARE, MEDICAID ==
[~2019-10-10] VITALS: Ht 172.7 cm; Wt 150.0 kg
[~2019-10-10 13:21] MED LIST changes: +HYDR-3281 MT
[2019-10-10] MEDS ORDERED: METHOCARBAMOL 750MG TABLET PO STA (14:31)
[2019-10-10] MEDS ORDERED: KETOROLAC 60MG/2ML VIAL IM ONE (14:45)
[2019-10-10 16:24] VITALS: BP 126/87
== END 2019-10-10 16:29 | disposition home or self-care (01) ==
LOC: ER 13:21
DX: R07.81 Pleurodynia (principal); I11.0 Hypertensive heart disease with heart failure; I50.9 Heart failure, unspecified; E11.9 Type 2 diabetes mellitus without complications; J44.9 Chronic obstructive pulmonary disease, unspecified; F14.10 Cocaine abuse, uncomplicated; Z98.61 Coronary angioplasty status; Z95.0 Presence of cardiac pacemaker; Z96.649 Presence of unspecified artificial hip joint; Z96.659 Presence of unspecified artificial knee joint; Z79.82 Long term (current) use of aspirin; Z88.8 Allergy status to other drugs, medicaments and biological substances; Z91.09 Other allergy status, other than to drugs and biological substances
CPT/HCPCS: 71101; 96372; 99283; J1885

== ENCOUNTER 2020-01-08 10:43 | Emergency (ER) | payer MEDICARE, MEDICAID ==
[~2020-01-08] VITALS: Ht 172.7 cm; Wt 131.0 kg
[2020-01-08] MEDS ORDERED: MORPHINE SULFATE 10 MG/ML CPJ IV ONE (11:30)
[2020-01-08] MEDS ORDERED: ONDANSETRON 4MG ODT PO ONE (11:30)
[2020-01-08 11:39] VITALS: BP 126/80
[2020-01-08] MEDS ORDERED: HYDROCODONE/ACETAMINOPHEN 5/325MG TABLET PO ONE (13:15)
== END 2020-01-08 15:33 | disposition home or self-care (01) ==
LOC: ER 10:43
DX: M54.42 Lumbago with sciatica, left side (principal); M25.562 Pain in left knee; M25.552 Pain in left hip; I11.0 Hypertensive heart disease with heart failure; I50.9 Heart failure, unspecified; J44.9 Chronic obstructive pulmonary disease, unspecified; E11.9 Type 2 diabetes mellitus without complications; M25.511 Pain in right shoulder; Z96.649 Presence of unspecified artificial hip joint; Z96.659 Presence of unspecified artificial knee joint; Z95.0 Presence of cardiac pacemaker; Z98.890 Other specified postprocedural states; Z79.899 Other long term (current) drug therapy
CPT/HCPCS: 93971; 96374; 99284; J2270; Q0162

== ENCOUNTER 2020-01-26 17:29 | Inpatient (IN) | payer MEDICARE, MEDICAID ==
[~2020-01-26] VITALS: Ht 172.7 cm; Wt 125.2 kg
[2020-01-26] MEDS ORDERED: MORPHINE SULFATE 4 MG/ML CPJ (NOT FOR IM USE) IV ONE (18:45)
[2020-01-26 18:56] LABS: BASOPHILS % 0.9 % (0.0-2.0); EOSINOPHILS % 4.9 % (0.0-5.0); HEMATOCRIT. 39.7 % (42.0-52.0); HEMOGLOBIN. 13.6 g/dL (14.0-18.0); LYMPHOCYTES % 38.1 % (20.0-50.0); MEAN CORPUSCULAR HEMOGLOBIN 32.5 pg (28.0-32.0); MEAN CORPUSCULAR VOLUME 94.9 fL (80.0-94.0); MEAN PLATELET VOLUME 7.5 fl (7.4-10.4); MONOCYTES % 9.2 % (2.0-8.0); NEUTROPHILS % 46.9 % (40.0-76.0); PLATELET 234 x1000/uL (130-400); RED BLOOD CELL COUNT 4.18 mill/uL (4.7-6.1); RED CELL DISTRIBUTION WIDTH 14.6 % (11.6-14.6)
[2020-01-26 19:00] LABS: CHLORIDE 113 mEq/L (98-107)
[2020-01-26] MEDS ORDERED: FUROSEMIDE 20MG/2ML VIAL IVP ONE (21:00)
[2020-01-26] MEDS ORDERED: NA PHOS,M-B/NA PHOS,DI-BA ENEMA 118ML PR PRN (22:30)
[2020-01-26] MEDS ORDERED: ACETAMINOPHEN 650MG/20.3ML UDC GT PRN ×2 (22:30)
[2020-01-26] MEDS ORDERED: ONDANSETRON HCL 4MG/2ML INJ IV PRN (22:30)
[2020-01-26] MEDS ORDERED: DOCUSATE SODIUM 100MG CAPSULE PO PRN (22:30)
[2020-01-26] MEDS ORDERED: ACETAMINOPHEN 325MG TABLET PO PRN (22:30)
[2020-01-26] MEDS ORDERED: ACETAMINOPHEN 650MG SUPP PR PRN ×2 (22:30)
[2020-01-26] MEDS ORDERED: CLONIDINE 0.1MG TABLET PO PRN (22:30)
[2020-01-26] MEDS ORDERED: MAGNESIUM/ALUMINUM HYDROXIDE/SIMETHICONE 30ML UDC PO PRN (22:30)
[2020-01-26] MEDS ORDERED: GUAIFENESIN 200MG/10ML SUGAR FREE UDC PO PRN (22:30)
[2020-01-26] MEDS ORDERED: DEXTROSE 50% WATER 50ML SYRINGE IV PRN (22:45)
[2020-01-26] MEDS ORDERED: ENOXAPARIN 30MG/0.3ML SYR SUBCUT SCH (23:15)
[2020-01-27] MEDS: BLOOD SUGAR DIAGNOSTIC STRIP TEST SCH ×4 (06:41→21:58)
[2020-01-27] MEDS: INSULIN LISPRO 100 UNITS/ML SUBCUT SCH ×4 (06:52→21:00)
[2020-01-27] MEDS: HYDROCODONE/ACETAMINOPHEN 5/325MG TABLET PO PRN ×4 (06:53→22:00)
[2020-01-27] MEDS: FUROSEMIDE 40MG/4ML VIAL IV SCH (09:00)
[2020-01-27 09:22] LABS: BASOPHILS % 0.5 % (0.0-2.0); EOSINOPHILS % 8.3 % (0.0-5.0); HEMATOCRIT. 39.3 % (42.0-52.0); HEMOGLOBIN. 13.2 g/dL (14.0-18.0); LYMPHOCYTES % 39.6 % (20.0-50.0); MEAN CORPUSCULAR HEMOGLOBIN 32.3 pg (28.0-32.0); MEAN CORPUSCULAR VOLUME 96.1 fL (80.0-94.0); MEAN PLATELET VOLUME 7.4 fl (7.4-10.4); NEUTROPHILS % 41.6 % (40.0-76.0); PLATELET 229 x1000/uL (130-400); RED BLOOD CELL COUNT 4.08 mill/uL (4.7-6.1); RED CELL DISTRIBUTION WIDTH 14.5 % (11.6-14.6)
[2020-01-27 09:29] LABS: CHLORIDE 113 mEq/L (98-107)
[2020-01-27] MEDS: ACETAMINOPHEN 325MG TABLET PO PRN (09:29)
[2020-01-27 09:36] LABS: LDL CHOLESTEROL 105 mg/dL (5-100)
[2020-01-27 09:37] LABS: HDL CHOLESTEROL 31 mg/dL (40-59)
[2020-01-27 09:38] LABS: CREATINE KINASE 141 IU/L (39-308)
[2020-01-27 09:41] LABS: CREATINE KINASE MB FRACTION 1.6 ng/mL (0.5-3.6)
[2020-01-27] MEDS: MORPHINE SULFATE 2 MG/ML CPJ (NOT FOR IM USE) IV PRN ×2 (10:00→20:36)
[2020-01-27] MEDS: PANTOPRAZOLE 40MG DR TABLET PO SCH (11:45)
[2020-01-27] MEDS: APIXABAN 2.5 MG TABLET PO SCH (17:00)
[2020-01-27 23:15] VITALS: BP 137/80
[2020-01-28] MEDS: MORPHINE SULFATE 2 MG/ML CPJ (NOT FOR IM USE) IV PRN ×3 (02:47→20:27)
[2020-01-28 04:00] VITALS: BP 100/73
[2020-01-28] MEDS: HYDROCODONE/ACETAMINOPHEN 5/325MG TABLET PO PRN (04:24)
[2020-01-28 04:38] LABS: METHADONE URINE SCREEN NEGATIVE (NEGATIVE); OPIATES URINE SCREEN PRESUMTIVE POSITIVE (NEGATIVE)
[2020-01-28 04:39] LABS: *AMPHETAMINES SCREEN URINE NEGATIVE (NEGATIVE); *BARBITURATES SCREEN URINE NEGATIVE (NEGATIVE); *BENZODIAZEPINES SCREEN URINE NEGATIVE (NEGATIVE); CANNABINOID URINE SCREEN NEGATIVE (NEGATIVE); PHENCYCLIDINE URINE SCREEN NEGATIVE (NEGATIVE)
[2020-01-28 04:40] LABS: *COCAINE SCREEN URINE PRESUMTIVE POSITIVE (NEGATIVE)
[2020-01-28] MEDS: BLOOD SUGAR DIAGNOSTIC STRIP TEST SCH ×4 (06:11→20:23)
[2020-01-28] MEDS: PANTOPRAZOLE 40MG DR TABLET PO SCH (06:16)
[2020-01-28] MEDS: INSULIN LISPRO 100 UNITS/ML SUBCUT SCH ×4 (06:19→20:29)
[2020-01-28 06:50] LABS: BASOPHILS % 0.5 % (0.0-2.0); EOSINOPHILS % 9.2 % (0.0-5.0); HEMATOCRIT. 36.4 % (42.0-52.0); HEMOGLOBIN. 12.4 g/dL (14.0-18.0); LYMPHOCYTES % 40.9 % (20.0-50.0); MEAN CORPUSCULAR HEMOGLOBIN 32.5 pg (28.0-32.0); MEAN CORPUSCULAR VOLUME 95.3 fL (80.0-94.0); MEAN PLATELET VOLUME 7.6 fl (7.4-10.4); NEUTROPHILS % 40.4 % (40.0-76.0); PLATELET 236 x1000/uL (130-400); RED BLOOD CELL COUNT 3.81 mill/uL (4.7-6.1); RED CELL DISTRIBUTION WIDTH 14.5 % (11.6-14.6)
[2020-01-28 08:00] VITALS: BP 111/47
[2020-01-28] MEDS ORDERED: PNEUMOCOCCAL 23-VAL P-SAC VAC 0.5 ML IM ONE (08:00)
[2020-01-28] MEDS: FUROSEMIDE 40MG/4ML VIAL IV SCH (10:15)
[2020-01-28] MEDS: AMLODIPINE 2.5MG TABLET PO SCH (10:15)
[2020-01-28] MEDS: APIXABAN 2.5 MG TABLET PO SCH ×2 (10:15→17:26)
[2020-01-28 11:59] VITALS: BP 115/70
[2020-01-28] MEDS ORDERED: SODIUM POLYSTYRENE SULFONATE 15 G/60 ML BOT PO NR (12:30)
[2020-01-28 16:00] VITALS: BP 114/55
[2020-01-28] MEDS: DIPHENHYDRAMINE 25MG CAPSULE PO PRN (17:26)
[2020-01-28] MEDS: ACETAMINOPHEN 325MG TABLET PO PRN (18:02)
[2020-01-28 20:00] VITALS: BP 101/51
[2020-01-29] VITALS: BP 133/55
[2020-01-29] MEDS: DIPHENHYDRAMINE 25MG CAPSULE PO PRN (00:12)
[2020-01-29 04:00] VITALS: BP 135/70
[2020-01-29] MEDS: MORPHINE SULFATE 2 MG/ML CPJ (NOT FOR IM USE) IV PRN ×2 (05:32→10:21)
[2020-01-29] MEDS: BLOOD SUGAR DIAGNOSTIC STRIP TEST SCH ×2 (06:11→12:01)
[2020-01-29] MEDS: INSULIN LISPRO 100 UNITS/ML SUBCUT SCH ×2 (06:12→12:06)
[2020-01-29] MEDS: PANTOPRAZOLE 40MG DR TABLET PO SCH (06:19)
[2020-01-29 06:30] LABS: BASOPHILS % 0.5 % (0.0-2.0); HEMATOCRIT. 37.8 % (42.0-52.0); HEMOGLOBIN. 12.6 g/dL (14.0-18.0); MEAN CORPUSCULAR HEMOGLOBIN 31.7 pg (28.0-32.0); MEAN CORPUSCULAR VOLUME 94.8 fL (80.0-94.0); MEAN PLATELET VOLUME 7.8 fl (7.4-10.4); MONOCYTES % 10.9 % (2.0-8.0); NEUTROPHILS % 35.6 % (40.0-76.0); PLATELET 253 x1000/uL (130-400); RED BLOOD CELL COUNT 3.99 mill/uL (4.7-6.1); RED CELL DISTRIBUTION WIDTH 14.1 % (11.6-14.6)
[2020-01-29 06:33] LABS: CHLORIDE 112 mEq/L (98-107); PROSTRATE SPECIFIC AG TOTAL 2.07 ng/mL (0.0-4.0)
[2020-01-29 07:56] VITALS: BP 140/68
[2020-01-29] MEDS: APIXABAN 2.5 MG TABLET PO SCH (09:12)
[2020-01-29] MEDS: AMLODIPINE 2.5MG TABLET PO SCH (09:12)
[2020-01-29] MEDS: FUROSEMIDE 40MG/4ML VIAL IV SCH (09:12)
[2020-01-29 12:00] VITALS: BP 134/70
[2020-01-29] MEDS ORDERED: SODIUM POLYSTYRENE SULFONATE 15 G/60 ML BOT PO SCH (12:00)
[2020-01-29 14:29] VITALS: BP_SYST 134; BP_SYST 141; BP_DIAS 70; BP_DIAS 82
== END 2020-01-29 16:30 | disposition home or self-care (01) | DRG 291 ==
LOC: ER 17:29 → MICUSO 22:25 → 8WST 01-27 23:14
PROVIDERS: ADMIT Family Medicine; ATTEND Family Medicine
DX: I13.0 Hypertensive heart and chronic kidney disease with heart failure and stage 1 through stage 4 chronic kidney disease, or unspecified chronic kidney disease (principal); I50.33 Acute on chronic diastolic (congestive) heart failure; N17.0 Acute kidney failure with tubular necrosis; D68.59 Other primary thrombophilia; J96.10 Chronic respiratory failure, unspecified whether with hypoxia or hypercapnia; Z68.41 Body mass index [BMI] 40.0-44.9, adult; J44.1 Chronic obstructive pulmonary disease with (acute) exacerbation; E11.22 Type 2 diabetes mellitus with diabetic chronic kidney disease; N18.9 Chronic kidney disease, unspecified; E11.21 Type 2 diabetes mellitus with diabetic nephropathy; E78.5 Hyperlipidemia, unspecified; E11.40 Type 2 diabetes mellitus with diabetic neuropathy, unspecified; I25.10 Atherosclerotic heart disease of native coronary artery without angina pectoris; I27.20 Pulmonary hypertension, unspecified; M51.16 Intervertebral disc disorders with radiculopathy, lumbar region; M47.816 Spondylosis without myelopathy or radiculopathy, lumbar region; E66.01 Morbid (severe) obesity due to excess calories; E87.5 Hyperkalemia; I49.5 Sick sinus syndrome; E11.51 Type 2 diabetes mellitus with diabetic peripheral angiopathy without gangrene; Z82.49 Family history of ischemic heart disease and other diseases of the circulatory system; Z79.4 Long term (current) use of insulin; Z86.718 Personal history of other venous thrombosis and embolism; Z95.0 Presence of cardiac pacemaker; Z79.899 Other long term (current) drug therapy; Z79.82 Long term (current) use of aspirin; F14.90 Cocaine use, unspecified, uncomplicated
CPT/HCPCS: 36415; 71045; 72131; 76770; 78580; 80048; 80053; 80061; 80305; 82550; 82553; 82607; 82962; 83036; 83880; 84153; 84484; 85025; 90732; 93005; 93306; 93971; 96374; 99285; J1650; J1815; J1940; J2270; Q0163; G0103

== ENCOUNTER 2020-07-29 13:09 | Emergency (ER) | payer MEDICARE, MEDICAID ==
[~2020-07-29] VITALS: Ht 172.7 cm; Wt 129.0 kg
[~2020-07-29 13:09] MED LIST changes: -NEPA1.7D BOTHEYE; -POTA10CA42 MT
[2020-07-29] MEDS ORDERED: SILVER SULFADIAZINE 1% CREAM 25GM TOP ONE (13:30)
[2020-07-29] MEDS ORDERED: ACETAMINOPHEN 500MG TABLET PO ONE (13:45)
[2020-07-29] MEDS ORDERED: TETANUS, DIPHTHERIA, PERTUSSIS VAC/PF 0.5ML (>7YR OLD) IM ONE (14:15)
[2020-07-29 14:36] VITALS: BP 158/73
== END 2020-07-29 14:37 | disposition home or self-care (01) ==
LOC: ER 13:15
DX: T23.022A Burn of unspecified degree of single left finger (nail) except thumb, initial encounter (principal); T79.8XXA Other early complications of trauma, initial encounter; X19.XXXA Contact with other heat and hot substances, initial encounter; Y93.89 Activity, other specified; Y92.89 Other specified places as the place of occurrence of the external cause; Y99.8 Other external cause status; I11.0 Hypertensive heart disease with heart failure; I50.9 Heart failure, unspecified; J44.9 Chronic obstructive pulmonary disease, unspecified; Z95.0 Presence of cardiac pacemaker; F14.10 Cocaine abuse, uncomplicated; E11.9 Type 2 diabetes mellitus without complications; Z79.82 Long term (current) use of aspirin; Z79.899 Other long term (current) drug therapy
CPT/HCPCS: 16020; 90471; 90715; 99284

== ENCOUNTER 2020-09-04 10:27 | Inpatient (IN) | payer MEDICARE, MEDICAID ==
[~2020-09-04] VITALS: Ht 154.3 cm; Wt 123.4 kg
[~2020-09-04 10:27] MED LIST changes: -HYDR-3281 MT; +HYDR-4346 MT; +LIDOCAINE HCL/PF 1% 2ML VIAL ONE
[2020-09-04] MEDS ORDERED: INSULIN REGULAR (HUMULIN R) 300UNITS/3ML VIAL IV ONE (11:15)
[2020-09-04 11:31] LABS: BASOPHILS % 0.6 % (0.0-2.0); EOSINOPHILS % 3.1 % (0.0-5.0); HEMATOCRIT. 42.4 % (42.0-52.0); LYMPHOCYTES % 23.8 % (20.0-50.0); MEAN CORPUSCULAR HEMOGLOBIN 30.9 pg (28.0-32.0); MEAN CORPUSCULAR VOLUME 93.2 fL (80.0-94.0); MEAN PLATELET VOLUME 8.9 fl (7.4-10.4); MONOCYTES % 8.5 % (2.0-8.0); PLATELET 213 x1000/uL (130-400); RED BLOOD CELL COUNT 4.55 mill/uL (4.7-6.1); RED CELL DISTRIBUTION WIDTH 13.9 % (11.6-14.6)
[2020-09-04 11:39] LABS: PROTHROMBIN TIME 10.6 sec (9.6-11.0)
[2020-09-04 11:45] LABS: BG BASE EXCESS -7.5 mmol/L (-2.0-2.0); BG CARBOXYHEMOGLOBIN 0.4 % (0.5-1.5); BG FRACTION INSPIRED OXYGEN 21; BG HCO3 ACT 18.2 mmol/L (22.0-26.0); BG METHEMOGLOBIN 0.1 % (0.0-1.5); BG OXYHEMOGLOBIN 90.5 % (94.0-97.0); BG PCO2 37.5 mmHg (35.0-45.0); BG PH 7.303 (7.350-7.450); BG PO2 63.3 mmHg (75.0-100.0); BG SAMPLE SITE LEFT RADIAL; BG TOTAL HEMOGLOBIN 13.9 g/dL (12.0-18.0); BG VENT MODE ROOM AIR
[2020-09-04 11:46] LABS: CHLORIDE 98 mEq/L (98-107)
[2020-09-04 11:50] LABS: ETHANOL BLOOD < 10 mg/dL
[2020-09-04 11:52] LABS: BETA HYDROXYBUTYRATE 0.3 mMol/L (0.0-0.3)
[2020-09-04 12:45] LABS: CLARITY URINE CLOUDY (CLEAR); COLOR URINE YELLOW (YELLOW); KETONES URINE TRACE (NEGATIVE); LEUKOCYTE ESTERASE URINE 2+ (NEGATIVE); NITRITE URINE NEGATIVE (NEGATIVE); OCCULT BLOOD URINE NEGATIVE (NEGATIVE); PROTEIN URINE TRACE (NEGATIVE); SPECIFIC GRAVITY URINE 1.023 (1.005-1.030); UROBILINOGEN URINE 0.2 E.U./dL (0.2-1.0)
[2020-09-04 13:10] LABS: *AMPHETAMINES SCREEN URINE NEGATIVE (NEGATIVE); *BARBITURATES SCREEN URINE NEGATIVE (NEGATIVE); *BENZODIAZEPINES SCREEN URINE NEGATIVE (NEGATIVE); *COCAINE SCREEN URINE PRESUMTIVE POSITIVE (NEGATIVE); METHADONE URINE SCREEN NEGATIVE (NEGATIVE); OPIATES URINE SCREEN NEGATIVE (NEGATIVE)
[2020-09-04 13:11] LABS: CANNABINOID URINE SCREEN NEGATIVE (NEGATIVE); PHENCYCLIDINE URINE SCREEN NEGATIVE (NEGATIVE)
[2020-09-04] MEDS ORDERED: DOCUSATE SODIUM 100MG CAPSULE PO PRN (13:30)
[2020-09-04] MEDS ORDERED: MAGNESIUM/ALUMINUM HYDROXIDE/SIMETHICONE 30ML UDC PO PRN (13:30)
[2020-09-04] MEDS ORDERED: CLONIDINE 0.1MG TABLET PO PRN (13:30)
[2020-09-04] MEDS ORDERED: IPRATROPIUM/ALBUTEROL 0.5-3(2.5)MG/3ML NEB HHN PRN (13:30)
[2020-09-04] MEDS ORDERED: GUAIFENESIN 200MG/10ML SUGAR FREE UDC PO PRN (13:30)
[2020-09-04] MEDS ORDERED: ONDANSETRON HCL 4MG/2ML INJ IV PRN (13:30)
[2020-09-04] MEDS ORDERED: SODIUM CHLORIDE 0.9% 1,000 ML IV SCH (14:00)
[2020-09-04] MEDS ORDERED: DEXTROSE 50% WATER 50ML SYRINGE IV PRN ×3 (14:45→20:30)
[2020-09-04] MEDS: CEFTRIAXONE 1 G PREMIX 50 ML IV SCH ×2 (15:07→15:15)
[2020-09-04] MEDS: EZETIMIBE 10MG TABLET PO SCH (15:36)
[2020-09-04] MEDS: FOLIC ACID 1MG TABLET PO SCH (15:36)
[2020-09-04 15:50] VITALS: BP 110/55
[2020-09-04] MEDS ORDERED: INSULIN GLARGINE UD 100 UNITS/ML SYR SUBCUT SCH ×2 (16:00→22:00)
[2020-09-04] MEDS ORDERED: OMEPRAZOLE 20MG CAPSULE EXTENDED RELEASE PO SCH (16:30)
[2020-09-04] MEDS ORDERED: BLOOD SUGAR DIAGNOSTIC STRIP TEST SCH ×2 (17:00)
[2020-09-04] MEDS ORDERED: INSULIN LISPRO 100 UNITS/ML SUBCUT SCH ×2 (17:40)
[2020-09-04] MEDS ORDERED: SODIUM POLYSTYRENE SULFONATE 15 G/60 ML BOT PO NR ×2 (18:00→21:00)
[2020-09-04] MEDS: SODIUM CHLORIDE 0.9% 1,000 ML IV SCH (18:47)
[2020-09-04] MEDS: APIXABAN 2.5 MG TABLET PO SCH (18:47)
[2020-09-04 20:00] VITALS: BP 109/62
[2020-09-04] MEDS: DOCUSATE SODIUM 100MG CAPSULE PO SCH (21:00)
[2020-09-04] MEDS ORDERED: AMLODIPINE 2.5MG TABLET PO SCH (21:00)
[2020-09-04] MEDS ORDERED: INSULIN LISPRO 100 UNITS/ML SUBCUT NR (21:00)
[2020-09-04] MEDS: CARVEDILOL 6.25 MG TABLET PO SCH (21:00)
[2020-09-04] MEDS ORDERED: SACUBITRIL/VALSARTAN 49MG/51MG TABLET PO SCH (21:00)
[2020-09-04] MEDS: BLOOD SUGAR DIAGNOSTIC STRIP TEST SCH (21:11)
[2020-09-04] MEDS: FAMOTIDINE 20MG TABLET PO SCH (21:58)
[2020-09-04] MEDS: INSULIN GLARGINE UD 100 UNITS/ML SYR SUBCUT SCH (22:13)
[2020-09-05] VITALS: BP 139/97
[2020-09-05] MEDS: SODIUM CHLORIDE 0.9% 1,000 ML IV SCH ×3 (00:29→18:27)
[2020-09-05] MEDS: ACETAMINOPHEN 325MG TABLET PO PRN (03:16)
[2020-09-05 04:00] VITALS: BP 128/86
[2020-09-05] MEDS: BLOOD SUGAR DIAGNOSTIC STRIP TEST SCH ×4 (06:35→21:00)
[2020-09-05] MEDS: INSULIN LISPRO 100 UNITS/ML SUBCUT SCH ×7 (06:48→21:00)
[2020-09-05] MEDS ORDERED: INSULIN LISPRO (LOW DOSE) 100 UNITS/ML SUBCUT SCH (07:10)
[2020-09-05] MEDS ORDERED: BLOOD SUGAR DIAGNOSTIC STRIP TEST SCH (07:10)
[2020-09-05] MEDS ORDERED: INSULIN LISPRO 100 UNITS/ML SUBCUT SCH (07:10)
[2020-09-05 08:00] VITALS: BP 117/56
[2020-09-05 08:46] LABS: BASOPHILS % 0.5 % (0.0-2.0); EOSINOPHILS % 5.4 % (0.0-5.0); HEMATOCRIT. 38.6 % (42.0-52.0); LYMPHOCYTES % 35.2 % (20.0-50.0); MEAN CORPUSCULAR HEMOGLOBIN 31.2 pg (28.0-32.0); MEAN CORPUSCULAR VOLUME 92.9 fL (80.0-94.0); MEAN PLATELET VOLUME 9.4 fl (7.4-10.4); MONOCYTES % 8.6 % (2.0-8.0); NEUTROPHILS % 50.3 % (40.0-76.0); PLATELET 208 x1000/uL (130-400); RED BLOOD CELL COUNT 4.15 mill/uL (4.7-6.1); RED CELL DISTRIBUTION WIDTH 14.3 % (11.6-14.6)
[2020-09-05] MEDS ORDERED: FUROSEMIDE 40MG TABLET PO SCH (09:00)
[2020-09-05 09:04] LABS: CHLORIDE 106 mEq/L (98-107)
[2020-09-05 09:15] LABS: PHOSPHORUS 4.5 mg/dL (2.5-4.9)
[2020-09-05] MEDS ORDERED: INSULIN GLARGINE UD 100 UNITS/ML SYR SUBCUT SCH (10:00)
[2020-09-05] MEDS: APIXABAN 2.5 MG TABLET PO SCH ×2 (10:11→18:27)
[2020-09-05] MEDS: EZETIMIBE 10MG TABLET PO SCH (10:11)
[2020-09-05] MEDS: ASPIRIN 81MG EC TABLET PO SCH (10:11)
[2020-09-05] MEDS: FOLIC ACID 1MG TABLET PO SCH (10:11)
[2020-09-05] MEDS: CARVEDILOL 6.25 MG TABLET PO SCH ×2 (10:12→21:25)
[2020-09-05] MEDS: METHIMAZOLE 5MG TABLET PO SCH (10:12)
[2020-09-05] MEDS: CEFTRIAXONE 1,000 MG in DEXTROSE 5% WATER 50 ML IV SCH (10:13)
[2020-09-05] MEDS: GABAPENTIN 300MG CAPSULE PO SCH ×2 (13:37→21:24)
[2020-09-05 17:00] VITALS: BP 99/63
[2020-09-05 20:00] VITALS: BP 126/74
[2020-09-05] MEDS: FAMOTIDINE 20MG TABLET PO SCH (21:24)
[2020-09-05] MEDS: DOCUSATE SODIUM 100MG CAPSULE PO SCH (21:25)
[2020-09-05] MEDS: INSULIN GLARGINE UD 100 UNITS/ML SYR SUBCUT SCH (21:39)
[2020-09-06] VITALS (7 sets, daily range): BP systolic 104–166; BP diastolic 53–78
[2020-09-06] MEDS: ACETAMINOPHEN 325MG TABLET PO PRN (00:10)
[2020-09-06] MEDS: SODIUM CHLORIDE 0.9% 1,000 ML IV SCH (03:56)
[2020-09-06] MEDS: BLOOD SUGAR DIAGNOSTIC STRIP TEST SCH ×4 (05:04→21:41)
[2020-09-06] MEDS: GABAPENTIN 300MG CAPSULE PO SCH ×3 (05:35→21:40)
[2020-09-06 06:44] LABS: BASOPHILS % 0.4 % (0.0-2.0); EOSINOPHILS % 5.1 % (0.0-5.0); HEMATOCRIT. 35.6 % (42.0-52.0); MEAN CORPUSCULAR VOLUME 91.8 fL (80.0-94.0); MONOCYTES % 8.1 % (2.0-8.0); NEUTROPHILS % 36.4 % (40.0-76.0); PLATELET 198 x1000/uL (130-400); RED BLOOD CELL COUNT 3.88 mill/uL (4.7-6.1); RED CELL DISTRIBUTION WIDTH 14.1 % (11.6-14.6)
[2020-09-06] MEDS: EZETIMIBE 10MG TABLET PO SCH (09:35)
[2020-09-06] MEDS: FOLIC ACID 1MG TABLET PO SCH (09:35)
[2020-09-06] MEDS: CEFTRIAXONE 1,000 MG in DEXTROSE 5% WATER 50 ML IV SCH (09:35)
[2020-09-06] MEDS: APIXABAN 2.5 MG TABLET PO SCH ×2 (09:35→18:16)
[2020-09-06] MEDS: CARVEDILOL 6.25 MG TABLET PO SCH ×2 (09:36→21:40)
[2020-09-06] MEDS: METHIMAZOLE 5MG TABLET PO SCH (09:36)
[2020-09-06] MEDS: ASPIRIN 81MG EC TABLET PO SCH (09:36)
[2020-09-06] MEDS: INSULIN LISPRO 100 UNITS/ML SUBCUT SCH ×5 (12:00→21:46)
[2020-09-06] MEDS: DOCUSATE SODIUM 100MG CAPSULE PO SCH (21:40)
[2020-09-06] MEDS: FAMOTIDINE 20MG TABLET PO SCH (21:40)
[2020-09-06] MEDS: NEOMYCIN/BACITRACIN/POLYMYXIN OINT 14GM TOP SCH (21:44)
[2020-09-06] MEDS: INSULIN GLARGINE UD 100 UNITS/ML SYR SUBCUT SCH (21:46)
[2020-09-07] VITALS (7 sets, daily range): BP systolic 108–164; BP diastolic 57–86
[2020-09-07] MEDS: GABAPENTIN 300MG CAPSULE PO SCH ×3 (06:09→21:21)
[2020-09-07] MEDS: INSULIN LISPRO 100 UNITS/ML SUBCUT SCH ×7 (06:10→21:24)
[2020-09-07] MEDS: BLOOD SUGAR DIAGNOSTIC STRIP TEST SCH ×4 (06:12→21:25)
[2020-09-07 07:10] LABS: BASOPHILS % 0.5 % (0.0-2.0); EOSINOPHILS % 4.5 % (0.0-5.0); HEMATOCRIT. 37.4 % (42.0-52.0); HEMOGLOBIN. 12.4 g/dL (14.0-18.0); LYMPHOCYTES % 47.2 % (20.0-50.0); MEAN CORPUSCULAR HEMOGLOBIN 30.6 pg (28.0-32.0); MEAN CORPUSCULAR VOLUME 92.2 fL (80.0-94.0); MEAN PLATELET VOLUME 8.9 fl (7.4-10.4); MONOCYTES % 8.9 % (2.0-8.0); NEUTROPHILS % 38.9 % (40.0-76.0); PLATELET 201 x1000/uL (130-400); RED BLOOD CELL COUNT 4.06 mill/uL (4.7-6.1); RED CELL DISTRIBUTION WIDTH 14.3 % (11.6-14.6)
[2020-09-07 07:12] LABS: CHLORIDE 109 mEq/L (98-107)
[2020-09-07 07:28] LABS: PHOSPHORUS 3.5 mg/dL (2.5-4.9)
[2020-09-07] MEDS: EZETIMIBE 10MG TABLET PO SCH (09:24)
[2020-09-07] MEDS: METHIMAZOLE 5MG TABLET PO SCH (09:25)
[2020-09-07] MEDS: APIXABAN 2.5 MG TABLET PO SCH ×2 (09:25→17:42)
[2020-09-07] MEDS: FOLIC ACID 1MG TABLET PO SCH (09:25)
[2020-09-07] MEDS: ASPIRIN 81MG EC TABLET PO SCH (09:26)
[2020-09-07] MEDS: CARVEDILOL 6.25 MG TABLET PO SCH ×2 (09:26→21:23)
[2020-09-07] MEDS: NEOMYCIN/BACITRACIN/POLYMYXIN OINT 14GM TOP SCH ×2 (09:27→21:21)
[2020-09-07] MEDS: SODIUM CHLORIDE 0.9% 1,000 ML IV SCH (09:28)
[2020-09-07] MEDS ORDERED: SODIUM POLYSTYRENE SULFONATE 15 G/60 ML BOT PO SCH (11:00)
[2020-09-07] MEDS: DOCUSATE SODIUM 100MG CAPSULE PO SCH (21:21)
[2020-09-07] MEDS: FAMOTIDINE 20MG TABLET PO SCH (21:21)
[2020-09-07] MEDS: INSULIN GLARGINE UD 100 UNITS/ML SYR SUBCUT SCH (21:23)
[2020-09-08] VITALS: BP 119/63
[2020-09-08 04:00] VITALS: BP 109/62
[2020-09-08] MEDS: GABAPENTIN 300MG CAPSULE PO SCH ×2 (06:04→16:17)
[2020-09-08] MEDS: INSULIN LISPRO 100 UNITS/ML SUBCUT SCH ×6 (06:05→17:40)
[2020-09-08] MEDS: BLOOD SUGAR DIAGNOSTIC STRIP TEST SCH ×3 (06:06→17:50)
[2020-09-08 08:00] VITALS: BP 150/70
[2020-09-08 08:39] LABS: CHLORIDE 110 mEq/L (98-107)
[2020-09-08 08:47] LABS: PHOSPHORUS 3.1 mg/dL (2.5-4.9)
[2020-09-08] MEDS: EZETIMIBE 10MG TABLET PO SCH (09:39)
[2020-09-08] MEDS: APIXABAN 2.5 MG TABLET PO SCH ×2 (09:40→16:18)
[2020-09-08] MEDS: FOLIC ACID 1MG TABLET PO SCH (09:40)
[2020-09-08] MEDS: ASPIRIN 81MG EC TABLET PO SCH (09:40)
[2020-09-08] MEDS: METHIMAZOLE 5MG TABLET PO SCH (09:40)
[2020-09-08] MEDS: CARVEDILOL 6.25 MG TABLET PO SCH (09:40)
[2020-09-08] MEDS: NEOMYCIN/BACITRACIN/POLYMYXIN OINT 14GM TOP SCH (09:41)
[2020-09-08 10:19] LABS: BASOPHILS % 0.9 % (0.0-2.0); EOSINOPHILS % 5.5 % (0.0-5.0); HEMATOCRIT. 38.3 % (42.0-52.0); HEMOGLOBIN. 12.8 g/dL (14.0-18.0); MEAN CORPUSCULAR HEMOGLOBIN 30.8 pg (28.0-32.0); MEAN CORPUSCULAR VOLUME 92.1 fL (80.0-94.0); MEAN PLATELET VOLUME 8.2 fl (7.4-10.4); MONOCYTES % 11.2 % (2.0-8.0); NEUTROPHILS % 42.4 % (40.0-76.0); PLATELET 227 x1000/uL (130-400); RED BLOOD CELL COUNT 4.15 mill/uL (4.7-6.1); RED CELL DISTRIBUTION WIDTH 13.8 % (11.6-14.6)
[2020-09-08 12:00] VITALS: BP 142/76
[2020-09-08 13:38] VITALS: BP 150/70
== END 2020-09-08 17:10 | disposition home or self-care (01) | DRG 637 ==
LOC: ER 10:27 → 8WST 12:31 → EDBEDREQTM 12:34 → EDBEDREQ 12:34 → EDBEDREQSVC 12:34 → ENRESERV 13:27 → ER 15:23
PROVIDERS: ADMIT Hospitalist; ATTEND Hospitalist
DX: E11.00 Type 2 diabetes mellitus with hyperosmolarity without nonketotic hyperglycemic-hyperosmolar coma (NKHHC) (principal); N17.0 Acute kidney failure with tubular necrosis; E87.1 Hypo-osmolality and hyponatremia; E87.2 Acidosis; I13.0 Hypertensive heart and chronic kidney disease with heart failure and stage 1 through stage 4 chronic kidney disease, or unspecified chronic kidney disease; I82.501 Chronic embolism and thrombosis of unspecified deep veins of right lower extremity; I42.9 Cardiomyopathy, unspecified; N39.0 Urinary tract infection, site not specified; Z68.41 Body mass index [BMI] 40.0-44.9, adult; N18.4 Chronic kidney disease, stage 4 (severe); D68.69 Other thrombophilia; Z68.43 Body mass index [BMI] 50.0-59.9, adult; E11.43 Type 2 diabetes mellitus with diabetic autonomic (poly)neuropathy; E11.22 Type 2 diabetes mellitus with diabetic chronic kidney disease; E11.51 Type 2 diabetes mellitus with diabetic peripheral angiopathy without gangrene; E11.65 Type 2 diabetes mellitus with hyperglycemia; E66.01 Morbid (severe) obesity due to excess calories; F14.10 Cocaine abuse, uncomplicated; B35.1 Tinea unguium; D64.9 Anemia, unspecified; E78.00 Pure hypercholesterolemia, unspecified; E78.5 Hyperlipidemia, unspecified; E87.5 Hyperkalemia; F17.210 Nicotine dependence, cigarettes, uncomplicated; G47.33 Obstructive sleep apnea (adult) (pediatric); G62.9 Polyneuropathy, unspecified; G89.29 Other chronic pain; I25.10 Atherosclerotic heart disease of native coronary artery without angina pectoris; I27.20 Pulmonary hypertension, unspecified; I48.91 Unspecified atrial fibrillation; I50.9 Heart failure, unspecified; J44.9 Chronic obstructive pulmonary disease, unspecified; L98.9 Disorder of the skin and subcutaneous tissue, unspecified; M15.9 Polyosteoarthritis, unspecified; N40.0 Benign prostatic hyperplasia without lower urinary tract symptoms; Z96.641 Presence of right artificial hip joint; Z96.653 Presence of artificial knee joint, bilateral; N52.9 Male erectile dysfunction, unspecified; S31.31XA Laceration without foreign body of scrotum and testes, initial encounter; Z79.01 Long term (current) use of anticoagulants; Z79.4 Long term (current) use of insulin; Z82.49 Family history of ischemic heart disease and other diseases of the circulatory system; Z95.0 Presence of cardiac pacemaker; Z79.899 Other long term (current) drug therapy; Z82.1 Family history of blindness and visual loss; Z83.3 Family history of diabetes mellitus; X58.XXXA Exposure to other specified factors, initial encounter; Y93.89 Activity, other specified; Y92.89 Other specified places as the place of occurrence of the external cause; Y99.8 Other external cause status
CPT/HCPCS: 36415; 36600; 71045; 76705; 80048; 80053; 80305; 80320; 81003; 82010; 82375; 82805; 82962; 83036; 83735; 83880; 83930; 83935; 84100; 84484; 84681; 85025; 93005; 93970; 99291; A6261; J0696; J1815; J2405; J3490; J7060; G0480

== ENCOUNTER 2021-09-30 05:04 | Inpatient (IN) | payer MEDICARE, MEDICAID ==
[~2021-09-30] VITALS: Ht 172.7 cm; Wt 118.8 kg
[~2021-09-30 05:04] MED LIST changes: -LIDOCAINE HCL/PF 1% 2ML VIAL ONE
[2021-09-30] MEDS ORDERED: ACETAMINOPHEN WITH CODEINE 300/30MG TABLET PO STA (05:36)
[2021-09-30 06:46] LABS: CLARITY URINE CLEAR (CLEAR); COLOR URINE YELLOW (YELLOW); KETONES URINE NEGATIVE (NEGATIVE); LEUKOCYTE ESTERASE URINE NEGATIVE (NEGATIVE); NITRITE URINE NEGATIVE (NEGATIVE); OCCULT BLOOD URINE NEGATIVE (NEGATIVE); PH URINE 5.5 (4.5-8.0); PROTEIN URINE NEGATIVE (NEGATIVE); UROBILINOGEN URINE 0.2 E.U./dL (0.2-1.0)
[2021-09-30 06:53] LABS: CHLORIDE 117 mEq/L (98-107)
[2021-09-30 07:43] LABS: BASOPHILS % 0.7 % (0.0-2.0); EOSINOPHILS % 4.3 % (0.0-5.0); HEMOGLOBIN. 12.6 g/dL (14.0-18.0); LYMPHOCYTES % 36.5 % (20.0-50.0); MEAN CORPUSCULAR HEMOGLOBIN 31.6 pg (28.0-32.0); MEAN CORPUSCULAR VOLUME 94.9 fL (80.0-94.0); MEAN PLATELET VOLUME 8.3 fl (7.4-10.4); MONOCYTES % 10.7 % (2.0-8.0); NEUTROPHILS % 47.8 % (40.0-76.0); PLATELET 180 x1000/uL (130-400); RED CELL DISTRIBUTION WIDTH 14.1 % (11.6-14.6)
[2021-09-30] MEDS ORDERED: FUROSEMIDE 40MG/4ML VIAL IVP ONE (07:45)
[2021-09-30] MEDS ORDERED: MORPHINE SULFATE 4 MG/ML CPJ (NOT FOR IM USE) IV ONE (07:45)
[2021-09-30] MEDS ORDERED: ACETAMINOPHEN 325MG TABLET PO PRN (15:00)
[2021-09-30] MEDS ORDERED: ONDANSETRON HCL 4MG/2ML INJ IV PRN (15:00)
[2021-09-30] MEDS ORDERED: FUROSEMIDE 40MG/4ML VIAL IVP SCH (17:15)
[2021-09-30 18:22] LABS: *AMPHETAMINES SCREEN URINE NEGATIVE (NEGATIVE); *BARBITURATES SCREEN URINE NEGATIVE (NEGATIVE); CANNABINOID URINE SCREEN NEGATIVE (NEGATIVE); METHADONE URINE SCREEN NEGATIVE (NEGATIVE); OPIATES URINE SCREEN PRESUMTIVE POSITIVE (NEGATIVE); PHENCYCLIDINE URINE SCREEN NEGATIVE (NEGATIVE)
[2021-09-30 18:23] LABS: *BENZODIAZEPINES SCREEN URINE NEGATIVE (NEGATIVE); *COCAINE SCREEN URINE PRESUMTIVE POSITIVE (NEGATIVE)
[2021-09-30 19:08] VITALS: BP 145/67
[2021-09-30 20:00] VITALS: BP_SYST 129; BP_SYST 145; BP_DIAS 67; BP_DIAS 81
[2021-09-30] MEDS ORDERED: NALOXONE HCL 0.4MG/ML VIAL IV PRN (20:45)
[2021-09-30] MEDS: FUROSEMIDE 40MG/4ML VIAL IVP SCH (20:57)
[2021-09-30] MEDS: HYDROCODONE/ACETAMINOPHEN 10/325MG TABLET PO PRN (20:59)
[2021-09-30] MEDS ORDERED: CARVEDILOL 3.125 MG TABLET PO SCH (21:00)
[2021-10-01] VITALS: BP 115/51
[2021-10-01 04:00] VITALS: BP 113/69
[2021-10-01] MEDS: FUROSEMIDE 40MG/4ML VIAL IVP SCH ×2 (06:37→17:32)
[2021-10-01] MEDS: HYDROCODONE/ACETAMINOPHEN 10/325MG TABLET PO PRN (06:37)
[2021-10-01 07:20] LABS: BASOPHILS % 0.5 % (0.0-2.0); EOSINOPHILS % 4.3 % (0.0-5.0); HEMATOCRIT. 36.5 % (42.0-52.0); HEMOGLOBIN. 12.2 g/dL (14.0-18.0); LYMPHOCYTES % 43.5 % (20.0-50.0); MEAN CORPUSCULAR HEMOGLOBIN 31.9 pg (28.0-32.0); MEAN CORPUSCULAR VOLUME 95.2 fL (80.0-94.0); MEAN PLATELET VOLUME 8.4 fl (7.4-10.4); MONOCYTES % 11.2 % (2.0-8.0); NEUTROPHILS % 40.5 % (40.0-76.0); PLATELET 171 x1000/uL (130-400); RED BLOOD CELL COUNT 3.84 mill/uL (4.7-6.1)
[2021-10-01 08:00] VITALS: BP 104/65
[2021-10-01] MEDS ORDERED: LOSARTAN POTASSIUM 25 MG TABLET PO SCH (09:00)
[2021-10-01] MEDS ORDERED: SODIUM POLYSTYRENE SULFONATE 15 G/60 ML BOT PO SCH (09:00)
[2021-10-01] MEDS: ASPIRIN 81MG TABLET PO SCH ×2 (09:50→09:52)
[2021-10-01] MEDS: GABAPENTIN 100MG CAPSULE PO SCH ×3 (11:25→21:41)
[2021-10-01] MEDS: DIPHENHYDRAMINE 50MG CAPSULE PO PRN ×2 (11:25→19:47)
[2021-10-01 12:00] VITALS: BP 121/74
[2021-10-01 16:00] VITALS: BP 122/73
[2021-10-01] MEDS ORDERED: IPRATROPIUM/ALBUTEROL 0.5-3(2.5)MG/3ML NEB HHN PRN (18:15)
[2021-10-01] MEDS: HYDROCODONE/ACETAMINOPHEN 5/325MG TABLET PO PRN (19:47)
[2021-10-01 20:00] VITALS: BP 108/51
[2021-10-01] MEDS ORDERED: AMITRIPTYLINE 25MG TABLET PO SCH (21:00)
[2021-10-02] VITALS: BP 135/79
[2021-10-02 04:00] VITALS: BP 98/58
[2021-10-02] MEDS: DIPHENHYDRAMINE 50MG CAPSULE PO PRN (06:00)
[2021-10-02] MEDS: HYDROCODONE/ACETAMINOPHEN 5/325MG TABLET PO PRN (06:00)
[2021-10-02] MEDS: GABAPENTIN 100MG CAPSULE PO SCH ×2 (06:00→14:00)
[2021-10-02] MEDS: FUROSEMIDE 40MG/4ML VIAL IVP SCH (06:22)
[2021-10-02 08:00] VITALS: BP 105/74
[2021-10-02 08:17] LABS: BASOPHILS % 0.3 % (0.0-2.0); EOSINOPHILS % 4.9 % (0.0-5.0); HEMATOCRIT. 35.5 % (42.0-52.0); HEMOGLOBIN. 12.1 g/dL (14.0-18.0); LYMPHOCYTES % 40.2 % (20.0-50.0); MEAN CORPUSCULAR HEMOGLOBIN 32.1 pg (28.0-32.0); MEAN CORPUSCULAR VOLUME 94.3 fL (80.0-94.0); MEAN PLATELET VOLUME 8.7 fl (7.4-10.4); MONOCYTES % 11.4 % (2.0-8.0); NEUTROPHILS % 43.2 % (40.0-76.0); PLATELET 169 x1000/uL (130-400); RED BLOOD CELL COUNT 3.76 mill/uL (4.7-6.1); RED CELL DISTRIBUTION WIDTH 13.9 % (11.6-14.6)
[2021-10-02 08:51] LABS: CHLORIDE 111 mEq/L (98-107)
[2021-10-02] MEDS: ASPIRIN 81MG TABLET PO SCH (09:37)
[2021-10-02 12:00] VITALS: BP 117/75
[2021-10-02 12:57] VITALS: BP 117/75
[2021-10-02] MEDS ORDERED: FUROSEMIDE 40MG TABLET PO SCH (21:00)
== END 2021-10-02 14:55 | disposition home or self-care (01) | DRG 291 ==
LOC: ER 05:15 → MICUSO 09:18 → EDBEDREQ 09:27 → EDBEDREQTM 09:27 → 5WST 18:52
PROVIDERS: ADMIT Internal Medicine; ATTEND Internal Medicine
PROC: 4B02XSZ Measurement of Cardiac Pacemaker, External Approach (ICD-10-PCS; principal; 2021-10-01)
DX: I11.0 Hypertensive heart disease with heart failure (principal); I50.23 Acute on chronic systolic (congestive) heart failure; N17.9 Acute kidney failure, unspecified; I42.8 Other cardiomyopathies; D64.9 Anemia, unspecified; E11.42 Type 2 diabetes mellitus with diabetic polyneuropathy; E78.5 Hyperlipidemia, unspecified; E87.5 Hyperkalemia; E87.8 Other disorders of electrolyte and fluid balance, not elsewhere classified; F14.10 Cocaine abuse, uncomplicated; Z96.649 Presence of unspecified artificial hip joint; Z20.822 Contact with and (suspected) exposure to COVID-19; E11.51 Type 2 diabetes mellitus with diabetic peripheral angiopathy without gangrene; I25.10 Atherosclerotic heart disease of native coronary artery without angina pectoris; I49.5 Sick sinus syndrome; J44.9 Chronic obstructive pulmonary disease, unspecified; Z79.01 Long term (current) use of anticoagulants; Z86.718 Personal history of other venous thrombosis and embolism; Z87.891 Personal history of nicotine dependence; Z95.810 Presence of automatic (implantable) cardiac defibrillator; Z71.51 Drug abuse counseling and surveillance of drug abuser
CPT/HCPCS: 36415; 71045; 71250; 80048; 80053; 80305; 81003; 83036; 83735; 83880; 84484; 85025; 87426; 93005; 93306; 93970; 99291; J1940; J2270; Q0163

== ENCOUNTER 2022-06-03 18:18 | Inpatient (IN) | payer MEDICARE, MEDICAID ==
[~2022-06-03] VITALS: Ht 175.3 cm; Wt 92.1 kg
[~2022-06-03 18:18] MED LIST changes: +METH-371 PO; -TAP5 PO
[2022-06-03] MEDS ORDERED: MECLIZINE 25MG TABLET PO ONE (19:15)
[2022-06-03 19:45] LABS: BASOPHILS % 0.5 % (0.0-2.0); EOSINOPHILS % 2.6 % (0.0-5.0); HEMATOCRIT. 43.4 % (42.0-52.0); HEMOGLOBIN. 14.5 g/dL (14.0-18.0); LYMPHOCYTES % 32.5 % (20.0-50.0); MEAN CORPUSCULAR HEMOGLOBIN 32.5 pg (28.0-32.0); MEAN CORPUSCULAR VOLUME 97.1 fL (80.0-94.0); MEAN PLATELET VOLUME 8.1 fl (7.4-10.4); MONOCYTES % 7.7 % (2.0-8.0); NEUTROPHILS % 56.7 % (40.0-76.0); PLATELET 155 x1000/uL (130-400); RED BLOOD CELL COUNT 4.47 mill/uL (4.7-6.1); RED CELL DISTRIBUTION WIDTH 13.8 % (11.6-14.6)
[2022-06-03 19:51] LABS: CHLORIDE 110 mEq/L (98-107)
[2022-06-03 20:02] LABS: ETHANOL BLOOD < 10 mg/dL
[2022-06-03] MEDS ORDERED: FUROSEMIDE 40MG/4ML VIAL IV ONE (20:15)
[2022-06-03 22:41] LABS: *AMPHETAMINES SCREEN URINE NEGATIVE (NEGATIVE); *BARBITURATES SCREEN URINE NEGATIVE (NEGATIVE); *BENZODIAZEPINES SCREEN URINE NEGATIVE (NEGATIVE); *COCAINE SCREEN URINE PRESUMTIVE POSITIVE (NEGATIVE); CANNABINOID URINE SCREEN NEGATIVE (NEGATIVE); METHADONE URINE SCREEN NEGATIVE (NEGATIVE); OPIATES URINE SCREEN NEGATIVE (NEGATIVE); PHENCYCLIDINE URINE SCREEN NEGATIVE (NEGATIVE)
[2022-06-04 02:30] VITALS: BP 128/60
[2022-06-04 06:31] LABS: BASOPHILS % 0.5 % (0.0-2.0); EOSINOPHILS % 2.9 % (0.0-5.0); HEMATOCRIT. 40.9 % (42.0-52.0); HEMOGLOBIN. 13.8 g/dL (14.0-18.0); LYMPHOCYTES % 46.7 % (20.0-50.0); MEAN CORPUSCULAR HEMOGLOBIN 32.8 pg (28.0-32.0); MEAN CORPUSCULAR VOLUME 97.1 fL (80.0-94.0); MEAN PLATELET VOLUME 8.2 fl (7.4-10.4); MONOCYTES % 9.1 % (2.0-8.0); NEUTROPHILS % 40.8 % (40.0-76.0); PLATELET 141 x1000/uL (130-400); RED BLOOD CELL COUNT 4.21 mill/uL (4.7-6.1); RED CELL DISTRIBUTION WIDTH 13.9 % (11.6-14.6)
[2022-06-04 08:00] VITALS: BP 129/71
[2022-06-04] MEDS ORDERED: ALBUTEROL (0.5%) 2.5MG/0.5ML NEB HHN PRN (08:15)
[2022-06-04] MEDS ORDERED: INFLUENZA VACCINE 05/PF 0.5 ML SYRINGE IM ONE (09:00)
[2022-06-04] MEDS ORDERED: CARVEDILOL 6.25 MG TABLET PO SCH (09:00)
[2022-06-04] MEDS ORDERED: APIXABAN 2.5 MG TABLET PO SCH (09:00)
[2022-06-04] MEDS ORDERED: FUROSEMIDE 40MG TABLET PO SCH (09:00)
[2022-06-04] MEDS: ASPIRIN 81MG EC TABLET PO SCH (11:39)
[2022-06-04 12:00] VITALS: BP 123/70
[2022-06-04] MEDS ORDERED: AMLODIPINE 5MG TABLET PO NR (12:30)
[2022-06-04] MEDS ORDERED: ALBUTEROL (0.083%) 2.5MG/3ML NEB HHN PRN (14:45)
[2022-06-04 16:00] VITALS: BP 141/89
[2022-06-04] MEDS: FUROSEMIDE 40MG TABLET PO SCH (17:26)
[2022-06-04 20:00] VITALS: BP 120/68
[2022-06-04] MEDS ORDERED: NALOXONE HCL 0.4MG/ML VIAL IV PRN (20:00)
[2022-06-04] MEDS ORDERED: DEXTROSE 50% WATER 50ML SYRINGE IV PRN (20:00)
[2022-06-04] MEDS: HYDROCODONE/ACETAMINOPHEN 10/325MG TABLET PO PRN (20:04)
[2022-06-04] MEDS: BLOOD SUGAR DIAGNOSTIC STRIP TEST SCH (20:08)
[2022-06-04] MEDS ORDERED: DOCUSATE SODIUM 100MG CAPSULE PO SCH (21:00)
[2022-06-04] MEDS: INSULIN LISPRO 100 UNITS/ML SUBCUT SCH (21:11)
[2022-06-05] VITALS: BP 137/74
[2022-06-05 04:00] VITALS: BP 114/65
[2022-06-05] MEDS ORDERED: DIPHENHYDRAMINE 50MG CAPSULE PO PRN (05:00)
[2022-06-05] MEDS: INSULIN LISPRO 100 UNITS/ML SUBCUT SCH ×2 (07:50→12:50)
[2022-06-05] MEDS: BLOOD SUGAR DIAGNOSTIC STRIP TEST SCH ×3 (07:52→17:37)
[2022-06-05 08:00] VITALS: BP 118/75
[2022-06-05] MEDS ORDERED: AMLODIPINE 5MG TABLET PO SCH (09:00)
[2022-06-05] MEDS: ASPIRIN 81MG EC TABLET PO SCH (09:22)
[2022-06-05] MEDS: FUROSEMIDE 40MG TABLET PO SCH (09:22)
[2022-06-05] MEDS: HYDROCODONE/ACETAMINOPHEN 10/325MG TABLET PO PRN (09:29)
[2022-06-05] MEDS ORDERED: SACUBITRIL/VALSARTAN 49MG/51MG TABLET PO SCH (10:30)
[2022-06-05 12:00] VITALS: BP 105/66
[2022-06-05 15:59] VITALS: BP 105/66
[2022-06-05 16:00] VITALS: BP 99/50
== END 2022-06-05 18:15 | disposition home or self-care (01) | DRG 73 ==
LOC: ER 18:18 → MICUSO 21:47 → 6WST 06-04 02:25
PROVIDERS: ADMIT Internal Medicine; ATTEND Internal Medicine
DX: G90.8 Other disorders of autonomic nervous system (principal); I50.23 Acute on chronic systolic (congestive) heart failure; I13.0 Hypertensive heart and chronic kidney disease with heart failure and stage 1 through stage 4 chronic kidney disease, or unspecified chronic kidney disease; N17.9 Acute kidney failure, unspecified; I42.0 Dilated cardiomyopathy; E11.22 Type 2 diabetes mellitus with diabetic chronic kidney disease; E66.09 Other obesity due to excess calories; E78.00 Pure hypercholesterolemia, unspecified; F14.90 Cocaine use, unspecified, uncomplicated; G47.33 Obstructive sleep apnea (adult) (pediatric); I25.10 Atherosclerotic heart disease of native coronary artery without angina pectoris; I27.20 Pulmonary hypertension, unspecified; K21.9 Gastro-esophageal reflux disease without esophagitis; I34.0 Nonrheumatic mitral (valve) insufficiency; Z96.649 Presence of unspecified artificial hip joint; Z96.653 Presence of artificial knee joint, bilateral; J44.9 Chronic obstructive pulmonary disease, unspecified; M48.061 Spinal stenosis, lumbar region without neurogenic claudication; N18.9 Chronic kidney disease, unspecified; Z79.899 Other long term (current) drug therapy; Z95.0 Presence of cardiac pacemaker; Z98.41 Cataract extraction status, right eye; Z98.42 Cataract extraction status, left eye; Z79.82 Long term (current) use of aspirin; Z71.3 Dietary counseling and surveillance; Z71.51 Drug abuse counseling and surveillance of drug abuser; Z86.718 Personal history of other venous thrombosis and embolism; Z68.30 Body mass index [BMI] 30.0-30.9, adult
CPT/HCPCS: 36415; 71045; 80048; 80053; 80305; 80320; 83036; 83605; 83880; 84484; 85025; 86850; 86900; 99291; J1815; J1940; J8597; Q0163; G0480

== ENCOUNTER → 2022-06-23 | Outpatient (CLI) | payer MEDICARE, MEDICAID ==
[~2022-06-23] MED LIST changes: -APIX2.5T PO; +BARIUM SULFATE 176 GM SUSP.RECON ONE; +EZ-HD SUSPENSION(BARIUM SULFATE 340GM) PO ONE
== END | disposition home or self-care (01) ==
LOC: RAD 08:06
PROVIDERS: ATTEND Internal Medicine Gastroenterology
DX: R13.10 Dysphagia, unspecified (principal); R19.2 Visible peristalsis
CPT/HCPCS: 74220

== ENCOUNTER 2022-08-05 11:22 | Emergency (ER) | payer MEDICARE, MEDICAID ==
[~2022-08-05] VITALS: Ht 172.7 cm; Wt 96.0 kg
[~2022-08-05 11:22] MED LIST changes: -BARIUM SULFATE 176 GM SUSP.RECON ONE; -EZ-HD SUSPENSION(BARIUM SULFATE 340GM) PO ONE
[2022-08-05] MEDS ORDERED: IBUPROFEN 600MG TABLET PO ONE (11:30)
[2022-08-05] MEDS ORDERED: IBUP-2029 MT (13:25)
[2022-08-05] MEDS ORDERED: CYCL10TA21 MT (13:25)
[2022-08-05 14:00] VITALS: BP 168/93
== END 2022-08-05 14:50 | disposition home or self-care (01) ==
LOC: ER 11:48
DX: S90.01XA Contusion of right ankle, initial encounter (principal); R07.89 Other chest pain; S70.01XA Contusion of right hip, initial encounter; W01.0XXA Fall on same level from slipping, tripping and stumbling without subsequent striking against object, initial encounter; Y93.89 Activity, other specified; Y92.89 Other specified places as the place of occurrence of the external cause; I11.0 Hypertensive heart disease with heart failure; I50.9 Heart failure, unspecified; E11.9 Type 2 diabetes mellitus without complications; I25.10 Atherosclerotic heart disease of native coronary artery without angina pectoris; E78.00 Pure hypercholesterolemia, unspecified; Z79.899 Other long term (current) drug therapy; Z79.84 Long term (current) use of oral hypoglycemic drugs; Z95.0 Presence of cardiac pacemaker
CPT/HCPCS: 71101; 73610; 99284

== ENCOUNTER 2022-09-26 14:26 | Emergency (ER) | payer MEDICARE, MEDICAID ==
[~2022-09-26] VITALS: Ht 172.7 cm; Wt 102.0 kg
[~2022-09-26 14:26] MED LIST changes: +CYCL10TA21 MT; +IBUP-2029 MT
[2022-09-26] MEDS ORDERED: TRAMADOL HCL/ACETAMINOPHEN 37.5/325MG TABLET PO NR (20:15)
[2022-09-26 20:54] VITALS: BP 132/78
[2022-09-26] MEDS ORDERED: FURO20TA4 MT (22:04)
[2022-09-26] MEDS ORDERED: FURO40TA5 MT ×2 (22:04)
[2022-09-26] MEDS ORDERED: TRAM-529 MT (22:04)
[2022-09-30] MEDS ORDERED: DICL2.5D8 EACHEYE (16:13)
[2022-09-30] MEDS ORDERED: DULA0.75 SQ (16:13)
[2022-09-30] MEDS ORDERED: DULA1.5P SQ (16:13)
== END 2022-09-26 22:51 | disposition home or self-care (01) ==
LOC: ER 14:36
DX: S80.02XA Contusion of left knee, initial encounter (principal); S80.01XA Contusion of right knee, initial encounter; W18.39XA Other fall on same level, initial encounter; Y93.89 Activity, other specified; Y92.89 Other specified places as the place of occurrence of the external cause; Y99.8 Other external cause status; J44.9 Chronic obstructive pulmonary disease, unspecified; E11.9 Type 2 diabetes mellitus without complications; I10 Essential (primary) hypertension; H40.9 Unspecified glaucoma; Z79.899 Other long term (current) drug therapy
CPT/HCPCS: 73560; 82962; 99283

== ENCOUNTER 2025-04-06 23:43 | Inpatient (IN) | payer MEDICARE, MEDICAID ==
[~2025-04-06] VITALS: Ht 182.9 cm; Wt 102.1 kg
[~2025-04-06 23:43] MED LIST changes: -ALBU18HF2 IH; +AMLO10TA80 PO; +ASPI-1406 PO; -ASPI-1497 PO; +BRIM5DRO6 EACHEYE; -BUDE6HFA IH; -CARV6.2548 MT; -CYCL10TA21 MT; -DEXL60CA3 PO; -DOCU-150 MT; +DOXA2TAB2 PO; -EZET10TA26 PO; +EZET10TA81 PO; -FLUT15.844 BOTHNSTRLS; -FOLI-43 PO; +FURO20TA4 MT; -FURO40TA5 MT; -HYDR-4346 MT; +HYDR50TA40 PO; -IBUP-2029 MT; +LINA5TAB MT; -LIRA0.6P2 SQ; -METH-371 PO; +PENT400T16 PO; -SACU1TAB7 MT; -SITA100T11 PO
[2025-04-06 23:48] VITALS: O2SAT 98
[2025-04-07] MEDS: ONDANSETRON HCL 4MG/2ML INJ IV ONE (00:52)
[2025-04-07] MEDS: MORPHINE SULFATE 4 MG/ML INJ (FOR IV/IM USE) IV ONE (00:52)
[2025-04-07] MEDS: SODIUM CHLORIDE 0.9% 1,000 ML IV ONE (00:52)
[2025-04-07 01:12] LABS: UREA NITROGEN BLOOD 28 mg/dL (9-23)
[2025-04-07 01:13] LABS: ASPARTATE AMINOTRANSFERASE 9 IU/L (<34); CREATININE 2.8 mg/dL (0.6-1.3)
[2025-04-07 01:14] LABS: BILIRUBIN DIRECT 0.2 mg/dL (<=3.0); BILIRUBIN TOTAL 0.7 mg/dL (0.1-1.0); PROTEIN TOTAL 6.3 g/dL (6.0-8.3)
[2025-04-07 01:15] LABS: TROPONIN I HIGH SENSITIVITY 68 ng/L (3.0-53)
[2025-04-07 02:16] LABS: BG BASE EXCESS -4.0 mmol/L (-2.0-3.0); BG CARBOXYHEMOGLOBIN 1.1 % (0.5-1.5); BG DEOXYHEMOGLOBIN 5.1 % (0.0-5.0); BG FRACTION INSPIRED OXYGEN 21; BG HCO3 ACT 20.3 mmol/L (21.0-28.0); BG METHEMOGLOBIN 0.3 % (0.5-1.5); BG OXYGEN SATURATION 94.8 % (94.0-98.0); BG OXYHEMOGLOBIN 93.5 % (94.0-98.0); BG PCO2 35.0 mmHg (35.0-48.0); BG PH 7.381 (7.350-7.450); BG PO2 72.1 mmHg (83.0-108.0); BG SAMPLE SITE RIGHT RADIAL; BG TOTAL HEMOGLOBIN 14.9 g/dL (13.5-17.5); BG VENT MODE ROOM AIR
[2025-04-07 02:40] LABS: ETHANOL BLOOD < 10 mg/dL (<10)
[2025-04-07] MEDS ORDERED: IOHEXOL-350 100 ML BOTTLE ONE (02:41)
[2025-04-07 03:58] LABS: HEMATOCRIT. 43.0 % (42.0-52.0); HEMOGLOBIN. 14.2 g/dL (14.0-18.0); MEAN PLATELET VOLUME 9.1 fl (7.4-10.4); PLATELET 102 x1000/uL (130-400); RED BLOOD CELL COUNT 4.68 mill/uL (4.7-6.1); RED CELL DISTRIBUTION WIDTH 13.5 % (11.6-14.6)
[2025-04-07 04:07] LABS: CLARITY URINE CLEAR (CLEAR); COLOR URINE YELLOW (YELLOW); GLUCOSE URINE 3+ (NEGATIVE); KETONES URINE NEGATIVE (NEGATIVE); LEUKOCYTE ESTERASE URINE 1+ (NEGATIVE); NITRITE URINE NEGATIVE (NEGATIVE); OCCULT BLOOD URINE NEGATIVE (NEGATIVE); PH URINE 5.5 (4.5-8.0); PROTEIN URINE 2+ (NEGATIVE); SPECIFIC GRAVITY URINE 1.024 (1.005-1.030); UROBILINOGEN URINE 0.2 E.U./dL (0.2-1.0)
[2025-04-07 04:21] LABS: *AMPHETAMINES SCREEN URINE NEGATIVE (NEGATIVE); *BARBITURATES SCREEN URINE NEGATIVE (NEGATIVE); *BENZODIAZEPINES SCREEN URINE NEGATIVE (NEGATIVE); *COCAINE SCREEN URINE PRESUMPTIVE POSITIVE (NEGATIVE); METHADONE URINE SCREEN NEGATIVE (NEGATIVE); OPIATES URINE SCREEN NEGATIVE (NEGATIVE)
[2025-04-07 04:22] LABS: CANNABINOID URINE SCREEN NEGATIVE (NEGATIVE); ECSTASY MDMA SCREEN URINE NEGATIVE (NEGATIVE); PHENCYCLIDINE URINE SCREEN NEGATIVE (NEGATIVE)
[2025-04-07 04:27] LABS: SQUAMOUS EPITHELIAL CELL URINE 1+ /lpf (RARE/1+)
[2025-04-07 04:29] LABS: RBC URINE 0-2 /hpf (0-2)
[2025-04-07 04:36] LABS: BACTERIA URINE TRACE
[2025-04-07 06:33] LABS: ATYPICAL LYMPHOCYTES 1; BAND% 4.0 % (1.0-6.0); EOSINOPHILS % MANUAL 1.0 % (0.0-5.0); LYMPHOCYTES % MANUAL 43.0 % (20.0-50.0); MONOCYTES % MANUAL 6.0 % (2.0-8.0); NEUTROPHILS % MANUAL 45.0 % (45.0-75.0)
[2025-04-07 06:35] LABS: PLATELET ESTIMATE DECREAS
[2025-04-07] MEDS ORDERED: GUAIFENESIN 200MG/10ML SUGAR FREE UDC PO PRN (08:30)
[2025-04-07] MEDS ORDERED: DIPHENHYDRAMINE 50MG/ML VIAL IV PRN (08:30)
[2025-04-07] MEDS ORDERED: ACETAMINOPHEN 325MG TABLET PO PRN (08:30)
[2025-04-07] MEDS ORDERED: ZOLPIDEM TARTRATE 5MG TABLET PO PRN (08:30)
[2025-04-07] MEDS ORDERED: ONDANSETRON HCL 4MG/2ML INJ IV PRN (08:30)
[2025-04-07] MEDS ORDERED: DEXTROSE 50% WATER 50ML SYRINGE IV PRN (08:30)
[2025-04-07] MEDS ORDERED: MAGNESIUM/ALUMINUM HYDROXIDE/SIMETHICONE 30ML UDC PO PRN (08:30)
[2025-04-07] MEDS ORDERED: NALOXONE HCL 0.4MG/ML VIAL IV PRN (09:00)
[2025-04-07] MEDS: AMLODIPINE 2.5MG TABLET PO SCH (10:00)
[2025-04-07] MEDS: SODIUM CHLORIDE 0.9% 1,000 ML IV SCH (10:01)
[2025-04-07 10:36] VITALS: BP 126/82; PULSE 75; RESP 18; TEMP 36.8072
[2025-04-07 12:00] VITALS: BP 160/77; PULSE 83; RESP 18; TEMP 36.8; O2SAT 100
[2025-04-07] MEDS: BLOOD SUGAR DIAGNOSTIC STRIP TEST SCH (12:27)
[2025-04-07] MEDS: INSULIN LISPRO 100 UNITS/ML SUBCUT SCH (12:55)
[2025-04-07] MEDS: SODIUM CHLORIDE 0.9% 3ML FLUSH IVF SCH (14:43)
[2025-04-07 16:00] VITALS: BP 134/77; PULSE 81; RESP 18; TEMP 36.6; O2SAT 100
[2025-04-07 20:00] VITALS: BP_SYST 121; BP_SYST 162; BP_DIAS 70; BP_DIAS 84; PULSE 60; RESP 18; TEMP 36.2; O2SAT 99
[2025-04-08] VITALS: BP 133/67; PULSE 82; RESP 18; TEMP 36.8; O2SAT 97
[2025-04-08] MEDS: HYDROCODONE/ACETAMINOPHEN 5/325MG TABLET PO PRN (00:02)
[2025-04-08 04:00] VITALS: BP 132/71; PULSE 74; RESP 18; TEMP 36.4; O2SAT 99
[2025-04-08 08:00] VITALS: BP 136/74; PULSE 76; RESP 18; TEMP 36.9; O2SAT 99
[2025-04-08 08:16] LABS: HEMATOCRIT. 40.6 % (42.0-52.0); HEMOGLOBIN. 13.4 g/dL (14.0-18.0); MEAN PLATELET VOLUME 9.5 fl (7.4-10.4); PLATELET 94 x1000/uL (130-400); RED BLOOD CELL COUNT 4.47 mill/uL (4.7-6.1); RED CELL DISTRIBUTION WIDTH 13.0 % (11.6-14.6)
[2025-04-08 08:32] LABS: CREATININE 2.0 mg/dL (0.6-1.3); UREA NITROGEN BLOOD 26 mg/dL (9-23)
[2025-04-08 08:34] LABS: PHOSPHORUS 2.5 mg/dL (2.5-4.9)
[2025-04-08 12:00] VITALS: BP 136/50; PULSE 72; RESP 12; TEMP 36.7; O2SAT 99
[2025-04-08] MEDS: INSULIN GLARGINE 100 UNITS/ML SUBCUT SCH (13:00)
[2025-04-08 13:27] LABS: BAND% 5.0 % (1.0-6.0); EOSINOPHILS % MANUAL 4.0 % (0.0-5.0); LYMPHOCYTES % MANUAL 42.0 % (20.0-50.0); METAMYELOCYTES % 1.0 % (0-0); MONOCYTES % MANUAL 14.0 % (2.0-8.0); NEUTROPHILS % MANUAL 34.0 % (45.0-75.0); PLATELET ESTIMATE SLIGHTLY DECREASED
[2025-04-08 16:00] VITALS: BP 144/82; PULSE 66; RESP 18; TEMP 36.8; O2SAT 97
[2025-04-08 20:00] VITALS: BP 162/74; PULSE 51; RESP 19; TEMP 36.8; O2SAT 100
[2025-04-08] MEDS: CLONIDINE 0.1MG TABLET PO PRN (20:34)
[2025-04-09] VITALS: BP 126/70; PULSE 62; RESP 17; TEMP 36.7; O2SAT 96
[2025-04-09 04:00] VITALS: BP 108/39; PULSE 73; RESP 18; TEMP 36.4; O2SAT 99
[2025-04-09 08:00] VITALS: BP 128/73; PULSE 75; RESP 18; TEMP 36.1; O2SAT 99
[2025-04-09] MEDS: CYANOCOBALAMIN 1000MCG TABLET PO SCH (08:51)
[2025-04-09 12:00] VITALS: BP 135/72; PULSE 72; RESP 18; TEMP 36.6; O2SAT 99
[2025-04-09] MEDS: ACETAMINOPHEN 325MG TABLET PO PRN (14:32)
[2025-04-09 16:00] VITALS: BP 113/74; PULSE 67; RESP 16; TEMP 36.6; O2SAT 100
[2025-04-09 20:00] VITALS: BP 144/76; PULSE 69; RESP 17; TEMP 36.8; O2SAT 100
[2025-04-09 22:19] LABS: T4 FREE 1.26 ng/dL (0.89-1.76)
[2025-04-10] VITALS: BP 149/63; PULSE 78; RESP 18; TEMP 36.4; O2SAT 98
[2025-04-10 04:00] VITALS: BP 145/66; PULSE 68; RESP 18; TEMP 36.5; O2SAT 94
[2025-04-10 06:51] LABS: CREATININE 1.8 mg/dL (0.6-1.3); UREA NITROGEN BLOOD 25.0 mg/dL (9-23)
[2025-04-10] MEDS: APIXABAN 5 MG TABLET PO SCH (09:48)
[2025-04-10 14:25] VITALS: BP 131/86; PULSE 58; RESP 12; TEMP 98
[2025-04-10 16:00] VITALS: BP 112/66; PULSE 77; RESP 18; TEMP 36.7; O2SAT 99
[2025-04-10 20:00] VITALS: BP 140/97; RESP 17; TEMP 36.4; O2SAT 97
[2025-04-10] MEDS: LINAGLIPTIN 5MG TABLET PO SCH (23:00)
[2025-04-10] MEDS: BRIMONIDINE 0.2% OPHTH DROPS 5ML BOTHEYE SCH (23:00)
[2025-04-10] MEDS: LATANOPROST 0.005% OPHTH DROPS 2.5ML BOTHEYE SCH (23:00)
[2025-04-11] VITALS: BP 131/86; PULSE 63; RESP 18; TEMP 36.5; O2SAT 97
[2025-04-11] MEDS ORDERED: *PATIENT'S OWN MEDICATION STORAGE XX SCH (03:45)
[2025-04-11 04:00] VITALS: BP 141/101; PULSE 67; RESP 17; TEMP 36.4; O2SAT 17
[2025-04-11] MEDS ORDERED: INSULIN LISPRO 100 UNITS/ML SUBCUT SCH (06:45)
[2025-04-11 08:00] VITALS: BP 137/76; PULSE 81; RESP 18; TEMP 36.7; O2SAT 98
[2025-04-11] MEDS: INSULIN LISPRO 100 UNITS/ML SUBCUT SCH (09:58)
[2025-04-11] MEDS: INSULIN GLARGINE 100 UNITS/ML SUBCUT SCH (10:01)
[2025-04-11 10:05] LABS: BASOPHILS % 0.4 % (0.0-2.0); EOSINOPHILS % 2.9 % (0.0-5.0); HEMATOCRIT. 41.5 % (42.0-52.0); HEMOGLOBIN. 13.7 g/dL (14.0-18.0); LYMPHOCYTES % 49.3 % (20.0-50.0); MEAN PLATELET VOLUME 9.6 fl (7.4-10.4); MONOCYTES % 10.0 % (2.0-8.0); NEUTROPHILS % 37.4 % (40.0-76.0); PLATELET 142 x1000/uL (130-400); RED BLOOD CELL COUNT 4.58 mill/uL (4.7-6.1); RED CELL DISTRIBUTION WIDTH 13.3 % (11.6-14.6)
[2025-04-11 10:25] LABS: CREATININE 1.5 mg/dL (0.6-1.3); UREA NITROGEN BLOOD 24.0 mg/dL (9-23)
[2025-04-11 12:00] VITALS: BP 132/68; PULSE 72; RESP 18; TEMP 36.6; O2SAT 100
[2025-04-11] MEDS: SODIUM CHLORIDE 0.9% 500 ML IV NR (14:00)
[2025-04-11 16:00] VITALS: BP 120/65; PULSE 73; RESP 18; TEMP 36.4; O2SAT 100
[2025-04-11] MEDS ORDERED: SODIUM CHLORIDE 0.9% 1,000 ML IV SCH (17:00)
[2025-04-11 20:00] VITALS: BP 171/75; PULSE 81; RESP 18; TEMP 36.4; O2SAT 100
[2025-04-11] MEDS: ATORVASTATIN CALCIUM 40MG TABLET PO SCH (22:05)
[2025-04-11] MEDS: SODIUM CHLORIDE 0.9% 1,000 ML IV SCH (22:12)
[2025-04-11] MEDS ORDERED: IOHEXOL-350 100 ML BOTTLE ONE (22:51)
[2025-04-12] VITALS: BP 101/59; PULSE 85; RESP 18; TEMP 36.1; O2SAT 98
[2025-04-12 04:00] VITALS: BP 104/82; PULSE 82; RESP 16; TEMP 35.6; O2SAT 100
[2025-04-12 08:00] VITALS: BP 116/68; PULSE 77; RESP 15; TEMP 36.6; O2SAT 96
[2025-04-12] MEDS: EZETIMIBE 10MG TABLET PO SCH (10:11)
[2025-04-12 12:00] VITALS: BP 137/69; PULSE 58; RESP 18; TEMP 36.6; O2SAT 100
[2025-04-12 16:00] VITALS: BP 112/66; PULSE 62; RESP 18; TEMP 36.4; O2SAT 100
[2025-04-12] MEDS ORDERED: BRIM.2 BOTHEYE (16:16)
[2025-04-12] MEDS ORDERED: APIX5TAB PO (16:16)
[2025-04-12] MEDS ORDERED: AMLO2.5T45 PO (16:16)
[2025-04-12] MEDS ORDERED: LANTUSUD SUBCUT (16:16)
[2025-04-12] MEDS ORDERED: XALAO BOTHEYE (16:16)
[2025-04-12] MEDS ORDERED: LIP40 PO (16:16)
== END 2025-04-12 18:06 | DRG 637 ==
LOC: ER 04-07 00:08 → 5WST 04-07 03:15 → EDBEDREQ 04-07 03:24 → EDBEDREQTM 04-07 03:24 → ENRESERV 04-07 06:58 → 4WST 04-12 18:01 → 5WST 04-12 18:06
PROVIDERS: ADMIT Internal Medicine; ATTEND Internal Medicine
DX: E11.00 Type 2 diabetes mellitus with hyperosmolarity without nonketotic hyperglycemic-hyperosmolar coma (NKHHC) (principal); G82.50 Quadriplegia, unspecified; I13.0 Hypertensive heart and chronic kidney disease with heart failure and stage 1 through stage 4 chronic kidney disease, or unspecified chronic kidney disease; N17.9 Acute kidney failure, unspecified; I50.32 Chronic diastolic (congestive) heart failure; I42.9 Cardiomyopathy, unspecified; Z59.00 Homelessness unspecified; I82.513 Chronic embolism and thrombosis of femoral vein, bilateral; F19.20 Other psychoactive substance dependence, uncomplicated; E11.36 Type 2 diabetes mellitus with diabetic cataract; E11.22 Type 2 diabetes mellitus with diabetic chronic kidney disease; N18.30 Chronic kidney disease, stage 3 unspecified; D51.0 Vitamin B12 deficiency anemia due to intrinsic factor deficiency; E66.9 Obesity, unspecified; M15.9 Polyosteoarthritis, unspecified; D69.6 Thrombocytopenia, unspecified; N40.0 Benign prostatic hyperplasia without lower urinary tract symptoms; G89.29 Other chronic pain; H40.9 Unspecified glaucoma; N52.9 Male erectile dysfunction, unspecified; E11.43 Type 2 diabetes mellitus with diabetic autonomic (poly)neuropathy; E78.00 Pure hypercholesterolemia, unspecified; I67.1 Cerebral aneurysm, nonruptured; J44.9 Chronic obstructive pulmonary disease, unspecified; M48.02 Spinal stenosis, cervical region; E05.00 Thyrotoxicosis with diffuse goiter without thyrotoxic crisis or storm; E11.42 Type 2 diabetes mellitus with diabetic polyneuropathy; M25.78 Osteophyte, vertebrae; Z96.641 Presence of right artificial hip joint; Z96.653 Presence of artificial knee joint, bilateral; F17.210 Nicotine dependence, cigarettes, uncomplicated; G47.33 Obstructive sleep apnea (adult) (pediatric); M47.812 Spondylosis without myelopathy or radiculopathy, cervical region; Z68.30 Body mass index [BMI] 30.0-30.9, adult; Z79.01 Long term (current) use of anticoagulants; Z79.899 Other long term (current) drug therapy; Z95.0 Presence of cardiac pacemaker; Z95.1 Presence of aortocoronary bypass graft; Z79.84 Long term (current) use of oral hypoglycemic drugs; Z79.82 Long term (current) use of aspirin
CPT/HCPCS: 36415; 36600; 70496; 70498; 71045; 72141; 75635; 80048; 80076; 80305; 80320; 81003; 82010; 82375; 82533; 82550; 82805; 82962; 83036; 83735; 84100; 84439; 84443; 84481; 84484; 85025; 93005; 93923; 93970; 96361; 96374; 97162; 99291; J1815; J2270; J2405; J7030; Q9967; G0480

== ENCOUNTER 2025-04-12 18:00 | Inpatient (IN) | payer MEDICARE, MEDICAID ==
[~2025-04-12] VITALS: Ht 182.9 cm; Wt 108.9 kg
[2025-04-12 18:00] VITALS: BP 166/96; PULSE 69; RESP 19; TEMP 35.6396
[~2025-04-12 18:00] MED LIST changes: +AMLO2.5T45 PO; +APIX5TAB PO; +BRIM.2 BOTHEYE; +LANTUSUD SUBCUT; +LIP40 PO; +XALAO BOTHEYE
[2025-04-12] MEDS ORDERED: MAGNESIUM/ALUMINUM HYDROXIDE/SIMETHICONE 30ML UDC PO PRN (19:15)
[2025-04-12] MEDS ORDERED: DEXTROSE 50% WATER 50ML SYRINGE IV PRN (19:15)
[2025-04-12] MEDS ORDERED: ONDANSETRON HCL 4MG TABLET PO PRN (19:15)
[2025-04-12] MEDS ORDERED: GUAIFENESIN 200MG/10ML SUGAR FREE UDC PO PRN (19:15)
[2025-04-12 20:00] VITALS: BP 166/96; PULSE 69; RESP 19; TEMP 35.6; O2SAT 99
[2025-04-12] MEDS: BLOOD SUGAR DIAGNOSTIC STRIP TEST SCH (21:00)
[2025-04-12] MEDS: APIXABAN 5 MG TABLET PO SCH (22:00)
[2025-04-12] MEDS: ATORVASTATIN CALCIUM 40MG TABLET PO SCH (22:00)
[2025-04-12] MEDS: AMLODIPINE 2.5MG TABLET PO SCH (22:01)
[2025-04-12] MEDS: LATANOPROST 0.005% OPHTH DROPS 2.5ML BOTHEYE SCH (22:02)
[2025-04-12] MEDS: BRIMONIDINE 0.2% OPHTH DROPS 5ML BOTHEYE SCH (22:03)
[2025-04-12] MEDS: INSULIN LISPRO 100 UNITS/ML SUBCUT SCH (22:05)
[2025-04-12] MEDS: SODIUM CHLORIDE 0.9% 3ML FLUSH IVF SCH (22:06)
[2025-04-12] MEDS: ACETAMINOPHEN 325MG TABLET PO PRN (22:20)
[2025-04-12] MEDS: DIPHENHYDRAMINE 25MG CAPSULE PO PRN (22:20)
[2025-04-13] VITALS: BP 152/84; PULSE 75; RESP 18; TEMP 36.2; O2SAT 98
[2025-04-13 08:00] VITALS: BP 122/83; PULSE 73; RESP 18; TEMP 36.4; O2SAT 99
[2025-04-13 08:13] LABS: CREATININE 1.5 mg/dL (0.6-1.3); UREA NITROGEN BLOOD 28 mg/dL (9-23)
[2025-04-13 08:15] LABS: ASPARTATE AMINOTRANSFERASE 14 IU/L (<34); BILIRUBIN TOTAL 0.5 mg/dL (0.1-1.0); PROTEIN TOTAL 5.3 g/dL (6.0-8.3)
[2025-04-13 08:18] LABS: BASOPHILS % 0.4 % (0.0-2.0); EOSINOPHILS % 4.2 % (0.0-5.0); HEMATOCRIT. 38.0 % (42.0-52.0); HEMOGLOBIN. 12.3 g/dL (14.0-18.0); LYMPHOCYTES % 44.3 % (20.0-50.0); MEAN PLATELET VOLUME 8.7 fl (7.4-10.4); MONOCYTES % 7.4 % (2.0-8.0); NEUTROPHILS % 43.7 % (40.0-76.0); PLATELET 174 x1000/uL (130-400); RED BLOOD CELL COUNT 4.17 mill/uL (4.7-6.1); RED CELL DISTRIBUTION WIDTH 13.4 % (11.6-14.6)
[2025-04-13] MEDS: CYANOCOBALAMIN 1000MCG TABLET PO SCH (09:00)
[2025-04-13] MEDS: EZETIMIBE 10MG TABLET PO SCH (09:00)
[2025-04-13] MEDS: LINAGLIPTIN 5MG TABLET PO SCH (09:00)
[2025-04-13] MEDS: INSULIN GLARGINE 100 UNITS/ML SUBCUT SCH (10:46)
[2025-04-13 20:00] VITALS: BP 170/89; PULSE 70; RESP 19; TEMP 36.1; O2SAT 99
[2025-04-14 08:00] VITALS: BP 143/75; PULSE 103; RESP 18; TEMP 36.5; O2SAT 98
[2025-04-14] MEDS ORDERED: NALOXONE HCL 0.4MG/ML VIAL IV PRN (10:30)
[2025-04-14] MEDS: HYDROCODONE/ACETAMINOPHEN 5/325MG TABLET PO PRN (10:43)
[2025-04-14] MEDS: DIPHENHYDRAMINE HCL/ZINC ACET 28 GM CREAM TOP SCH (17:00)
[2025-04-14 20:00] VITALS: BP 170/80; PULSE 66; RESP 18; TEMP 36.2; O2SAT 100
[2025-04-14] MEDS: CLONIDINE 0.1MG TABLET PO PRN (21:52)
[2025-04-15 08:00] VITALS: BP 136/77; PULSE 73; RESP 18; TEMP 36.5; O2SAT 95
[2025-04-15 09:59] LABS: BASOPHILS % 0.3 % (0.0-2.0); EOSINOPHILS % 3.4 % (0.0-5.0); HEMATOCRIT. 38.3 % (42.0-52.0); HEMOGLOBIN. 12.4 g/dL (14.0-18.0); LYMPHOCYTES % 36.8 % (20.0-50.0); MEAN PLATELET VOLUME 8.6 fl (7.4-10.4); MONOCYTES % 10.2 % (2.0-8.0); NEUTROPHILS % 49.3 % (40.0-76.0); PLATELET 193 x1000/uL (130-400); RED BLOOD CELL COUNT 4.18 mill/uL (4.7-6.1); RED CELL DISTRIBUTION WIDTH 13.3 % (11.6-14.6)
[2025-04-15 10:10] LABS: CREATININE 1.6 mg/dL (0.6-1.3); UREA NITROGEN BLOOD 22 mg/dL (9-23)
[2025-04-15 10:12] LABS: ASPARTATE AMINOTRANSFERASE 20 IU/L (<34); BILIRUBIN TOTAL 0.5 mg/dL (0.1-1.0); PROTEIN TOTAL 5.7 g/dL (6.0-8.3)
[2025-04-15 10:44] LABS: VITAMIN B12 SERUM 702 pg/mL (211-911)
[2025-04-15 10:45] LABS: FOLIC ACID (FOLATE) SERUM 11.79 ng/mL (>5.38)
[2025-04-15] MEDS: SODIUM ZIRCONIUM CYCLOSILICATE 10GM/PACKET PO NR (12:14)
[2025-04-15 20:00] VITALS: BP 161/68; PULSE 62; RESP 18; TEMP 36.2; O2SAT 100
[2025-04-16 10:18] LABS: CREATININE 1.7 mg/dL (0.6-1.3); UREA NITROGEN BLOOD 25.0 mg/dL (9-23)
[2025-04-16 13:32] LABS: GLUCOSE URINE 2+ (NEGATIVE); KETONES URINE NEGATIVE (NEGATIVE); LEUKOCYTE ESTERASE URINE NEGATIVE (NEGATIVE); NITRITE URINE NEGATIVE (NEGATIVE); OCCULT BLOOD URINE NEGATIVE (NEGATIVE); PH URINE 5.5 (4.5-8.0); PROTEIN URINE 2+ (NEGATIVE); SPECIFIC GRAVITY URINE 1.015 (1.005-1.030); UROBILINOGEN URINE 0.2 E.U./dL (0.2-1.0)
[2025-04-16] MEDS: SODIUM ZIRCONIUM CYCLOSILICATE 10GM/PACKET PO NR (14:00)
[2025-04-16] MEDS: CHOLECALCIFEROL (D3) 1000 UNIT TABLET PO SCH (14:01)
[2025-04-16 14:21] LABS: CLARITY URINE SL HAZY (CLEAR); COLOR URINE STRAW (YELLOW)
[2025-04-16 14:23] LABS: BACTERIA URINE TRACE; COARSE GRANULAR CASTS URINE 0-5 /lpf; MUCUS URINE TRACE /lpf (NONE/TRACE); RBC URINE NONE SEEN /hpf (0-2); SQUAMOUS EPITHELIAL CELL URINE RARE /lpf (RARE/1+); WBC URINE 0-2 /hpf (0-2)
[2025-04-16] MEDS: ERGOCALCIFEROL 50000UNITS CAPSULE PO SCH (17:26)
[2025-04-16] MEDS: HYDROCODONE/ACETAMINOPHEN 10/325MG TABLET PO PRN (19:26)
[2025-04-16 20:00] VITALS: BP 125/75; PULSE 69; RESP 20; TEMP 36.3; O2SAT 97
[2025-04-16] MEDS: TAMSULOSIN HCL 0.4MG SR CAPSULE PO SCH (21:38)
[2025-04-17] MEDS: HYDROCODONE/ACETAMINOPHEN 5/325MG TABLET PO PRN (06:30)
[2025-04-17 08:00] VITALS: BP 129/68; PULSE 84; RESP 18; TEMP 36.5; O2SAT 98
[2025-04-17 09:35] LABS: BASOPHILS % 0.3 % (0.0-2.0); EOSINOPHILS % 2.7 % (0.0-5.0); HEMATOCRIT. 37.7 % (42.0-52.0); HEMOGLOBIN. 12.3 g/dL (14.0-18.0); LYMPHOCYTES % 31.2 % (20.0-50.0); MEAN PLATELET VOLUME 8.1 fl (7.4-10.4); MONOCYTES % 8.6 % (2.0-8.0); NEUTROPHILS % 57.2 % (40.0-76.0); PLATELET 193 x1000/uL (130-400); RED BLOOD CELL COUNT 4.09 mill/uL (4.7-6.1); RED CELL DISTRIBUTION WIDTH 13.0 % (11.6-14.6)
[2025-04-17 09:59] LABS: CREATININE 1.8 mg/dL (0.6-1.3); UREA NITROGEN BLOOD 25.0 mg/dL (9-23)
[2025-04-17] MEDS: SODIUM ZIRCONIUM CYCLOSILICATE 10GM/PACKET PO SCH (11:00)
[2025-04-17] MEDS: SODIUM CHLORIDE 0.45% 1,000 ML IV ONE (17:52)
[2025-04-17 20:00] VITALS: BP 113/68; PULSE 70; RESP 18; TEMP 36.4; O2SAT 97
[2025-04-18 06:55] LABS: BASOPHILS % 0.5 % (0.0-2.0); EOSINOPHILS % 2.5 % (0.0-5.0); HEMATOCRIT. 37.2 % (42.0-52.0); HEMOGLOBIN. 12.2 g/dL (14.0-18.0); LYMPHOCYTES % 34.4 % (20.0-50.0); MEAN PLATELET VOLUME 8.2 fl (7.4-10.4); MONOCYTES % 9.3 % (2.0-8.0); NEUTROPHILS % 53.3 % (40.0-76.0); PLATELET 199 x1000/uL (130-400); RED BLOOD CELL COUNT 4.05 mill/uL (4.7-6.1); RED CELL DISTRIBUTION WIDTH 13.4 % (11.6-14.6)
[2025-04-18 07:16] LABS: CREATININE 1.6 mg/dL (0.6-1.3); UREA NITROGEN BLOOD 25.0 mg/dL (9-23)
[2025-04-18 08:00] VITALS: BP 134/65; PULSE 74; TEMP 36.7; O2SAT 98
[2025-04-18] MEDS: HYDRALAZINE HCL 25MG TABLET PO SCH ×2 (09:02→15:22)
[2025-04-18] MEDS: GUAIFENESIN 600MG ER TABLET PO SCH (13:34)
[2025-04-18] MEDS: PENTOXIFYLLINE 400MG TABLET PO SCH (15:13)
[2025-04-18] MEDS: FLUTICASONE PROPIONATE 50MCG/SPRAY BOTTLE BOTHNSTRLS SCH (15:14)
[2025-04-18 20:00] VITALS: BP 150/75; PULSE 75; RESP 18; TEMP 36.4; O2SAT 97
[2025-04-19 07:27] LABS: CREATININE 1.7 mg/dL (0.6-1.3); UREA NITROGEN BLOOD 24.0 mg/dL (9-23)
[2025-04-19 08:00] VITALS: BP 143/59; PULSE 72; RESP 19; TEMP 36.7; O2SAT 99
[2025-04-19 19:44] VITALS: BP 159/74; PULSE 64; RESP 19; TEMP 36.7; O2SAT 99
[2025-04-20 06:00] VITALS: BP 136/52; PULSE 71
[2025-04-20 07:40] LABS: BASOPHILS % 0.4 % (0.0-2.0); EOSINOPHILS % 2.9 % (0.0-5.0); HEMATOCRIT. 36.7 % (42.0-52.0); HEMOGLOBIN. 11.9 g/dL (14.0-18.0); LYMPHOCYTES % 37.0 % (20.0-50.0); MEAN PLATELET VOLUME 8.8 fl (7.4-10.4); MONOCYTES % 9.1 % (2.0-8.0); NEUTROPHILS % 50.6 % (40.0-76.0); PLATELET 182 x1000/uL (130-400); RED BLOOD CELL COUNT 3.98 mill/uL (4.7-6.1); RED CELL DISTRIBUTION WIDTH 13.2 % (11.6-14.6)
[2025-04-20 07:58] LABS: CREATININE 1.7 mg/dL (0.6-1.3); UREA NITROGEN BLOOD 25 mg/dL (9-23)
[2025-04-20 08:00] LABS: PHOSPHORUS 3.4 mg/dL (2.5-4.9)
[2025-04-20] MEDS: SODIUM POLYSTYRENE SULFONATE 15 G/60 ML BOT PO SCH (12:36)
[2025-04-20] MEDS: MAGNESIUM 1 G PREMIX 100 ML IV SCH (14:02)
[2025-04-20 20:00] VITALS: BP 110/65; PULSE 81; RESP 19; TEMP 36.6; O2SAT 98
[2025-04-21 07:07] LABS: BASOPHILS % 0.3 % (0.0-2.0); EOSINOPHILS % 3.1 % (0.0-5.0); HEMATOCRIT. 34.2 % (42.0-52.0); HEMOGLOBIN. 11.3 g/dL (14.0-18.0); LYMPHOCYTES % 34.5 % (20.0-50.0); MEAN PLATELET VOLUME 9.0 fl (7.4-10.4); MONOCYTES % 8.9 % (2.0-8.0); NEUTROPHILS % 53.2 % (40.0-76.0); PLATELET 163 x1000/uL (130-400); RED BLOOD CELL COUNT 3.77 mill/uL (4.7-6.1); RED CELL DISTRIBUTION WIDTH 13.2 % (11.6-14.6)
[2025-04-21 07:45] LABS: CREATININE 1.6 mg/dL (0.6-1.3); UREA NITROGEN BLOOD 23 mg/dL (9-23)
[2025-04-21 07:47] LABS: PHOSPHORUS 3.3 mg/dL (2.5-4.9)
[2025-04-21 08:00] VITALS: BP 140/79; PULSE 81; RESP 19; TEMP 36.5; O2SAT 98
[2025-04-21] MEDS: MAGNESIUM 2 G PREMIX 50 ML IV SCH (10:55)
[2025-04-21] MEDS: HYDRALAZINE HCL 50MG TABLET PO SCH (14:44)
[2025-04-21 14:55] VITALS: BP 173/78; RESP 19; O2SAT 98
[2025-04-21 15:55] VITALS: BP 149/78; RESP 19; O2SAT 99
[2025-04-21 20:00] VITALS: BP 147/63; PULSE 82; RESP 20; TEMP 36.8; O2SAT 99
[2025-04-22 08:00] VITALS: BP 111/59; PULSE 87; RESP 18; TEMP 36.5; O2SAT 95
[2025-04-22 10:00] VITALS: BP 131/69
[2025-04-22] MEDS: INSULIN GLARGINE 100 UNITS/ML SUBCUT SCH (17:45)
[2025-04-22 20:00] VITALS: BP 169/74; PULSE 82; RESP 20; TEMP 36.2; O2SAT 99
[2025-04-23] VITALS: BP 140/59; PULSE 80
[2025-04-23 06:52] LABS: BASOPHILS % 0.4 % (0.0-2.0); EOSINOPHILS % 3.3 % (0.0-5.0); HEMATOCRIT. 34.0 % (42.0-52.0); HEMOGLOBIN. 11.2 g/dL (14.0-18.0); LYMPHOCYTES % 33.4 % (20.0-50.0); MEAN PLATELET VOLUME 9.1 fl (7.4-10.4); MONOCYTES % 10.6 % (2.0-8.0); NEUTROPHILS % 52.3 % (40.0-76.0); PLATELET 143 x1000/uL (130-400); RED BLOOD CELL COUNT 3.75 mill/uL (4.7-6.1); RED CELL DISTRIBUTION WIDTH 13.1 % (11.6-14.6)
[2025-04-23 07:09] LABS: CREATININE 1.6 mg/dL (0.6-1.3); UREA NITROGEN BLOOD 20 mg/dL (9-23)
[2025-04-23 08:00] VITALS: BP 151/70; PULSE 83; RESP 16; TEMP 36.4; O2SAT 98
[2025-04-23] MEDS ORDERED: HYDR50TA39 PO (10:23)
[2025-04-23 12:06] VITALS: BP 151/70; PULSE 83; RESP 18; TEMP 97.5
[2025-04-23] MEDS: HYDROCHLOROTHIAZIDE 12.5MG CAPSULE PO SCH (12:29)
[2025-04-23] MEDS ORDERED: INSULIN GLARGINE 100 UNITS/ML SUBCUT SCH (17:45)
== END 2025-04-23 16:02 | disposition home health service (06) | DRG 551 ==
PROVIDERS: ADMIT Physical Medicine & Rehabilitation Spinal Cord Injury Medicine; ATTEND Internal Medicine
DX: M48.02 Spinal stenosis, cervical region (principal); G82.50 Quadriplegia, unspecified; G93.41 Metabolic encephalopathy; I13.0 Hypertensive heart and chronic kidney disease with heart failure and stage 1 through stage 4 chronic kidney disease, or unspecified chronic kidney disease; I42.9 Cardiomyopathy, unspecified; N17.9 Acute kidney failure, unspecified; I50.42 Chronic combined systolic (congestive) and diastolic (congestive) heart failure; M47.812 Spondylosis without myelopathy or radiculopathy, cervical region; E11.319 Type 2 diabetes mellitus with unspecified diabetic retinopathy without macular edema; E11.22 Type 2 diabetes mellitus with diabetic chronic kidney disease; D69.6 Thrombocytopenia, unspecified; D51.0 Vitamin B12 deficiency anemia due to intrinsic factor deficiency; E05.90 Thyrotoxicosis, unspecified without thyrotoxic crisis or storm; E11.36 Type 2 diabetes mellitus with diabetic cataract; E11.43 Type 2 diabetes mellitus with diabetic autonomic (poly)neuropathy; E11.51 Type 2 diabetes mellitus with diabetic peripheral angiopathy without gangrene; E11.65 Type 2 diabetes mellitus with hyperglycemia; E55.9 Vitamin D deficiency, unspecified; E66.811 Obesity, class 1; E78.00 Pure hypercholesterolemia, unspecified; E83.42 Hypomagnesemia; E87.5 Hyperkalemia; F10.10 Alcohol abuse, uncomplicated; F14.10 Cocaine abuse, uncomplicated; F17.210 Nicotine dependence, cigarettes, uncomplicated; F39 Unspecified mood [affective] disorder; G47.33 Obstructive sleep apnea (adult) (pediatric); G89.29 Other chronic pain; J44.9 Chronic obstructive pulmonary disease, unspecified; M47.22 Other spondylosis with radiculopathy, cervical region; M50.10 Cervical disc disorder with radiculopathy, unspecified cervical region; N18.31 Chronic kidney disease, stage 3a; N40.0 Benign prostatic hyperplasia without lower urinary tract symptoms; N52.9 Male erectile dysfunction, unspecified; M43.11 Spondylolisthesis, occipito-atlanto-axial region; M25.78 Osteophyte, vertebrae; M15.9 Polyosteoarthritis, unspecified; Z96.641 Presence of right artificial hip joint; Z96.652 Presence of left artificial knee joint; I67.1 Cerebral aneurysm, nonruptured; I49.5 Sick sinus syndrome; K21.9 Gastro-esophageal reflux disease without esophagitis; R26.89 Other abnormalities of gait and mobility; M79.89 Other specified soft tissue disorders; R80.9 Proteinuria, unspecified; H40.9 Unspecified glaucoma; Z79.01 Long term (current) use of anticoagulants; Z68.32 Body mass index [BMI] 32.0-32.9, adult; Z79.4 Long term (current) use of insulin; Z79.84 Long term (current) use of oral hypoglycemic drugs; Z79.899 Other long term (current) drug therapy; Z83.3 Family history of diabetes mellitus; Z86.718 Personal history of other venous thrombosis and embolism; Z86.73 Personal history of transient ischemic attack (TIA), and cerebral infarction without residual deficits; Z91.199 Patient's noncompliance with other medical treatment and regimen due to unspecified reason; Z91.81 History of falling; Z95.810 Presence of automatic (implantable) cardiac defibrillator; Z79.82 Long term (current) use of aspirin
CPT/HCPCS: 36415; 80048; 80053; 81003; 82306; 82550; 82607; 82728; 82746; 82962; 83036; 83540; 83550; 83735; 84100; 84134; 84145; 84443; 85025; 92523; 92610; 97110; 97112; 97116; 97162; 97166; 97530; 97535; J1815; J3475; Q0163